=== PATIENT | male | born 1975 | race Caucasian/White ===

== ENCOUNTER 2022-03-22 08:44 | Outpatient (REF) | payer BC, SELFPAY ==
[2022-03-22 14:57] LABS: HCT 39.7 % (40.0-50.0); HGB 13.2 g/dL (13.5-17.5); MCH 28.8 pg (27.0-33.0); MCHC 33.2 % (32.0-36.0); MCV 87 fL (80-95); MPV 9.5 fL (8.0-11.0); Platelet Count 289 10^3/uL (130-400); RBC 4.59 10^6/uL (4.36-5.78); RDW 12.8 % (11.8-14.1); RDW-SD 40.5 fL; WBC 4.74 10^3/uL (4.4-10.8)
[2022-03-22 15:27] LABS: Anion Gap 4.9 mmol/L (3-11); BUN 10 mg/dL (7-18); CO2 29.1 mmol/L (21.0-32.0); CREATININE 0.9 mg/dL (0.70-1.30); Calculated LDL 156 mg/dL (<100); Chloride 104 mmol/L (98-107); Cholesterol 233 mg/dL (<200); Estimated GFR 105.35 (mL/min/1.73m2); Glucose 85 mg/dL (74-106); HDL Cholesterol 53 mg/dL (40-60); Potassium 4.3 mmol/L (3.5-5.1); Sodium 138 mmol/L (136-145); TSH 1.62 uIU/mL (0.36-3.74); Triglyceride 123 mg/dL (<150)
== END 2022-03-22 08:45 | disposition home or self-care (01) ==
LOC: NCHCN 08:44
PROVIDERS: Visit Provider Registered Nurse
DX: R53.83 Other fatigue (principal); R06.83 Snoring; H93.13 Tinnitus, bilateral; Z00.00 Encounter for general adult medical examination without abnormal findings
CPT/HCPCS: 80048; 80061; 85027; 84443

== ENCOUNTER 2022-08-23 15:19 | Outpatient (REF) | payer BC, SELFPAY ==
[2022-08-23 15:56] LABS: Abs Immature Grans 0.01 10^3/uL (0.0-0.06); Absolute Basophil Count 0.02 10^3/uL (0.0-0.2); Absolute Eosinophil Count 0.08 10^3/uL (0.0-0.7); Absolute Lymphocyte Count 2.34 10^3/uL (1.2-3.4); Absolute Monocyte Count 0.38 10^3/uL (0.1-0.8); Absolute Neutrophil Count 1.33 10^3/uL (1.2-6.7); Basophils % 0.5; Eosinophils % 1.9; HCT 41.2 % (40.0-50.0); Immature Grans % 0.2; Lymphocytes % 56.3; MCV 86 fL (80-95); MPV 9.5 fL (8.0-11.0); Monocytes % 9.1; Platelet Count 304 10^3/uL (130-400); RBC 4.82 10^6/uL (4.36-5.78); RDW 12.8 % (11.8-14.1); RDW-SD 40.1 fL; WBC 4.16 10^3/uL (4.4-10.8)
[2022-08-23 16:14] LABS: ESR 4 mm/hr (0-15)
[2022-08-23 17:18] LABS: Iron 119 ug/dL (65-175); Total Iron Binding Capacity 246 ug/dL (250-450); Transferrin Sat 48 % (20-55)
[2022-08-24 10:39] LABS: Calculated LDL 172 mg/dL (<100); Cholesterol 251 mg/dL (<200); HDL Cholesterol 56 mg/dL (40-60); Triglyceride 116 mg/dL (<150)
[2022-08-24 10:40] LABS: Ferritin 118 ng/mL (26-388); TSH 1.97 uIU/mL (0.36-3.74)
[2022-08-24 12:57] LABS: C-Reactive Protein 0.07 mg/dL (0.0-0.3)
== END 2022-08-23 15:20 | disposition home or self-care (01) ==
LOC: NCHCN 15:19
PROVIDERS: Visit Provider Family Medicine
DX: Z00.00 Encounter for general adult medical examination without abnormal findings (principal); R00.2 Palpitations; Z86.39 Personal history of other endocrine, nutritional and metabolic disease
CPT/HCPCS: 80061; 85652; 82728; 83540; 83550; 84443; 85025; 86140

== ENCOUNTER 2022-09-21 18:18 | Outpatient (REF) | payer BC, SELFPAY ==
[2022-09-21 21:10] LABS: HCT 37.8 % (40.0-50.0); HGB 12.7 g/dL (13.5-17.5); MCH 28.7 pg (27.0-33.0); MCHC 33.6 % (32.0-36.0); MCV 86 fL (80-95); MPV 9.5 fL (8.0-11.0); Platelet Count 302 10^3/uL (130-400); RBC 4.42 10^6/uL (4.36-5.78); RDW 12.8 % (11.8-14.1); RDW-SD 39.8 fL; WBC 5.38 10^3/uL (4.4-10.8)
[2022-09-21 21:21] LABS: ALT 38 U/L (16-63); AST 30 U/L (15-37); Albumin 4.1 g/dL (3.4-5.0); Alkaline Phosphatase 63 U/L (46-116); Anion Gap 5.7 mmol/L (3-11); BUN 15 mg/dL (7-18); Bilirubin, Total 0.2 mg/dL (0.2-1.0); CO2 30.3 mmol/L (21.0-32.0); CREATININE 1.3 mg/dL (0.70-1.30); Calcium 9.2 mg/dL (8.5-10.1); Chloride 102 mmol/L (98-107); Estimated GFR 67.76 (mL/min/1.73m2); Glucose 90 mg/dL (74-106); Potassium 4.2 mmol/L (3.5-5.1); Sodium 138 mmol/L (136-145); Total Protein 7.5 g/dL (6.4-8.2)
[2022-09-27 16:28] LABS: HLA-B27 Result Positive
== END 2022-09-21 18:19 | disposition home or self-care (01) ==
LOC: NCHCN 18:18
PROVIDERS: Visit Provider Family Medicine
DX: M47.9 Spondylosis, unspecified (principal); M46.1 Sacroiliitis, not elsewhere classified; D64.9 Anemia, unspecified; R10.32 Left lower quadrant pain; R00.2 Palpitations; R53.83 Other fatigue
CPT/HCPCS: 80053; 85027; 86812

== ENCOUNTER 2022-09-26 16:15 | Outpatient (REF) | payer BC, SELFPAY ==
[2022-09-30 14:35] LABS: Calprotectin <50.0 mcg/g
== END 2022-09-26 16:16 | disposition home or self-care (01) ==
LOC: NCHCN 16:15
PROVIDERS: Visit Provider Family Medicine
DX: R10.32 Left lower quadrant pain (principal)
CPT/HCPCS: 83993

== ENCOUNTER 2023-07-23 10:33 | Outpatient (REF) | payer BC, SELFPAY ==
[2023-07-23 15:32] LABS: Calculated LDL 182 mg/dL (<100); Cholesterol 294 mg/dL (<200); HDL Cholesterol 48 mg/dL (40-60); Triglyceride 321 mg/dL (<150)
== END 2023-07-23 10:34 | disposition home or self-care (01) ==
LOC: NCHCN 10:33
PROVIDERS: Referring Provider Family Medicine; Visit Provider Family Medicine
DX: E78.5 Hyperlipidemia, unspecified (principal)
CPT/HCPCS: 80061

== ENCOUNTER 2024-01-07 09:02 | Outpatient (REF) | payer BC, SELFPAY ==
--- OUTSIDE RECORDS SUMMARY | 2024-01-07 09:06 | XMS_ITS ---
Author Organization Unknown Address [address] [place] [address] [phone] Phone Care Team Providers Care Director Of Respiratory Therapy Name Role Phone ALEA Ely Attending Unavailable Social History Type Status Start Date End Date Code Code Syst em Sex Male Hospital Discharge Instructions Should you have any questions prior to discharge, please contact a member of your healthcare team. If you have left the hospital and have any questions, please contact your primary care physician. Reason For Referral No Data Found Plan of Treatment No Data Found Encounters Encounter Diagnosis Start Date Code Code Sys tem Snoring 02/09/2023 SNOMED-CT Personal Care Team Section Performer Name Performer Role Active Date Inactive Da te
--- OUTSIDE RECORDS SUMMARY | 2024-01-07 09:07 | XMS_ITS | Encounter Summary ---
Author Organization [facility] Address [address] [place] [address] Care Team Providers Care Back Sizer Name Role Phone Mariia Burt MD Primary Care Provider [phone] Reason for Visit * Reason Comments Eye Problem Ankylosing spondylit is - here for a complete exam per Rheumatology * Consult (Routine/Next Available) - Authorization Not Required Specialty Diagnoses / Procedures Referred By Contsoraida t Referred To Contact Ophthalmology Diagnoses Vision changes Tee Narayanan MBBS [address] [facility], [facility] [address] [place] [address] [address] Referral ID Status Reason Start Date Expiration Date Visits Requested Visits Authorized [id number] Authorization Not Required Specialty Services Required 01/04/2023 1 1 Encounter Details Date Type Department Care Team (Late st Contact Info) Description 04/23/2023 14:00 EST Office Visit [facility] Ophthalmology [address] [address] Mireille Williamson MD [address] [place] [phone] Social History Tobacco Use Types Packs/Day Years Used Date Smoking Tobacco: Never Smokeless Tobacco: Never Alcohol Use Standard Drinks/Week Comments Yes 1 (1 standard drink = 0.6 oz pur e alcohol) Sex and Gender Information Value Date Recorded Sex Assigned at Not on file Gender Identity Male 08/15/2021 15:14 EDT Sexual Orientation Not on file documented as of this encounter Functional Status Functional Status Response Date of Assess ment Are you deaf or do you have serious difficulty h earing? No 08/15/2021 Because of a physical, menta l, or emotional condition, does this person have difficulty doing errands alone such as visiting a doctor's office or shopping? No 04/11/2023 Cognitive Status Response Date of Assessm ent Because of a physical, menta l, or emotional condition, does this person have serious difficulty concentrating, remembering, or making decisions? No 04/11/2023 documented as of this encounter Progress Notes * Mireille Williamson MD - 04/23/2023 1400 EST Chief Complaint Patient presents with ??? Eye Problem Ankylosing spondylitis - here for a complete exam per Rheumatology HPI The patient is a 48 y.o. male with ankylosing spondylitis, diagnosed 01/2023 by Rheum (Oracio). Referred by Rheum for vision changes and concern for uveitis. Over the past couple of months pt has noticed an overall decrease in the vision, ruy distance and mid-distance, ruy when watching TV. Got specswith [facility] a number of months ago, has not gotten used to wearing them yet so has only worn them about 5% of the time (this is his first ever pair of glasses). No episodes of eye redness/pain. Sometimes when outside on a bright day or by a bright window will have a visual episode which lasts 15-30 min, will see blind spots off to the sides with fireworks going off, more often the left eye. He has mentioned this to previous docs who have not seemed concerned. Routine care with [facility]. Right Eye: Blurred Vision Left Eye: Blurred Vision Visual Aid: Glasses Current Rx Age Location: Pain: 0 - No pain Quality: Severity: Duration: Timing: Lasts: Context: Here for a complete exam has noticed a decrease in overall vision, saw [facility] 5 months ago and was given specs, has not worn them much. No pain or redness with the eyes. Does occas have light sensitivity due to headaches. Has a bump on left upper lid for years, no bleeding, no discharge, no change in size. 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 Plant Operator: Exposures: None Other: Attestation: Base Eye Exam Visual Acuity (Snellen - Linear) Right Left Dist sc 20/25 20/50 +2 Dist cc 20/20 20/20 Correction: Glasses Uncorrected VA checked post dilation Tonometry (Applanation, 14:10) Right Left Pressure 16 16 Pupils Pupils APD Right PERRL None Left PERRL None Visual Zepeda (Counting fingers) Right Left Full Full Extraocular Movement Right Left Full Full Neuro/Psych Oriented x3: Yes Mood/Affect: Normal Dilation Both eyes: Tropicamide 1%, Phenylephrine 2.5% @ 14:11 Slit Lamp and Fundus Exam External Exam Right Left External Normal Normal Slit Lamp Exam Right Left Lids/Lashes Normal Papillomatous lesion mid upper lid Conjunctiva/Sclera White and quiet White and quiet Cornea Clear, no KP Clear, no KP Anterior Chamber Deep and quiet, no cell Deep and quiet, no cell Iris Round and reactive, no synechiae Round and reactive, no synechiae Lens Very trace Nuclear Sclerosis Very trace Nuclear Sclerosis Fundus Exam Right Left Vitreous Normal Normal Disc Intact Rim Intact Rim C/D Ratio 0.1 0.1 Macula Normal Normal Vessels Normal Normal Periphery Normal Normal Refraction Wearing Rx Sphere Cylinder [place] Add Right -1.00 +0.75 089 +1.00 Left -1.25 +1.00 129 +1.00 Manifest Refraction (Auto) Sphere Cylinder [place] Right -1.25 +0.75 075 Left -1.00 +0.75 135 Pt defers DIAGNOSTIC TESTS: IMPRESSION & PLAN: ??? Spondyloarthropathy - ankylosing spondylitis, diagnosed 01/2023. HLA B27 pos. No h/o symptoms consistent with uveitis. No ocular finding suggestive of prior episodes of uveitis. - discussed potential eye involvement, urged to call here or [facility] with pain, decreased vision, light sensitivity, eye redness. - continue as per Rheum - f/u one year for complete exam (he prefers this here for now) ??? Migraine variant - symptoms of visual disturbance with bright light c/w migraine variant - discussed, observe ??? Refractive error - - continue in current rx, as per Terry - encouraged William to wear his specs more I have reviewed the patient's past medical, family, social and surgical history. I have also reviewed the patient's medications, allergies, and problem list. I performed my own HPI and have reviewed the tech's ROS as well. I completed this exam personally. No procedures were performed at the time of the visit. I am scribing for Mirielle Williamson MD, while she is personally performing the service. YOSHI Puri Patient Education Topic: ankylosing spondylitis Method: Verbal Taught to: Patient Barriers: None Outcomes: independent Signature: Mireille Williamson MD documented in this encounter Plan of Treatment Upcoming Encounters Date Type Department Care Team (Late st Contact Info) Description 04/10/2024 10:15 EST Office Visit [facility] Rheumatology [address] [place] [address] Tee Narayanan MBBS [address] [place] [address] [address] [place] [address] documented as of this encounter Visit Diagnoses Diagnosis Spondyloarthropathy- Primary Spondylosis of unspecified site without mention of myelopathy Migraine variant Variants of migraine, not elsewhere classified, without mention of intractable migraine without mention of status migrainosus Refractive error Unspecified disorder of refraction and accommodation documented in this encounter Eye Exam Visual Acuity (Snellen - Linear) Right eye Left eye Dist sc 20/25 20/50 +2 Dist cc 20/20 20/20 Correction: Glasses Uncorrected VA checked post dilation Tonometry (Applanation, 14:10) Right eye Left eye Pressure 16 16 Pupils Pupils APD Right eye PERRL None Left eye PERRL None Visual Zepeda (Counting fingers) Right eye Left eye Full Full Extraocular Movement Right eye Left eye Full Full Neuro/Psych Oriented x3: Yes Mood/Affect: Normal Dilation Both eyes: Tropicamide 1%, P henylephrine 2.5% @ 14:11 External Exam Right eye Left eye External Normal Normal Slit Lamp Exam Right eye Left eye Lids/Lashes Normal Papillomatous le alaina mid upper lid Conjunctiva/Sclera White and quiet White and isidro et Cornea Clear, no KP Clear, no KP Anterior Chamber Deep and quiet, no cell Deep an d quiet, no cell Iris Round and reactive, no synechiae Round and reactive, no synechiae Lens Very trace Nuclear Sclerosis Wanda y trace Nuclear Sclerosis Fundus Exam Right eye Left eye Posterior Vitreous Normal Normal Disc Intact Rim Intact Rim C/D Ratio 0.1 0.1 Macula Normal Normal Vessels Normal Normal Periphery Normal Normal Wearing Rx Sphere Cylinder [place] Add Right eye -1.00 +0.75 089 +1.00 Left eye -1.25 +1.00 129 +1.00 Manifest Refraction (Auto) Sphere Cylinder [place] Right eye -1.25 +0.75 075 Left eye -1.00 +0.75 135 Pt defers Care Teams Back Sizer Relationship Specialty Start Date End Date Mariia Burt MD [address] [place] [phone] PCP - General Family Medicine - Primary Care 08/25/22 documented as of this encounter
--- OUTSIDE RECORDS SUMMARY | 2024-01-07 09:07 | XMS_ITS | Encounter Summary ---
Author Organization [facility] Address [address] [place] [address] Care Team Providers Care Highway Technician Name Role Phone Mariia Burt MD Primary Care Provider [phone] Reason for Visit * Reason Onset Date Comments Prior Auth, Medication 05/24/2023 Humira Encounter Details Date Type Department Care Team (Late st Contact Info) Description 05/24/2023 Telephone [facility] - [facility] Rheumatology [address] [place], [place] [address] Tee Narayanan MBBS [address] [place] [address], [facility] [address] [place] [address] Prior Auth, Medication (Humira) Social History Tobacco Use Types Packs/Day Years [...] No 04/11/2023 documented as of this encounter Miscellaneous Notes * Telephone Encounter - Allyssa Delfina - 05/24/2023 0905 EST Prior Authorization Approval Medication: Humira pen 40mg q14d (Name, Strength, Frequency) Insurance: [employer] Insurance Type: Commercial Approval Dates: through 11/23/2023 Authorization Number: [id number] Benefits Information: Required Pharmacy: No requirement [facility] able to fill?: No Requirement Additional Info/Other Notes: uploaded to scans Prior Authorization Submission Process - Routine New Medication: Humira pen 40mg q14d (Name, Strength, Frequency) Insurance: [employer] Insurance Type: Commercial Date PA Request Received: 05/04/2023 PA Submission Date: 05/24/2023 CMM: [id number] Notes: Submitted by: Delfina Phone: [phone] documented in this encounter Plan of Treatment Upcoming Encounters Date Type Department Care Team (Late st Contact Info) Description 04/10/2024 10:15 EST Office Visit [facility] Rheumatology [address] [place] [address] Tee Narayanan MBBS [address] [facility], [facility] [address] [place] [address] documented as of this encounter Visit Diagnoses Not on filedocumented in this encounter Care Teams Highway Technician Relationship Specialty Start Date End Date Mariia Burt MD [address] [place] [address] PCP - General Family Medicine - Primary Care 08/25/22 documented as of this encounter
--- OUTSIDE RECORDS SUMMARY | 2024-01-07 09:07 | XMS_ITS | Encounter Summary ---
Author Organization [facility] Address [address] [place] [address] Care Team Providers Care Vegetable Trimmer Name Role Phone Mariia Burt MD Primary Care Provider [phone] Encounter Details Date Type Department Care Team (Latest Contact Info) Description 09/19/2023 Specialty Pharmacy [facility] [address] [place], [place] [address] [facility] Refill Coordination Outreach for Rheumatology Social History Tobacco Use Types Packs/Day Years [...] No 04/11/2023 documented as of this encounter Plan of Treatment Upcoming Encounters Date Type Department Care Team (Late st Contact Info) Description 04/10/2024 10:15 EST Office Visit [facility] - [facility] Rheumatology [address] [place] [address] Tee Narayanan MBBS [address] [facility], [address] [place] [phone] documented as of this encounter Visit Diagnoses Not on filedocumented in this encounter Care Teams Vegetable Trimmer Relationship Specialty Start Date End Date Mariia Burt MD [address] [place] [phone] PCP - General Family Medicine - Primary Care 08/25/22 documented as of this encounter
--- OUTSIDE RECORDS SUMMARY | 2024-01-07 09:07 | XMS_ITS ---
Author Organization Unknown Address [address] [place] [phone] Phone Care Team Providers Care Managed Care Provider Name Role Phone ALEA Ely Attending Unavailable [...] Diagnosis Start Date Code Code Sys tem Obstructive sleep apnea syndrome 07/20/2023 [id number] SNOMED-CT Personal Care Team Section Performer Name Performer Role Active Date Inactive Da braulio
--- OUTSIDE RECORDS SUMMARY | 2024-01-07 09:07 | XMS_ITS | Encounter Summary ---
Author Organization [facility] Address [address] [place] [address] Care Team Providers Care Bass Fisher Name Role Phone Mariia Burt MD Primary Care Provider [phone] Reason for Referral * Consult (Routine/Next Available) - Authorized Specialty Diagnoses / Procedures Referred By [facility] t Referred To Contact Pharmacy Diagnoses Ankylosing spondylitis of multiple sites in spine ([facility]) Tee Narayanan MBBS [address] [facility], [facility] [address] [place] [address] [facility] [address] [place] [phone] Referral ID Status Reason Start Date Expiration Date Visits Requested Visits Authorized [id number] Authorized Specialty Services Required 05/04/2023 1 1 Question Answer PA Type: New Medication to be Prior Authorized: Humira 40 mg/0.4 ml auto inject pens once every 2 weeks. Dispense 2 pens with 5 refills. Comments The purpose of this request is to inform precertification staff that the requested service needs to be reviewed for prior-authorization. New start of Humira for treatment of Ankylosing Spondylitis. Reason for Visit * Reason Onset Date Comments Medication Management 05/04/2023 Prior Auth, Medication 05/04/2023 Encounter Details Date Type Department Care Team ([facility] st Contact Info) Description 05/04/2023 Telephone [facility] Rheumatology [address] [place] [phone] Tee Narayanan MBBS [address] [facility], [address] [place] [address] Medication Management; Prior Auth, Medication Social History Tobacco Use Types Packs/Day Years [...] encounter Miscellaneous Notes * Telephone Encounter - Gricelda Rivera RN - 05/04/2023 1536 EST [id number] placed for humira and patient notified that can take 2-3 weeks and once approved, the pharmacist will call to schedule an injection teaching appointment. * Telephone Encounter - Zina Nice - 05/04/2023 1448 EST Patient called to let Dr. Narayanan know that he has decided he would like to go forward with starting on Humira. documented in this encounter Plan of Treatment Upcoming Encounters Date Type Department Care Team (Late st Contact Info) Description 04/10/2024 10:15 EST Office Visit [facility] - [facility] Rheumatology [address] [place] [address] Tee Narayanan MBBS [address] [facility], [address] [place] [phone] Scheduled Referrals Name Type Priority Associated Diagnoses Order Schedule AMB CONS/FOLLOW UP SPECIALTY PHARMACY Outpatient Referral Routine/Next Available Ankylosing spondylitis of multiple sites in spine ([facility]) Expected: 05/11/2023 (Approximate), Expires: 05/04/2024 documented as of this encounter Visit Diagnoses Diagnosis Ankylosing spondylitis of multiple sites in spine ([facility])- Primary Ankylosing spondylitis documented in this encounter Care Teams Bass Fisher Relationship Specialty Start Date End Date Mariia Burt MD [address] [place] [phone] PCP - General Family Medicine - Primary Care 08/25/22 documented as of this encounter
--- OUTSIDE RECORDS SUMMARY | 2024-01-07 09:07 | XMS_ITS | Referral Summary ---
Author Organization [facility] Address [address] [place] [address] Care Team Providers Care Health Care Legal Assistant Name Role Phone Mariia Burt MD Primary Care Provider [phone] Encounters Date Type Department Care Team Description 12/24/2023 Specialty Pharmacy [facility] [address] [place] [address] [id number] Humble Sheikh RPH Refill Coordination Outreach for Rheumatology 11/28/2023 Telephone [facility] Rheumatology & Immunology [address] [id number] Tee Narayanan MBBS 11/21/2023 Telephone [facility] Rheumatology Immunology [address] [id number] Tee Narayanan MBBS Medications Refill 11/21/2023 Specialty Pharmacy [facility] [address] [place] [address] [phone] Humble Sheikh RPH Refill Coordination Outreach for Rheumatology 10/22/2023 Specialty Pharmacy [facility] [address] [place] [address] [phone] Humble Sheikh RPH Refill Coordination Outreach for Rheumatology 10/15/2023 12:00 EDT Phlebotomy Only [facility] - Outpatient Phlebotomy Drawing [address] [place] [address] Lab, [facility] [place] Phlebotomy Sacroiliitis ([facility]-CMS); Spondyloarthropathy 10/11/2023 Specialty Pharmacy [facility] [address] [place] [phone] Humble Sheikh Faiza Clinical Follow-up (2x annually) for Rheumatology 10/09/2023 15:45 EDT Office Visit [facility] Rheumatology [address] [place] [address] Tee Narayanan MBBS Ankylosing spondylitis of multiple sites in spine (HCC-CMS) (Primary Dx); Sacroiliitis (HCC-CMS); Spondyloarthropathy; High risk medication use; Encounter for long-term (current) use of medications; Drug-induced immunodeficiency (HCC-CMS) from Last 3 Months Allergies No known active allergies Medications Medication Sig Dispensed Refills Start Date End Date Status cetirizine (ZYRTEC) 10 mg tablet Take 1 Tablet by mouth daily. Active meloxicam (MOBIC) 15 mg tablet Take 1 Tablet by mouth daily. Active psyllium husk (FIBER, PSYLLIUM HUSK,) 0.4 gram capsule Take by mouth. Active MULTIVITAMIN ORAL Take by mouth. Act gavin rosuvastatin (CRESTOR) 5 mg tablet Take 1 Tablet by mouth daily. 07/23/2023 Active adalimumab (HUMIRA,CF, PEN) 40 mg/0.4 mL penIndications:Undiffer entiated spondyloarthropathy,Derick ateral sacroiliitis (HCC-CMS) Inject 0.4 mL into the skin every 14 days. 2 Each 5 11/22/2023 Active Active Problems Problem Noted Date Diagnosed Date Blood test positive for human leukocyte antigen (HLA) B27 12/21/2022 Leukopenia 12/21/2022 Undifferentiated spondyloarthropathy 12/21/2022 Bilateral sacroiliitis (HCC-CMS) 12/21/2022 Anemia 12/21/2022 Abdominal pain, LLQ 12/21/2022 Pain of right hip joint 12/21/2022 Low back pain 12/21/2022 Hearing loss 12/21/2022 Palpitations 12/21/2022 Vitamin D deficiency 12/21/2022 Fatigue 12/21/2022 Snoring 12/21/2022 Vision changes 12/21/2022 IBS (irritable bowel syndrome) 12/21/2022 Tinnitus, bilateral 12/21/2022 Immunizations Name Administration Dates Next Due Covid-19 mRNA Vaccine (PFIZE R COVID-19) PF 0.3 ml IM (12 yrs+) 03/22/2022,04/10/2021,09/10/2020 Tdap Vaccine =>7YO IM 06/14/2016 Social History Tobacco Use Types Packs/Day Years Used Date Smoking Tobacco: Never Smokeless Tobacco: Never Tobacco Cessation:Counseling Given: Not Answered Alcohol Use Standard Drinks/Week Comments Yes 1 (1 standard drink = 0.6 oz pur e alcohol) Sex and Gender Information Value Date Recorded Sex Assigned at Not on file Gender Identity Male 08/15/2021 15:14 EDT Sexual Orientation Not on file Last Filed Vital Signs Vital Sign Reading Time Taken Comments Blood Pressure 122/70 10/09/2023 1535 EDT Pulse 69 10/09/2023 1535 EDT Temperature 36.2 ??C (97.2 ??F) 10/09/2023 1535 EDT Respiratory Rate 16 10/09/2023 1535 EDT Oxygen Saturation 95% 10/09/2023 1535 EDT Inhaled Oxygen Concentration - - Weight 83 kg (183 lb) 10/09/2023 1535 EDT Height 180.3 cm (5' 11) 10/09/2023 1535 EDT Body Mass Index 25.52 10/09/2023 1535 EDT Functional Status Functional Status Response Date of [...] concentrating, remembering, or making decisions? No 04/11/2023 Plan of Treatment Upcoming Encounters Date Type Department Care Team (Late st Contact Info) Description 04/10/2024 10:15 EST Office Visit [facility] - [facility] Rheumatology [address] [place] [address] Tee Narayanan MBBS [address] [facility], [facility] [address] [place] [address] Procedures Procedure Name Priority Date/Time Associated Diagnosis Comments COMPREHENSIVE METABOLIC PANEL (CMP) Routine 10/15/2023 12:01 EDT Sacroiliitis ([facility]) Spondyloarthropathy COMPLETE BLOOD COUNT AND DIFFERENTIAL Routine 10/15/2023 12:01 EDT Sacroiliitis ([facility]) Spondyloarthropathy HEPATITIS C AB W REFLEX TO HCV RNA BY PCR Routine 01/04/2023 10:07 EDT Sacroiliitis ([facility]) High risk medication use Encounter for long-term (current) use of medications Drug-induced immunodeficiency ([facility]) from Last 3 Months or Most Recently Relevant to Health Maintenance Results * (ABNORMAL) COMPLETE BLOOD COUNT AND DIFFERENTIAL (10/15/2023 12:01 EDT) WBC 7.21 4.00 - 10.40 K/cmm 10/15/2023 12:17 [facility] RBC 4.51 4.36 - 5.78 M/cmm 10/15/2023 12:17 [facility] Hemoglobin 13.1(L) 13.8 - 17.3 g/dL 10/15/2023 12:17 [facility] HCT 38.9(L) 39.5 - 50.2 % 10/15/2023 12:17 [facility] MCV 86 81 - 95 fL 10/15/2023 12:17 [facility] MCH 29.0 27.6 - 33.0 pg 10/15/2023 12:17 [facility] MCHC 33.7 32.8 - 36.4 g/dL 10/15/2023 12:17 [facility] RDW-CV 12.6 <14.2 % 10/15/2023 12:17 [facility] RDW-SD 39.6 <46.0 fl 10/15/2023 12:17 [facility] PLT 274 141 - 377 K/cmm 10/15/2023 12:17 [facility] MPV 9.2(L) 9.5 - 12.7 fL 10/15/2023 12:17 [facility] % Neutrophils 54.3 % 10/15/2023 12:17 [facility] % Lymphocytes 35.2 % 10/15/2023 12:17 [facility] % Monocytes 8.0 % 10/15/2023 12:17 [facility] % Eosinophils 1.4 % 10/15/2023 12:17 [facility] % Basophils 0.8 % 10/15/2023 12:17 [facility] % Immature Grans 0.3 % 10/15/19 12:17 [facility] Absolute Neutrophils 3.91 2.20 - 8.85 K/cmm 10/15/2023 12:17 [facility] Absolute Lymphocytes 2.54 1.09 - 3.30 K/cmm 10/15/2023 12:17 [facility] Absolute Monocytes 0.58 0.10 - 0.80 K/cmm 10/15/2023 12:17 [facility] Absolute Eosinophils 0.10 0.03 - 0.61 K/cmm 10/15/2023 12:17 [facility] ABS Basophils 0.06 0.01 - 0.11 K/cmm 10/15/2023 12:17 [facility] Absolute Immature Grans 0.02 0.00 - 0.06 K/cmm 10/15/2023 12:17 [facility] Type of Differential: Auto 10/15/2023 12:17 [facility] Blood VENOUS BLOOD / Unknown Venipuncture / Unknown 10/15/2023 12:01 EDT 10/15/2023 12:12 EDT Tee MASON PACKAGES & DNA PROBE ORDERABLES [facility] [address] [place] [address] * (ABNORMAL) COMPREHENSIVE METABOLIC PANEL (CMP) (10/15/2023 12:01 EDT) Sodium 139 136 - 145 mmol/L 10/15/2023 12:56 [facility] Potassium 4.4 3.5 - 5.0 mmol/L 10/15/2023 12:56 [facility] Chloride 105 96 - 110 mmol/L 10/15/2023 12:56 [facility] CO2 Total 30 22 - 32 mmol/L 10/15/2023 12:56 [facility] Glucose 87 70 - 99 mg/dl 10/15/2023 12:56 [facility] BUN 13 10 - 26 mg/dL 10/15/2023 12:56 [facility] Creatinine 0.79 0.66 - 1.25 mg/dL 10/15/2023 12:56 [facility] eGFR 109 >60 mL/min/1.7 3m2 10/15/2023 12:56 [facility] Total Protein 7.3 6.3 - 8.2 g/dL 10/15/2023 12:56 [facility] Albumin 4.2 3.4 - 4.9 g/dL 10/15/2023 12:56 [facility] Alkaline Phosphatase 71 38 - 126 U/L 10/15/2023 12:56 [facility] AST 32 15 - 46 U/L 10/15/2023 12:56 [facility] ALT 44 <50 U/L 10/15/2023 12:56 [facility] Bilirubin, Total <0.5 <1.4 mg/dL 10/15/19 12:56 [facility] Calcium 9.4 8.5 - 10.5 mg/dL 10/15/2023 12:56 [facility] Albumin/Globulin Ratio 1.4 1.0 - 2.5 10/15/2023 12:56 [facility] Anion Gap 4(L) 5 - 14 mmol/L 10/15/2023 12:56 EDT [facility] Blood VENOUS BLOOD / Unknown Venipuncture / Unknown 10/15/2023 12:01 EDT 10/15/2023 12:27 EDT Tee EWING CHEMISTRY & BLOOD GA S ORDERABLES [facility] [address] [place] [address] * HEPATITIS C AB W REFLEX TO HCV RNA BY PCR (01/04/2023 10:07 EDT) Hep C Antibody Negative Negative 01/04/2023 11:35 EDT [facility] Blood VENOUS BLOOD / Unknown Venipuncture / Unknown 01/04/2023 10:07 EDT 01/04/2023 10:22 EDT Tee EWING CHEMISTRY & BLOOD GA S ORDERABLES [facility] [address] [place] [address] from Last 3 Months or Most Recently Relevant to Health Maintenance Care Teams Health Care Legal Assistant Relationship Specialty Start Date End Date Mariia Burt MD [address] [place] [phone] PCP - General Family Medicine - Primary Care 08/25/22
--- OUTSIDE RECORDS SUMMARY | 2024-01-07 09:07 | XMS_ITS | Encounter Summary ---
Author Organization [facility] Address [address] [place] [address] Care Team Providers Care Junior Manufacturing Engineer Name Role Phone Mariia Burt MD Primary Care Provider [phone] Reason for Visit * Reason Comments Follow-up F/u Sacroiliitis, po ssible humaria? Or other medication to add to meloxicam Encounter Details Date Type Department Care Team (Late st Contact Info) Description 04/11/2023 14:00 EST Office Visit [facility] Rheumatology [address] [place] [address] Tee Narayanan MBBS [address] [facility], [facility] [address] [place] [address] Spondyloarthropathy (Primary Dx); Sacroiliitis (HCC-CMS) Social History Tobacco Use Types Packs/Day Years Used Date Smoking Tobacco: Never Smokeless Tobacco: Never Alcohol Use Standard Drinks/Week Comments Yes 1 (1 standard drink = 0.6 oz pur e alcohol) Sex and Gender Information Value Date Recorded Sex Assigned at Not on file Gender Identity Male 08/15/2021 15:14 EDT Sexual Orientation Not on file documented as of this encounter Last Filed Vital Signs Vital Sign Reading Time Taken Comments Blood Pressure 120/82 04/11/2023 1359 EST Pulse - - Temperature - - Respiratory Rate - - Oxygen Saturation - - Inhaled Oxygen Concentration - - Weight - - Height - - Body Mass Index - - documented in this encounter Functional Status Functional Status Response [...] No 04/11/2023 documented as of this encounter Patient Instructions * Patient Instructions* Tee Narayanan MBBS - 04/11/2023 14:00 EST - Continue home exercise. - Continue meloxicam 15mg daily as needed. Continuous NSAID use reported to slow radiographic progression. - Adalimumab use at patient request documented in this encounter Progress Notes * Tee Narayanan MBBS - 04/11/2023 1400 EST Images from the original note were not included. [facility] Rheumatology Clinic Follow-up Visit Date of Service: 04/11/2023 Patient ID Jayy Christianson Chief Compliant: Chief Complaint Patient presents with ??? Follow-up F/u Sacroiliitis, possible humaria? Or other medication to add to meloxicam Pertinent Rheumatologic history and problem list: > PC: SpA () > Workup: HLA-B27 positive and ESR 18 [ULN 15]. RF and CCP negative. Sacroiliitis on MRI. > Management: NSAIDs. Subjective / HPI: Jayy Christianson is an 48-year-old gentleman with a background of ankylosing spondylitis and tinnitus who presented to [facility] rheumatology clinic for a follow up visit. Mr. Christianson presented to [facility] rheumatology 01/2023 with a 7 - 8 year history of neck, lower back, hip, knee, ankle and right mid-foot arthralgia. Intermittent knee, ankle and right mid-foot arthralgia. Symptoms associated with prolonged morning stiffness. Additionally described abdominal pain (umbilical / LLQ pain, bloating, constipation / diarrhea without hematochezia or melena) and painless vision changes. Denied transient joint swelling, psoriasis, enthesitis, dactylitis or urethritis. On examination Guzman's 3cm (abnormal) and Occiput test 0cm. Labs remarkable for HLA-B27 positive and ESR18 [ULN 15]. RF and CCP negative. Spine radiographs identified mild lumbar spondylosis and early C-spine DDD without evidence of . MRI identified bilateral asymmetric sacroiliitis. Mr. Christianson was diagnosed with SpA (ankylosing spondylitis). Patient managed with home exercises, referred to PT, started on NSAIDs and information provided on TNFi Interval history: - (02/2023) ENT evaluation On assessment today: - Reports significant improving arthralgia involving neck, lower back, hips, knees and ankles in response to meloxicam. - Denies prolonged morning stiffness - Denies recent swollen, erythematous or warm joints. - Reduced visual acuity (L > R). Denies eye pain or redness. Awaiting ophthalmology evaluation. - Denies psoriasis, dactylitis or enthesitis. - Tolerating meloxicam well without side effects. Review of Systems: A complete 10 point ROS was performed and pertinent positive and negative findings listed in HPI, otherwise negative. ??? Medications and allergies reviewed ??? Problem list reviewed ??? Past medical history and Past surgical history reviewed Objective: Physical Exam BP 120/82 General: No acute distress. Alert, fully oriented. HEENT: Conjunctivae/corneas clear. Pupils equal, Sclerae anicteric. Mucus membranes moist; oropharynx clear. Neck symmetrical, trachea midline Extremities: Extremities without cyanosis or edema. Skin: No rashes or lesions Musculoskeletal: Hand: No synovitis, muscle wasting or deformity. Full range of movement. Elbow: No tenderness on palpation of medial or lateral epicondyle. Normal range of motion. No nodules. Shoulder: No synovitis or swelling. Normal range of motion in shoulders bilaterally. Spine: No vertebral or SI joint tenderness. Hip: No tenderness on palpation over anterior superior iliac crest, greater trochanter. No pain with log roll. ROM normal. MICHA negative. Knee: No asymmetry, muscle wasting, scars or deformities. No joint effusions or swellings. No tenderness on palpation of femoral epicondyle or tibial tuberosity. Foot: No tenderness on palpation of the ankles or MTP joint bilaterally. Normal range of movement. Guzman's 9cm Occiput test 0cm Investigations: I have independently reviewed labs / imaging Labs: - Reviewed Imaging: - (08/25/22) XR right hip: 1. No right hip osseous abnormality is detected. ?? - (08/25/22) XR lumbar spine: 1. ??Mild lumbar spondylosis. 2. ??No significant spondylolisthesis. ?? - (10/12/22) MR SI joints: - (01/04/23) XR C-spine: 1. No specific evidence of ankylosing spondylitis is detected. 2. Very early lower cervical spine degenerative disc and facet disease. ?? - (01/04/23) XR T-spine: 1. No thoracic spine bony abnormality detected. No imaging evidence of thoracic ankylosing spondylitis is seen. ?? Questionnaires: 04/11/2023 14:02 RAPID3 SCORES AND INTERPRETATION Functional Status 0 Pain Tolerance 1 Global Estimate 1 RAPID3 2 Interpretation Near Remission RAPID3 Score: As documented by Nurses/MAs during this visit and reviewed by me. Assessment & Plan: Ankylosing spondylitis: Dx 2022. HLA-B27 positive. Sacroiliitis on MRI. Currently managed with NSAIDs. On assessment today reports significant improvement in arthralgia (axial and b/l hip, knee and ankle) in response to regular meloxicam use. Denies prolonged morning stiffness. Tolerating meloxicam daily. Notes left > right reduced visual acuity. On examination increasing Guzman's 9cm and Occiput test 0cm. Labs reviewed (01/2023). RAPID3 2. Overall feel SpA well controlled. - Continue home exercise. - Continue meloxicam 15mg daily as needed. Continuous NSAID use reported to slow radiographic progression. - Discussed that adalimumab is more effective at NSAIDS at slowing disease progression and improving function over time, but, that symptoms are currently well controlled with regular NSAID use. Meloxicam can cause stomach upset, stomach bleeding, decreased kidney function, increased blood pressure,increased risk of heart attack and stroke. If taking one of these medications daily, it is recommended to monitor blood counts, liver and kidney function every 3-4 months. - Submit adalimumab 40mg every 14-days prior auth at patient request. Potential to increase dosing interval to 21- or 28-days if symptoms were well controlled. Health maintenance: - Order CBC and CMP every 3-months with regular NSAID use. - Hepatitis serologies and quantiferon negative (2022) - Immunizations: Recommend COVID19 booster and seasonal flu vaccine. - Awaiting ophthalmology evaluation ? uveitis 04/[address] Narayanan in 3 months MARLON Sutherland, 04/11/2023 14:32 I spent a total of 30 minutes on the date of this encounter meeting with the patient and reviewing documentation/coordinating care as described in the above note. No procedures were performed at the time of the visit. documented in this encounter Plan of Treatment Upcoming Encounters Date Type Department Care Team (Late st Contact Info) Description 04/10/2024 10:15 EST Office Visit [facility] Rheumatology [address] [place] [address] Tee Narayanan MBBS [address] [facility] [address] [place] [address] Scheduled Orders Name Type Priority Associated Diagnoses Orde r Schedule COMPLETE BLOOD COUNT AND DIFFERENTIAL Lab Routine Sacroiliitis ([facility]) Spondyloarthropathy Every 12-Weeks for 12 Occurrences starting 04/11/2023 until 04/11/2024, 2 completed COMPREHENSIVE METABOLIC PANEL (CMP) Lab Routine Sacroiliitis ([facility]) Spondyloarthropathy Every 12-Weeks for 12 Occurrences starting 04/11/2023 until 04/11/2024, 2 completed documented as of this encounter Results * (ABNORMAL) COMPREHENSIVE METABOLIC PANEL (CMP) (10/15/2023 12:01 EDT) Sodium 139 136 - 145 mmol/L 10/15/2023 12:56 [facility] Potassium 4.4 3.5 - 5.0 mmol/L 10/15/2023 12:56 [facility] Chloride 105 96 - 110 mmol/L 10/15/2023 12:56 [facility] CO2 Total 30 22 - 32 mmol/L 10/15/2023 12:56 [facility] Glucose 87 70 - 99 mg/dl 10/15/2023 12:56 [facility] BUN 13 10 - 26 mg/dL 10/15/2023 12:56 [facility] Creatinine 0.79 0.66 - 1.25 mg/dL 10/15/2023 12:56 [facility] eGFR 109 >60 mL/min/1.7 3m2 10/15/2023 12:56 [facility] Total Protein 7.3 6.3 - 8.2 g/dL 10/15/2023 12:56 [facility] Albumin 4.2 3.4 - 4.9 g/dL 10/15/2023 12:56 [facility] Alkaline Phosphatase 71 38 - 126 U/L 10/15/2023 12:56 [facility] AST 32 15 - 46 U/L 10/15/2023 12:56 [facility] ALT 44 <50 U/L 10/15/2023 12:56 [facility] Bilirubin, Total <0.5 <1.4 mg/dL 10/15/19 12:56 [facility] Calcium 9.4 8.5 - 10.5 mg/dL 10/15/2023 12:56 [facility] Albumin/Globulin Ratio 1.4 1.0 - 2.5 10/15/2023 12:56 [facility] Anion Gap 4(L) 5 - 14 mmol/L 10/15/2023 12:56 [facility] Blood VENOUS BLOOD / Unknown Venipuncture / Unknown 10/15/2023 12:01 EDT 10/15/2023 12:27 EDT Tee MASON CHEMISTRY & BLOOD GA S ORDERABLES [facility] [address] [place] [address] * (ABNORMAL) COMPLETE BLOOD COUNT AND DIFFERENTIAL (10/15/2023 12:01 EDT) WBC 7.21 4.00 - 10.40 K/cmm 10/15/2023 12:17 [facility] RBC 4.51 4.36 - 5.78 M/cmm 10/15/2023 12:17 [facility] Hemoglobin 13.1(L) 13.8 - 17.3 g/dL 10/15/2023 12:17 [facility] HCT 38.9(L) 39.5 - 50.2 % 10/15/2023 12:17 [facility] MCV 86 81 - 95 fL 10/15/2023 12:17 [facility] MCH 29.0 27.6 - 33.0 pg 10/15/2023 12:17 [facility] MCHC 33.7 32.8 - 36.4 g/dL 10/15/2023 12:17 [facility] RDW-CV 12.6 <14.2 % 10/15/2023 12:17 [facility] RDW-SD 39.6 <46.0 fl 10/15/2023 12:17 [facility] PLT 274 141 - 377 K/cmm 10/15/2023 12:17 [facility] MPV 9.2(L) 9.5 - 12.7 fL 10/15/2023 12:17 [facility] % Neutrophils 54.3 % 10/15/2023 12:17 [facility] % Lymphocytes 35.2 % 10/15/2023 12:17 [facility] % Monocytes 8.0 % 10/15/2023 12:17 [facility] % Eosinophils 1.4 % 10/15/2023 12:17 [facility] % Basophils 0.8 % 10/15/2023 12:17 [facility] % Immature Grans 0.3 % 10/15/19 12:17 [facility] Absolute Neutrophils 3.91 2.20 - 8.85 K/cmm 10/15/2023 12:17 [facility] Absolute Lymphocytes 2.54 1.09 - 3.30 K/cmm 10/15/2023 12:17 [facility] Absolute Monocytes 0.58 0.10 - 0.80 K/cmm 10/15/2023 12:17 EDT [facility] Absolute Eosinophils 0.10 0.03 - 0.61 K/cmm 10/15/2023 12:17 [facility] ABS Basophils 0.06 0.01 - 0.11 K/cmm 10/15/2023 12:17 [facility] Absolute Immature Grans 0.02 0.00 - 0.06 K/cmm 10/15/2023 12:17 T [facility] Type of Differential: Auto 10/15/2023 12:17 [facility] Blood VENOUS BLOOD / Unknown Venipuncture / Unknown 10/15/2023 12:01 EDT 10/15/2023 12:12 EDT Tee MASON PACKAGES & DNA PROBE ORDERABLES Performing Organization Address City/State/[facility] Co de Phone Number [facility] [address] [place] [address] * COMPREHENSIVE METABOLIC PANEL (CMP) (04/11/2023 14:46 EST) Sodium 137 136 - 145 mmol/L 04/11/2023 16:02 [facility] Potassium 5.0 3.5 - 5.0 mmol/L 04/11/2023 16:02 [facility] Chloride 103 96 - 110 mmol/L 04/11/2023 16:02 [facility] CO2 Total 27 22 - 32 mmol/L 04/11/2023 16:02 [facility] Glucose 93 70 - 99 mg/dl 04/11/2023 16:02 [facility] BUN 15 10 - 26 mg/dL 04/11/2023 16:02 [facility] Creatinine 0.88 0.66 - 1.25 mg/dL 04/11/2023 16:02 [facility] eGFR 105 >60 mL/min/1.7 3m2 04/11/2023 16:02 [facility] Total Protein 7.6 6.3 - 8.2 g/dL 04/11/2023 16:02 [facility] Albumin 4.3 3.4 - 4.9 g/dL 04/11/2023 16:02 [facility] Alkaline Phosphatase 51 38 - 126 U/L 04/11/2023 16:02 [facility] AST 28 15 - 46 U/L 04/11/2023 16:02 [facility] ALT 19 <50 U/L 04/11/2023 16:02 [facility] Bilirubin, Total 0.5 <1.4 mg/dL 04/11/20 16:02 [facility] Calcium 9.3 8.5 - 10.5 mg/dL 04/11/2023 16:02 [facility] Albumin/Globulin Ratio 1.3 1.0 - 2.5 g/dL 04/11/2023 16:02 [facility] Anion Gap 7 5 - 14 mmol/L 04/11/2023 16:02 [facility] Blood VENOUS BLOOD / Unknown Venipuncture / Unknown 04/11/2023 14:46 EST 04/11/2023 15:30 EST Tee MASON CHEMISTRY & BLOOD GA S ORDERABLES Performing Organization Address City/State/[facility] Co de Phone Number [facility] [address] [place] [address] * (ABNORMAL) COMPLETE BLOOD COUNT AND DIFFERENTIAL (04/11/2023 14:46 EST) WBC 4.25 4.00 - 10.40 K/cmm 04/11/2023 15:54 [facility] RBC 4.45 4.36 - 5.78 M/cmm 04/11/2023 15:54 [facility] Hemoglobin 12.7(L) 13.8 - 17.3 g/dL 04/11/2023 15:54 [facility] HCT 37.4(L) 39.5 - 50.2 % 04/11/2023 15:54 [facility] MCV 84 81 - 95 fL 04/11/2023 15:54 [facility] MCH 28.5 27.6 - 33.0 pg 04/11/2023 15:54 [facility] MCHC 34.0 32.8 - 36.4 g/dL 04/11/2023 15:54 [facility] RDW-CV 12.4 <14.2 % 04/11/2023 15:54 [facility] RDW-SD 37.4 <46.0 fl 04/11/2023 15:54 [facility] PLT 282 141 - 377 K/cmm 04/11/2023 15:54 [facility] MPV 9.5 9.5 - 12.7 fL 04/11/2023 15:54 [facility] % Neutrophils 29.8 % 04/11/2023 15:54 [facility] % Lymphocytes 57.6 % 04/11/2023 15:54 [facility] % Monocytes 10.1 % 04/11/2023 15:54 [facility] % Eosinophils 1.6 % 04/11/2023 15:54 [facility] % Basophils 0.9 % 04/11/2023 15:54 [facility] % Immature Grans 0.0 % 04/11/20 15:54 [facility] Absolute Neutrophils 1.26(L) 2.20 - 8.85 K/cmm 04/11/2023 15:54 [facility] Absolute Lymphocytes 2.45 1.09 - 3.30 K/cmm 04/11/2023 15:54 [facility] Absolute Monocytes 0.43 0.10 - 0.80 K/cmm 04/11/2023 15:54 [facility] Absolute Eosinophils 0.07 0.03 - 0.61 K/cmm 04/11/2023 15:54 [facility] ABS Basophils 0.04 0.01 - 0.11 K/cmm 04/11/2023 15:54 [facility] Absolute Immature Grans 0.00 0.00 - 0.06 K/cmm 04/11/2023 15:54 EST [facility] Type of Differential: Auto 04/11/2023 15:54 EST [facility] Blood VENOUS BLOOD / Unknown Venipuncture / Unknown 04/11/2023 14:46 EST 04/11/2023 15:51 EST Tee MASON PACKAGES & DNA PROBE ORDERABLES Performing Organization Address City/State/[facility] Co de Phone Number [facility] [address] [place] [address] documented in this encounter Visit Diagnoses Diagnosis Spondyloarthropathy- Primary Spondylosis of unspecified site without mention of myelopathy Sacroiliitis ([facility]) Sacroiliitis, not elsewhere classified documented in this encounter Care Teams Junior Manufacturing Engineer Relationship Specialty Start Date End Date Mariia Burt MD [address] [place] [address] PCP - General Family Medicine - Primary Care 08/25/22 documented as of this encounter
--- OUTSIDE RECORDS SUMMARY | 2024-01-07 09:07 | XMS_ITS | Clinical Summary ---
Author Organization [facility] Address [address] [place] [address] Care Team Providers Care Program Services Assistant Name Role Phone Mariia Burt MD Primary Care Provider [phone] Allergies No known active allergies Medications Medication [...] (irritable bowel syndrome) 12/21/2022 Tinnitus, bilateral 12/21/2022 Encounters Date Type Department Care Team Description 12/24/2023 Specialty Pharmacy [facility] [address] [place] [address] [facility]ble Sheikh [facility] Refill Coordination Outreach for Rheumatology 11/28/2023 Telephone [facility] Rheumatology & Immunology [address] [address] Tee Narayanan MBBS 11/21/2023 Telephone [facility] Rheumatology Immunology [address] [address] Tee Narayanan MBBS Medications Refill 11/21/2023 Specialty Pharmacy [facility] [address] [place] [address] [phone] Humble Sheikh [facility] Refill Coordination Outreach for Rheumatology 10/22/2023 Specialty Pharmacy [facility] [address] [place] [address] [phone] Humble Sheikh [facility] Refill Coordination Outreach for Rheumatology 10/15/2023 12:00 EDT Phlebotomy Only [facility] - Outpatient Phlebotomy Drawing [address] [place] [address] Lab, [facility]le[place]omy Sacroiliitis ([facility]); Spondyloarthropathy 10/11/2023 [facility] [address] [address] Humble Sheikh Faiza Clinical Follow-up (2x annually) for Rheumatology 10/09/2023 15:45 EDT Office Visit [facility] Rheumatology [address] [place] [address] Tee Narayanan MBBS Ankylosing spondylitis of multiple sites in spine ([facility]) (Primary Dx); Sacroiliitis ([facility]); Spondyloarthropathy; High risk medication use; Encounter for long-term (current) use of medications; Drug-induced immunodeficiency (HCC-CMS) from Last 3 Months Immunizations Name Administration Dates Next Due Covid-19 mRNA Vaccine (PFIZE R COVID-19) PF 0.3 ml IM (12 yrs+) 03/22/2022,04/10/2021,09/10/2020 Tdap Vaccine =>7YO IM 06/14/2016 Medical History Medical History Date Comments Dyslipidemia Low back pain Environmental allergies Family History Medical History Relation Comments Heart Disease Father Diabetes Maternal Grandfather Relation Status Comments Father Maternal Grandfather Social History Tobacco Use Types Packs/Day Years Used Date Smoking Tobacco: Never Smokeless Tobacco: Never Tobacco Cessation:Counseling Given: Not Answered Alcohol Use Standard Drinks/Week Comments Yes 1 (1 standard drink = 0.6 oz pur e alcohol) Sex and Gender Information Value Date Recorded Sex Assigned at Not on file Gender Identity Male 08/15/2021 15:14 EDT Sexual Orientation Not on file Obstetrics History Last Filed Vital Signs Vital Sign Reading [...] Body Mass Index 25.52 10/09/2023 1535 EDT Plan of Treatment Upcoming Encounters Date Type Department Care Team (Late st Contact Info) Description 04/10/2024 10:15 EST Office Visit [facility] Rheumatology [address] [place] [address] Tee Narayanan MBBS 111 [facility], [address] [place] [address] Health Maintenance Due Date Last Done Comments Hepatitis B Vaccine (1 of 3 - 19+ 3-dose series) 1993 COVID-19 Vaccine (4 - 2022-2 4 season) 2023 03/22/2022, 04/10/2021, 09/10/2020 Hepatitis C Screen Completed 01/04/2023 Procedures Procedure Name Priority Date/Time Associated Diagnosis Comments COMPREHENSIVE METABOLIC PANEL (CMP) Routine 10/15/2023 12:01 EDT Sacroiliitis ([facility]) Spondyloarthropathy COMPLETE BLOOD COUNT AND DIFFERENTIAL Routine 10/15/2023 12:01 EDT Sacroiliitis ([facility]) Spondyloarthropathy HEPATITIS C AB W REFLEX TO HCV RNA BY PCR Routine 01/04/2023 10:07 EDT Sacroiliitis ([facility]) High risk medication use Encounter for long-term (current) use of medications Drug-induced immunodeficiency ([facility]) from Last 3 Months or Most Recently Relevant to Health Maintenance Results * (ABNORMAL) COMPLETE BLOOD COUNT AND DIFFERENTIAL (10/15/2023 12:01 EDT) WBC 7.21 4.00 - 10.40 K/cmm 10/15/2023 12:17 [facility] RBC 4.51 4.36 - 5.78 M/cmm 10/15/2023 12:17 [facility] Hemoglobin 13.1(L) 13.8 - 17.3 g/dL 10/15/2023 12:17 [facility] HCT 38.9(L) 39.5 - 50.2 % 10/15/2023 12:17 [facility] MCV 86 81 - 95 fL 10/15/2023 12:17 [facility] MCH 29.0 27.6 - 33.0 pg 10/15/2023 12:17 [facility] MCHC 33.7 32.8 - 36.4 g/dL 10/15/2023 12:17 [facility] RDW-CV 12.6 <14.2 % 10/15/2023 12:17 [facility] RDW-SD 39.6 <46.0 fl 10/15/2023 12:17 [facility] PLT 274 141 - 377 K/cmm 10/15/2023 12:17 [facility] MPV 9.2(L) 9.5 - 12.7 fL 10/15/2023 12:17 [facility] % Neutrophils 54.3 % 10/15/2023 12:17 [facility] % Lymphocytes 35.2 % 10/15/2023 12:17 [facility] % Monocytes 8.0 % 10/15/2023 12:17 [facility] % Eosinophils 1.4 % 10/15/2023 12:17 [facility] % Basophils 0.8 % 10/15/2023 12:17 [facility] % Immature Grans 0.3 % 10/15/19 12:17 [facility] Absolute Neutrophils 3.91 2.20 - 8.85 K/cmm 10/15/2023 12:17 [facility] Absolute Lymphocytes 2.54 1.09 - 3.30 K/cmm 10/15/2023 12:17 [facility] Absolute Monocytes 0.58 0.10 - 0.80 K/cmm 10/15/2023 12:17 [facility] Absolute Eosinophils 0.10 0.03 - 0.61 K/cmm 10/15/2023 12:17 [facility] ABS Basophils 0.06 0.01 - 0.11 K/cmm 10/15/2023 12:17 [facility] Absolute Immature Grans 0.02 0.00 - 0.06 K/cmm 10/15/2023 12:17 [facility] Type of Differential: Auto 10/15/2023 12:17 [facility] Blood VENOUS BLOOD / Unknown Venipuncture / Unknown 10/15/2023 12:01 EDT 10/15/2023 12:12 EDT Tee MASON PACKAGES & DNA PROBE ORDERABLES [facility] [address] [place] [address] * (ABNORMAL) COMPREHENSIVE METABOLIC PANEL (CMP) (10/15/2023 12:01 EDT) Sodium 139 136 - 145 mmol/L 10/15/2023 12:56 [facility] Potassium 4.4 3.5 - 5.0 mmol/L 10/15/2023 12:56 [facility] Chloride 105 96 - 110 mmol/L 10/15/2023 12:56 [facility] CO2 Total 30 22 - 32 mmol/L 10/15/2023 12:56 [facility] Glucose 87 70 - 99 mg/dl 10/15/2023 12:56 [facility] BUN 13 10 - 26 mg/dL 10/15/2023 12:56 [facility] Creatinine 0.79 0.66 - 1.25 mg/dL 10/15/2023 12:56 [facility] eGFR 109 >60 mL/min/1.7 3m2 10/15/2023 12:56 [facility] Total Protein 7.3 6.3 - 8.2 g/dL 10/15/2023 12:56 [facility] Albumin 4.2 3.4 - 4.9 g/dL 10/15/2023 12:56 [facility] Alkaline Phosphatase 71 38 - 126 U/L 10/15/2023 12:56 [facility] AST 32 15 - 46 U/L 10/15/2023 12:56 [facility] ALT 44 <50 U/L 10/15/2023 12:56 [facility] Bilirubin, Total <0.5 <1.4 mg/dL 10/15/19 12:56 [facility] Calcium 9.4 8.5 - 10.5 mg/dL 10/15/2023 12:56 [facility] Albumin/Globulin Ratio 1.4 1.0 - 2.5 10/15/2023 12:56 [facility] Anion Gap 4(L) 5 - 14 mmol/L 10/15/2023 12:56 EDT [facility] Blood VENOUS BLOOD / Unknown Venipuncture / Unknown 10/15/2023 12:01 EDT 10/15/2023 12:27 EDT Tee EWING CHEMISTRY & BLOOD GA S ORDERABLES [facility] [address] [place] [address] * HEPATITIS C AB W REFLEX TO HCV RNA BY PCR (01/04/2023 10:07 EDT) Hep C Antibody Negative Negative 01/04/2023 11:35 EDT [facility] Blood VENOUS BLOOD / Unknown Venipuncture / Unknown 01/04/2023 10:07 EDT 01/04/2023 10:22 EDT Tee EWING CHEMISTRY & BLOOD GA S ORDERABLES [facility] [address] [place] [address] from Last 3 Months or Most Recently Relevant to Health Maintenance Care Teams Program Services Assistant Relationship Specialty Start Date End Date Mariia Burt MD [address] [place] [phone] PCP - General Family Medicine - Primary Care 08/25/22
--- OUTSIDE RECORDS SUMMARY | 2024-01-07 09:07 | XMS_ITS | Encounter Summary ---
Author Organization [facility] Address [address] [place] [address] Care Team Providers Care Cement Tester Assistant Name Role Phone Mariia Burt MD Primary Care Provider Encounter Details Date Type Department Care Team (Latest Contact Info) Description 12/24/2023 Specialty Pharmacy [facility] [address] [place], [place] [phone] Humble Sheikh [facility] Refill Coordination Outreach for Rheumatology Social History [...] Info) Description 04/10/2024 10:15 EST Office Visit [facility] - [facility] Rheumatology [address] [place] [address] Tee Narayanan MBBS 111 [facility], [address] [place] [phone] documented as of this encounter Visit Diagnoses Not on filedocumented in this encounter Care Teams Cement Tester Assistant Relationship Specialty Start Date End Date Mariia Burt MD [address] [place] [phone] PCP - General Family Medicine - Primary Care 08/25/22 documented as of this encounter
--- OUTSIDE RECORDS SUMMARY | 2024-01-07 09:07 | XMS_ITS | Encounter Summary ---
Author Organization [facility] Address [address] [place] [address] Care Team Providers Care Conference Reservationist Name Role Phone Mariia Burt MD Primary Care Provider [phone] Encounter Details Date Type Department Care Team (Late st Contact Info) Description 11/28/2023 Telephone [facility] Rheumatology & Immunology - [address] [phone] Tee Narayanan MBBS [address] [place] [address], [address] [place] [address] Social History Tobacco Use Types Packs/Day Years [...] encounter Miscellaneous Notes * Telephone Encounter - Gin Lawton - 11/28/2023 1658 EDT Prior Authorization Approval Medication: Humira 40mg/0.4ml, inject 0.4 mL into the skin every 14 days Insurance: [place] Insurance Type: Commercial Approval Dates: 11/29/23-05/30/24 Authorization Number: [id number] Required Pharmacy: [facility] able to fill?: YES Route to [facility] (if applicable): No Prior Authorization Submission Process - Urgent Re-Auth Medication: Humira 40mg/0.4ml, inject 0.4 mL into the skin every 14 days Insurance: [employer] Insurance Type: Commercial Date PA Request Received: 11/28/23 PA Submission Date: 11/29/23 CMM: [id number] Notes: DX: Undifferentiated spondyloarthropathy M47.819,Bilateral sacroiliitis M46.1 Submitted by: [facility] Phone: [phone] * Telephone Encounter - Joi Martin - 11/28/2023 1649 EDT SPRX Request for PA/Funding Drug Name: Humira Next Injection Date: 12/03/23 RX Insurance: [facility] Qty Remainin PA Required: Yes Funding Needed: No documented in this encounter Plan of Treatment Upcoming Encounters Date Type Department Care Team (Late st Contact Info) Description 04/10/2024 10:15 EST Office Visit [facility] Rheumatology [address] [place] [address] Tee Narayanan MBBS 111 [facility] [address] [place] [address] documented as of this encounter Visit Diagnoses Not on filedocumented in this encounter Care Teams Conference Reservationist Relationship Specialty Start Date End Date Mariia Burt MD [address] [place] [phone] PCP - General Family Medicine - Primary Care 08/25/22 documented as of this encounter
--- OUTSIDE RECORDS SUMMARY | 2024-01-07 09:07 | XMS_ITS | Encounter Summary ---
Author Organization [facility] Address [address] [place] [address] Care Team Providers Care Financial Services Professional Name Role Phone Mariia Burt MD Primary Care Provider [phone] Reason for Visit * Reason Onset Date Comments Results 01/05/2023 Encounter Details Date Type Department Care Team (Late st Contact Info) Description 01/05/2023 Telephone [facility] Rheumatology & Immunology - [address] [phone] Tee Narayanan MBBS [address] [place] [address], [address] [place] [address] Results Social History Tobacco Use Types Packs/Day Years [...] have serious difficulty h earing? No 08/15/2021 documented as of this encounter Miscellaneous Notes * Telephone Encounter - Tee Narayanan MBBS - 01/05/2023 4288 EDT Telephone call: S: - Unable to reach directly by phone. Voicemail message left. O: - (01/04/23) Labs: K 5.3 and Hb 13.7. ESR 18. CBC and CMP unremarkable. CRP wnl. Lyme IgM equivocal. RF and CCP negative. Hepatitis and quantiferon negative (01/04/23) XR C-spine: 1. No specific evidence of ankylosing spondylitis is detected. 2. Very early lower cervical spine degenerative disc and facet disease. ?? (01/04/23) XR T-spine: 1. No thoracic spine bony abnormality detected. No imaging evidence of thoracic ankylosing spondylitis is seen. Impression: - Awaiting lyme WB - Hepatitis and quantiferon negative (2022) - Borderline elevated ESR - Autoimmune serologies negative. - Spine radiographs identified mild lumbar spondylosis and early C-spine DDD without evidence of . documented in this encounter Plan of Treatment Upcoming Encounters Date Type Department Care Team (Late st Contact Info) Description 04/10/2024 10:[address] [facility] Rheumatology [address] [place] [address] Tee Narayanan MBBS [address] [place] [address], [address] [place] [phone] documented as of this encounter Visit Diagnoses Not on filedocumented in this encounter Care Teams Financial Services Professional Relationship Specialty Start Date End Date Mariia Burt MD [address] [place] [phone] PCP - General Family Medicine - Primary Care 08/25/22 documented as of this encounter
--- OUTSIDE RECORDS SUMMARY | 2024-01-07 09:07 | XMS_ITS | Encounter Summary ---
Author Organization [facility] Address [address] [place] [address] Care Team Providers Care Graphics Coordinator Name Role Phone Mariia Burt MD Primary Care Provider [phone] Reason for Visit * Reason Onset Date Comments Medication Management 06/15/2023 Humira rep lacement pens Encounter Details Date Type Department Care Team (Late st Contact Info) Description 06/15/2023 Telephone [facility] [place] [address] [place] [address] Tee Narayanan MBBS [address] [place] [address] [address] [place] [address] Medication Management (Humira replacement pens) Social History Tobacco Use Types Packs/Day Years [...] as of this encounter Progress Notes * Humble Sheikh [facility] - 07/16/[address] [facility] Telephone Encounter 07/16/23 Contact: Outgoing Spoke with: Other - Walter Zuniga at [facility] Reason: calling back to provide info requested Needed to know if they were okay to cancel the Case# [id number] request for replacement pens as patient got a new shipment from [facility]. Assessment & Plan: Case # in reference was closed and no replacements needed. No further action needed. Method of Communication: Telephonic Humble Sheikh PharmD (he/him) Ambulatory Pharmacist Clinician Rheumatology 07/16/2023 * Humble Sheikh RP - 07/02/2023 1251 EST Patient brought in 4 faulty humira pens. [facility] to confirm what is going on with them. [facility] dose to be administered in clinic today. [facility] did confirm all 4 pens had the white cylinder/safety jammed. Plan was to use the new pen delivered to office today. Upon opening the new pen, the white cylinderis also jammed. Proceeded with the dose anyway, and was able to successfully administer the dose. No evidence of medication spilling out of injection site and the contents were visibly all administered. Assuming that the white needle sheath does not need to move anymore. Called [facility] who recommended I talk to the product quality & medical info team: [phone]. Case #: [id number] for pens he received 06/08. Case #: [id number] for replacement pens and pens for today. Monitoring Analyst stated they will reach out to patient to get their end of the story and determine what needs to be done moving forward. No update to pen mechanics were made so the needle sheaths should not be jamming, but patient still able to successfully administer the medication. Humble Sheikh PharmEmmy (he/him) Ambulatory Pharmacist Clinician Rheumatology 07/02/2023 * Humble Sheikh [facility] - 06/28/[address] [facility] Telephone Encounter 06/28/23 Contact: Outgoing Spoke with: Patient and Pharmacy- KEMAL BISWAS Reason: setting up new delivery and injection training Spoke with patient and offered that he just refill the humira now and then have it [place] [facility] so that we can do an in person injection training with new pens and confirm what is going onwith the pens. Spoke with [facility] and set up delivery for Sunday with goal injection training for Sunday07/02/23. Assessment & Plan: Notify pss that patient needs injection training for sunday 07/02 at 1 pm. [facility] to examine the 4 faulty pens and provide injection training with new pens. Method of Communication: Telephonic and In-person Humble Sheikh PharmD (he/him) Ambulatory Pharmacist Clinician Rheumatology 06/28/2023 * Frank Mehta [facility] - 06/28/2023 0917 EST Patient called in with questions about his Humira replacement pens. Concerned that all the pens he was sent are jammed as well and may not inject correctly. Opened all 4 pens that arrived to check the tips. Unfortunately, none of them appeared to be working. These pens are likely not sterile due tobeing opened on Sunday. Patient would like to come in person for injection training and to troubleshoot pen operation. Will have [facility] call patient to arrange for training at [facility] [place]. Patient verbalized understanding of the plan. No additional questions. Frank Mehta PharmD Ambulatory Pharmacist Clinician - Rheumatology 06/28/2023 documented in this encounter Miscellaneous Notes * Telephone Encounter - Zina Nice Jo - 07/13/2023 1259 EST Walter from [employer] calling to speak with the person who prepared injection for Humira replacement. Can be reached at [phone] Option 1, and option 1 again. documented in this encounter Plan of Treatment Upcoming Encounters Date Type Department Care Team (Late st Contact Info) Description 04/10/2024 10:15 EST Office Visit [facility] Rheumatology [address] [place] [address] Tee Narayanan MBBS [address] [place] [address] [address] [place] [address] documented as of this encounter Visit Diagnoses Not on filedocumented in this encounter Care Teams Graphics Coordinator Relationship Specialty Start Date End Date Mariia Burt MD [address] [place] [phone] PCP - General Family Medicine - Primary Care 08/25/22 documented as of this encounter
--- OUTSIDE RECORDS SUMMARY | 2024-01-07 09:07 | XMS_ITS | Encounter Summary ---
Author Organization [facility] Address [address] [place] [address] Care Team Providers Care Stenotype Operator Name Role Phone Mariia Burt MD Primary Care Provider [phone] Reason for Visit * Reason Onset Date Comments Medication Management 05/25/2023 Encounter Details Date Type Department Care Team (Late st Contact Info) Description 05/25/2023 Telephone [facility] Rheumatology [address] [place] [address] Tee Narayanan MBBS [address] [place] [address] [address] [place] [address] Medication Management Social History Tobacco Use Types Packs/Day Years [...] No 04/11/2023 documented as of this encounter Ordered Prescriptions Prescription Sig Dispensed Refills Start Date End Da te adalimumab (HUMIRA,CF, PEN) 40 mg/0.4 mL pen Inject 0.4 mL into the skin every 14 days. 2 Each 5 05/25/2023 11/22/2023 documented in this encounter Miscellaneous Notes * Telephone Encounter - Gricelda Rivera, RN - 05/25/2023 1358 EST Reviewed previous notes and hmira has been approved. Sent the Rx to [facility] Special[facility] and notified patient via VM that this was done. * Telephone Encounter - Nasreen Glover - 05/25/2023 1320 EST Pt is wanting to move forward with the Humara/biologic has been approved. Please start before end of year if at all possible. Chirag Moraes. Let Pt know if able to get prescription done prior to06/03/23 documented in this encounter Plan of Treatment Upcoming Encounters Date Type Department Care Team (Late st Contact Info) Description 04/10/2024 10:15 EST Office Visit [facility] Rheumatology [address] [place] [address] Tee Narayanan MBBS [address] [place] [address], [facility] [address] [place] [phone] documented as of this encounter Visit Diagnoses Not on filedocumented in this encounter Care Teams Stenotype Operator Relationship Specialty Start Date End Date Mariia Burt MD [address] [place] [phone] PCP - General Family Medicine - Primary Care 08/25/22 documented as of this encounter
--- OUTSIDE RECORDS SUMMARY | 2024-01-07 09:07 | XMS_ITS | Encounter Summary ---
Author Organization [facility] Address [address] [place] [address] Care Team Providers Care Medical Records Coder Name Role Phone Mariia Burt MD Primary Care Provider [phone] Encounter Details Date Type Department Care Team (Late st Contact Info) Description 02/20/2023 Documentation Visit [facility] Gastroenterology [address] [place] [phone] Ju Negron MD [address] [place] [phone] Social History Tobacco Use Types Packs/Day [...] No 08/15/2021 documented as of this encounter Progress Notes * Ju Negron MD - 02/20/2023 1158 EDT Patient no showed to clinic this morning documented in this encounter Plan of Treatment Upcoming Encounters Date Type Department Care Team (Late st Contact Info) Description 04/10/2024 10:15 EST Office Visit [facility] Rheumatology [address] [place], [place] [phone] Tee Narayanan MBBS 111 [facility], [address] [place] [address] documented as of this encounter Visit Diagnoses Not on filedocumented in this encounter Care Teams Medical Records Coder Relationship Specialty Start Date End Date Mariia Burt MD [address] [place] [phone] PCP - General Family Medicine - Primary Care 08/25/22 documented as of this encounter
--- OUTSIDE RECORDS SUMMARY | 2024-01-07 09:07 | XMS_ITS | Encounter Summary ---
Author Organization [facility] Address [address] [place] [address] Care Team Providers Care Cath Lab Technologist Name Role Phone Mariia Burt MD Primary Care Provider [phone] Encounter Details Date Type Department Care Team (Late st Contact Info) Description 02/20/2023 Documentation Visit Formerly [facility], [facility] Gastroenterology [address] [place] [address] Ju Negron MD [address] [address] Social History Tobacco Use Types Packs/Day [...] No 08/15/2021 documented as of this encounter Plan of Treatment Upcoming Encounters Date Type Department Care Team (Late st Contact Info) Description 04/10/2024 10:15 EST Office Visit [facility] Rheumatology [address] [place] [address] Tee Narayanan MBBS 111 [facility] 5 [place] [address] documented as of this encounter Visit Diagnoses Not on filedocumented in this encounter Care Teams Cath Lab Technologist Relationship Specialty Start Date End Date Mariia Burt MD [address] [place] [phone] PCP - General Family Medicine - Primary Care 08/25/22 documented as of this encounter
--- OUTSIDE RECORDS SUMMARY | 2024-01-07 09:07 | XMS_ITS | Encounter Summary ---
Author Organization [facility] Address [address] [place] [address] Care Team Providers Care Health Informatics Instructor Name Role Phone Mariia Burt MD Primary Care Provider [phone] Encounter Details Date Type Department Care Team (Latest Contact Info) Description 07/23/2023 Specialty Pharmacy [facility] [address] [place], [place] [id number] Humble Sheikh [facility] Refill Coordination Outreach for Rheumatology, Initial Clinical Follow-up (by 6 weeks) for Rheumatology Social History Tobacco Use Types [...] Info) Description 04/10/2024 10:15 EST Office Visit [facility] - [facility] Rheumatology [address] [place], [place] [address] Tee Narayanan MBBS 111 [facility], Level [address] [place] [phone] documented as of this encounter Visit Diagnoses Not on filedocumented in this encounter Care Teams Health Informatics Instructor Relationship Specialty Start Date End Date Mariia Burt MD [address] [place] [phone] PCP - General Family Medicine - Primary Care 08/25/22 documented as of this encounter
--- OUTSIDE RECORDS SUMMARY | 2024-01-07 09:07 | XMS_ITS | Encounter Summary ---
Author Organization [facility] Address [address] [place] [address] Care Team Providers Care Engineering Coordinator Name Role Phone Mariia Burt MD Primary Care Provider [phone] Encounter Details Date Type Department Care Team (Latest Contact Info) Description 08/20/2023 Specialty Pharmacy [facility] 1 [place], [place] [address] Humble Sheikh [facility] Refill Coordination Outreach for Rheumatology Social [...] Info) Description 04/10/2024 10:15 EST Office Visit [facility] Rheumatology [address] [place] [address] Tee Narayanan MBBS [address] [facility], Level [address] [place] [phone] documented as of this encounter Visit Diagnoses Not on filedocumented in this encounter Care Teams Engineering Coordinator Relationship Specialty Start Date End Date Mariia Burt MD [address] [place] [phone] PCP - General Family Medicine - Primary Care 08/25/22 documented as of this encounter
--- OUTSIDE RECORDS SUMMARY | 2024-01-07 09:07 | XMS_ITS | Encounter Summary ---
Author Organization [facility] Address [address] [place] [address] Care Team Providers Care Orthotic And Prosthetic Technician Name Role Phone Mariia Burt MD Primary Care Provider [phone] Encounter Details Date Type Department Care Team (Latest Contact Info) Description 10/11/[address] [facility] [address] [place], [place] [id number] Humble Sheikh [facility] Clinical Follow-up (2x annually) for Rheumatology Social History Tobacco Use Types [...] as of this encounter Progress Notes * Genevieve De León [facility] - 10/11/2023 1212 EDT Specialty medication: Marc I reviewed this patient's chart today. I conduct periodic chart reviews to identify any adherence issues and clinical response to specialty medications. The patient is using this medication appropriately and does not require any pharmacist intervention at this time. Genveieve De León PharmD Ambulatory Clinical Pharmacist 10/11/2023 documented in this encounter Plan of Treatment Upcoming Encounters Date Type Department Care Team (Late st Contact Info) Description 04/10/2024 10:15 EST Office Visit [facility] Rheumatology [address] [place] [address] Tee Narayanan MBBS 111 [facility], [facility] 5 [place] [address] documented as of this encounter Visit Diagnoses Not on filedocumented in this encounter Care Teams Orthotic And Prosthetic Technician Relationship Specialty Start Date End Date Mariia Burt MD [address] [place] [phone] PCP - General Family Medicine - Primary Care 08/25/22 documented as of this encounter
--- OUTSIDE RECORDS SUMMARY | 2024-01-07 09:07 | XMS_ITS | Encounter Summary ---
Author Organization [facility] Address [address] [place] [address] Care Team Providers Care Director Of Primary Name Role Phone Mariia Burt MD Primary Care Provider [phone] Reason for Visit * Reason Onset Date Comments Medications Refill 11/21/2023 Encounter Details Date Type Department Care Team (Late st Contact Info) Description 11/21/2023 Telephone [facility] Rheumatology & Immunology - [address] [address] Tee Narayanan MBBS [address] [place] [address], [address] [place] [address] Medications Refill Social History Tobacco Use Types Packs/Day Years [...] te adalimumab (HUMIRA,CF, PEN) 40 mg/0.4 mL penIndications:Undifferenti ated spondyloarthropathy,Bilater al sacroiliitis (HCC-CMS) Inject 0.4 mL into the skin every 14 days. 2 Each 5 11/22/2023 documented in this encounter Miscellaneous Notes * Telephone Encounter - Lydia Anderson - 11/21/2023 1415 EDT Medication Refill Request Medication: humira Patient needs medication by: 11/30 Scheduled outreach date: 11/21 Pharmacy: [facility] ([facility]) [address] Next appt: 04/10/24 Refill sent to [facility] per protocol. Josefina Pope, PharmD, [facility] Pharmacist Ambulatory Clinician 11/22/2023 documented in this encounter Plan of Treatment Upcoming Encounters Date Type Department Care Team (Late st Contact Info) Description 04/10/2024 10:[address] [facility] Rheumatology [address] [place] [address] Tee Narayanan MBBS [address] [place] [address], [facility] 5 [place] [phone] documented as of this encounter Visit Diagnoses Diagnosis Undifferentiated spondyloarthropathy- Primary Bilateral sacroiliitis (HCC-CMS) documented in this encounter Discontinued Medications Medication Sig Discontinue Reason Start Date End Da te adalimumab (HUMIRA,CF, PEN) 40 mg/0.4 mL pen Inject 0.4 mL into the skin every 14 days. Reorder 05/25/2023 11/22/2023 documented as of this encounter Care Teams Director Of Primary Relationship Specialty Start Date End Date Mariia Burt MD [address] [place] [address] PCP - General Family Medicine - Primary Care 08/25/22 documented as of this encounter
--- OUTSIDE RECORDS SUMMARY | 2024-01-07 09:07 | XMS_ITS ---
Author Organization Unknown Address [address] [place] [phone] Phone Care Team Providers Care Lumber Scaler Name Role Phone ALEA Ely Attending Unavailable [...] Code Code Sys tem Obstructive sleep apnea (adult) (pediatric) 04/19/2023 SNOMED-CT Personal Care Team Section Performer Name Performer Role Active Date Inactive Da te
--- OUTSIDE RECORDS SUMMARY | 2024-01-07 09:07 | XMS_ITS | Encounter Summary ---
Author Organization [facility] Address [address] [place] [address] Care Team Providers Care Lens Gauger Name Role Phone Mariia Burt MD Primary Care Provider [phone] Encounter Details Date Type Department Care Team (Latest Contact Info) Description 10/22/2023 Specialty Pharmacy [facility] Specialty [facility] [address] [place], [place] [address] Humble Sheikh [facility] Refill Coordination Outreach for Rheumatology Social History [...] Info) Description 04/10/2024 10:15 EST Office Visit [facility] - [facility] Rheumatology [address] [place] [address] Tee Narayanan MBBS 111 [facility], [address] [place] [phone] documented as of this encounter Visit Diagnoses Not on filedocumented in this encounter Care Teams Lens Gauger Relationship Specialty Start Date End Date Mariia Burt MD [address] [place] [phone] PCP - General Family Medicine - Primary Care 08/25/22 documented as of this encounter
--- OUTSIDE RECORDS SUMMARY | 2024-01-07 09:07 | XMS_ITS | Encounter Summary ---
Author Organization [facility] Address [address] [place] [address] Care Team Providers Care Banbury Machine Operator Name Role Phone Mariia Burt MD Primary Care Provider [phone] Reason for Visit * Reason Comments Tinnitus Symptoms started a c ouple years ago. Gradual onset over a few months and has stayed the same . Constant and moderate. Noise exposure over the years. Same on both sides. No head injury . High pitch sound grasshoppers. Encounter Details Date Type Department Care Team (Latest Contact Info) Description 02/21/2023 14:00 EDT Office Visit [facility] ENT [address] [place] [address] Elvin Wiley MD 130 [facility] [address] [address] Sensorineural hearing loss (SNHL) of both ears (Primary Dx) Social History Tobacco Use Types Packs/Day Years [...] Sign Reading Time Taken Comments Blood Pressure - - Pulse - - Temperature 36.2 ??C (97.2 ??F) 02/21/2023 1405 EDT Respiratory Rate - - Oxygen Saturation - - Inhaled Oxygen Concentration - - Weight 77.1 kg (170 lb) 02/21/2023 1405 EDT Height 180.3 cm (5' 11) 02/21/2023 1405 EDT Body Mass Index 23.71 02/21/2023 1405 EDT documented in this encounter Functional Status Functional Status Response Date of Assess ment Are you deaf or do you have serious difficulty h earing? No 08/15/2021 documented as of this encounter Progress Notes * Elvin Wiley MD - 02/21/2023 1400 EDT CHIEF COMPLAINT: Tinnitus HPI: 48-year-old male with a 2-year history of bilateral high-pitched ringing tinnitus. His symptoms are moderate severity, constant, worse in quiet situations. No associated hearing loss pain drainage vertigo or other ear symptoms. He wears hearing protection. No history of head injury or meningitis. No family history of hereditary hearing loss. No ototoxic exposure. He does have a history of increased stress bruxism and excess caffeine use. He is interested in trying a neuromodulating device Lanire. Past Medical History: Diagnosis Date ??? Dyslipidemia ??? Environmental allergies ??? Low back pain History reviewed. No pertinent surgical history. No Known Allergies Outpatient Medications Marked as Taking for the 02/21/23 encounter (Office Visit) with Elvin Wiley MD Medication Sig Dispense Refill ??? cetirizine (ZYRTEC) 10 mg tablet Take 1 Tablet by mouth daily. ??? meloxicam (MOBIC) 15 mg tablet Take 1 Tablet by mouth daily. ??? MULTIVITAMIN ORAL Take by mouth. ??? psyllium husk (FIBER, PSYLLIUM HUSK,) 0.4 gram capsule Take by mouth. Family History Problem Relation Age of Onset ??? Heart Disease Father ??? Diabetes Maternal Grandfather Social History Socioeconomic History ??? Marital status: Spouse name: Not on file ??? Number of children: Not on file ??? Years of education: Not on file ??? Highest education level: Not on file Occupational History ??? Not on file Tobacco Use ??? Smoking status: Never ??? Smokeless tobacco: Never Substance and Sexual Activity ??? Alcohol use: Yes Alcohol/week: 1.0 standard drink of alcohol Types: 1 Cans of beer per week ??? Drug use: Not Currently ??? Sexual activity: Not on file Other Topics Concern ??? Not on file Social History Narrative ??? Not on file Social Determinants of Health Financial Resource Strain: Not on file Food Insecurity: Not on file Transportation Needs: Not on file Physical Activity: Not on file Stress: Not on file Social Connections: Not on file Housing Stability: Not on file REVIEW OF SYSTEMS: Significant back pain joint pain congestion hearing loss tinnitus otherwise negative for complete review of all systems PHYSICAL EXAM: Temp 36.2 ??C (97.2 ??F) Ht 180.3 cm (71) Wt 77.1 kg (170 lb) BMI 23.71 kg/m?? General: Well-developed well-nourished alert oriented cooperative adult male no acute distress. Normal voice. The face is normal without lesions. Facial strength is symmetric. Eye exam is normal. Ears: External ears are normal canals are clear the tympanic membranes are normal. There is small exostosis bilaterally. The audiogram from October 2021 was read and reviewed and this shows a mild bilateral high-frequency sensorineural hearing loss with SRT's of 10 dB bilaterally good word discrimination and normal impedance. Otoacoustic emissions were also present. Nose: Nasal dorsum is midline the airways patent. Oral cavity and posterior pharynx is clear. There is TMJ tenderness to palpation bilatera lly. IMPRESSION: Bilateral tinnitus possibly exacerbated by stress bruxism and excess caffeine use. PLAN: Tinnitus instruction material was given to the patient discussed in detail. He will try the neuromodulation device and get back to us on its success or failure. Follow-up with ENT as needed. documented in this encounter Plan of Treatment Upcoming Encounters Date Type Department Care Team (Late st Contact Info) Description 04/10/2024 10:15 EST Office Visit [facility] Rheumatology [address] [place] [address] Tee Narayanan MBBS [address] [place] [address] [address] [place] [address] documented as of this encounter Visit Diagnoses Diagnosis Sensorineural hearing loss (SNHL) of both ears- Primary documented in this encounter Discontinued Medications Medication Sig Discontinue Reason Start Date End Da te dicyclomine (BENTYL) 20 mg tablet Take 1 Tablet by mouth 3 times daily as needed. 08/23/2022 02/21/2023 documented as of this encounter Care Teams Banbury Machine Operator Relationship Specialty Start Date End Date Mariia Burt MD [address] [place] [address] PCP - General Family Medicine - Primary Care 08/25/22 documented as of this encounter
--- OUTSIDE RECORDS SUMMARY | 2024-01-07 09:07 | XMS_ITS | Encounter Summary ---
Author Organization [facility] Address [address] [place] [address] Care Team Providers Care Wrapper Off Name Role Phone Mariia Butr MD Primary Care Provider [phone] Encounter Details Date Type Department Care Team (Late st Contact Info) Description 10/15/2023 12:00 EDT Phlebotomy Only [facility] - Outpatient Phlebotomy Drawing [address] [place] [address] Lab, [facility] Op Phlebotomy Sacroiliitis ([facility]); Spondyloarthropathy Social History Tobacco Use Types Packs/Day Years [...] as of this encounter Miscellaneous Notes * Result Encounter Note - Tee Nraayanan MBBS - 10/15/2023 1200 EDT Results quicknote: Lab work unremarkable. documented in this encounter Plan of Treatment Upcoming Encounters Date Type Department Care Team (Late st Contact Info) Description 04/10/2024 10:15 EST Office Visit [facility] Rheumatology [address] [place] [address] Tee Narayanan MBBS 111 [facility], Level [address] [place] [address] documented as of this encounter Procedures Procedure Name Priority Date/Time Associated Diagnosis Comments COMPLETE BLOOD COUNT AND DIFFERENTIAL Routine 10/15/2023 12:01 EDT Sacroiliitis ([facility]) Spondyloarthropath y COMPREHENSIVE METABOLIC PANEL (CMP) Routine 10/15/2023 12:01 EDT Sacroiliitis ([facility]) Spondyloarthropath y documented in this encounter Results * (ABNORMAL) COMPREHENSIVE METABOLIC PANEL (CMP) (10/15/2023 12:01 EDT) Sodium 139 136 - 145 mmol/L 10/15/2023 12:56 [facility] Potassium 4.4 3.5 - 5.0 mmol/L 10/15/2023 12:56 [facility] Chloride 105 96 - 110 mmol/L 10/15/2023 12:56 [facility] CO2 Total 30 22 - 32 mmol/L 10/15/2023 12:56 [facility] Glucose 87 70 - 99 mg/dl 10/15/2023 12:56 [facility] BUN 13 10 - 26 mg/dL 10/15/2023 12:56 [facility] Creatinine 0.79 0.66 - 1.25 mg/dL 10/15/2023 12:56 [facility] eGFR 109 >60 mL/min/1.7 3m2 10/15/2023 12:56 [facility] Total Protein 7.3 6.3 - 8.2 g/dL 10/15/2023 12:56 [facility] Albumin 4.2 3.4 - 4.9 g/dL 10/15/2023 12:56 [facility] Alkaline Phosphatase 71 38 - 126 U/L 10/15/2023 12:56 [facility] AST 32 15 - 46 U/L 10/15/2023 12:56 [facility] ALT 44 <50 U/L 10/15/2023 12:56 [facility] Bilirubin, Total <0.5 <1.4 mg/dL 10/15/19 12:56 [facility] Calcium 9.4 8.5 - 10.5 mg/dL 10/15/2023 12:56 [facility] Albumin/Globulin Ratio 1.4 1.0 - 2.5 10/15/2023 12:56 [facility] Anion Gap 4(L) 5 - 14 mmol/L 10/15/2023 12:56 [facility] Blood VENOUS BLOOD / Unknown Venipuncture / Unknown 10/15/2023 12:01 EDT 10/15/2023 12:27 EDT Tee MASON CHEMISTRY & BLOOD GA S ORDERABLES [facility] [address] [place] [address] * (ABNORMAL) COMPLETE BLOOD COUNT AND DIFFERENTIAL (10/15/2023 12:01 EDT) WBC 7.21 4.00 - 10.40 K/cmm 10/15/2023 12:17 T [facility] RBC 4.51 4.36 - 5.78 M/cmm 10/15/2023 12:17 [facility] Hemoglobin 13.1(L) 13.8 - 17.3 g/dL 10/15/2023 12:17 T [facility] HCT 38.9(L) 39.5 - 50.2 % 10/15/2023 12:17 [facility] MCV 86 81 - 95 fL 10/15/2023 12:17 [facility] MCH 29.0 27.6 - 33.0 pg 10/15/2023 12:17 [facility] MCHC 33.7 32.8 - 36.4 g/dL 10/15/2023 12:17 [facility] RDW-CV 12.6 <14.2 % 10/15/2023 12:17 [facility] RDW-SD 39.6 <46.0 fl 10/15/2023 12:17 [facility] PLT 274 141 - 377 K/cmm 10/15/2023 12:17 [facility] MPV 9.2(L) 9.5 - 12.7 fL 10/15/2023 12:17 [facility] % Neutrophils 54.3 % 10/15/2023 12:17 [facility] % Lymphocytes 35.2 % 10/15/2023 12:17 [facility] % Monocytes 8.0 % 10/15/2023 12:17 [facility] % Eosinophils 1.4 % 10/15/2023 12:17 [facility] % Basophils 0.8 % 10/15/2023 12:17 [facility] % Immature Grans 0.3 % 10/15/19 12:17 [facility] Absolute Neutrophils 3.91 2.20 - 8.85 K/cmm 10/15/2023 12:17 [facility] Absolute Lymphocytes 2.54 1.09 - 3.30 K/cmm 10/15/2023 12:17 [facility] Absolute Monocytes 0.58 0.10 - 0.80 K/cmm 10/15/2023 12:17 [facility] Absolute Eosinophils 0.10 0.03 - 0.61 K/cmm 10/15/2023 12:17 [facility] ABS Basophils 0.06 0.01 - 0.11 K/cmm 10/15/2023 12:17 EDT [facility] Absolute Immature Grans 0.02 0.00 - 0.06 K/cmm 10/15/2023 12:17 EDT [facility] Type of Differential: Auto 10/15/2023 12:17 EDT [facility] Blood VENOUS BLOOD / Unknown Venipuncture / Unknown 10/15/2023 12:01 EDT 10/15/2023 12:12 EDT Tee MASON PACKAGES & DNA PROBE ORDERABLES [facility] [address] [place] [id number] documented in this encounter Visit Diagnoses Diagnosis Sacroiliitis ([facility]) Sacroiliitis, not elsewhere classified Spondyloarthropathy Spondylosis of unspecified site without mention of myelopathy documented in this encounter Care Teams Wrapper Off Relationship Specialty Start Date End Date Mariia Burt MD [address] [place] [phone] PCP - General Family Medicine - Primary Care 08/25/22 documented as of this encounter
--- OUTSIDE RECORDS SUMMARY | 2024-01-07 09:07 | XMS_ITS | Encounter Summary ---
Author Organization [facility] Address [address] [place] [address] Care Team Providers Care Database Operator Name Role Phone Mariia Burt MD Primary Care Provider [phone] Encounter Details Date Type Department Care Team (Late st Contact Info) Description 04/11/2023 14:40 EST Phlebotomy Only [facility] - Outpatient Phlebotomy Drawing [address] [place] [address] Lab, [facility] [place] Sacroiliitis ([facility]-CMS); Spondyloarthropathy Social History Tobacco Use Types Packs/Day [...] Notes * Result Encounter Note - Tee Narayanan MBBS - 04/11/2023 1440 EST Results Quicknote: (04/11/23): Labs: Hb 12.7 and ABS neutrophils 1.26. CBC and CMP otherwise unremarkable. Continue as per 04/11/23 documented in this encounter Plan of Treatment Upcoming Encounters Date Type Department Care Team (Late st Contact Info) Description 04/10/2024 10:15 EST Office Visit [facility] Rheumatology [address] [place] [address] Tee Narayanan MBBS [address] [facility] [address] [place] [address] documented as of this encounter Procedures Procedure Name Priority Date/Time Associated Diagnosis Comments COMPLETE BLOOD COUNT AND DIFFERENTIAL Routine 04/11/2023 14:46 EST Sacroiliitis (HCC-CMS) Spondyloarthropath y COMPREHENSIVE METABOLIC PANEL (CMP) Routine 04/11/2023 14:46 EST Sacroiliitis (HCC-CMS) Spondyloarthropath y documented in this encounter Results * COMPREHENSIVE METABOLIC PANEL (CMP) (04/11/2023 14:46 EST) Sodium 137 136 - 145 mmol/L 04/11/2023 16:02 [facility] Potassium 5.0 3.5 - 5.0 mmol/L 04/11/2023 16:02 [facility] Chloride 103 96 - 110 mmol/L 04/11/2023 16:02 [facility] CO2 Total 27 22 - 32 mmol/L 04/11/2023 16:02 [facility] Glucose 93 70 - 99 mg/dl 04/11/2023 16:02 [facility] BUN 15 10 - 26 mg/dL 04/11/2023 16:02 [facility] Creatinine 0.88 0.66 - 1.25 mg/dL 04/11/2023 16:02 [facility] eGFR 105 >60 mL/min/1.7 3m2 04/11/2023 16:02 [facility] Total Protein 7.6 6.3 - 8.2 g/dL 04/11/2023 16:02 [facility] Albumin 4.3 3.4 - 4.9 g/dL 04/11/2023 16:02 [facility] Alkaline Phosphatase 51 38 - 126 U/L 04/11/2023 16:02 [facility] AST 28 15 - 46 U/L 04/11/2023 16:02 [facility] ALT 19 <50 U/L 04/11/2023 16:02 [facility] Bilirubin, Total 0.5 <1.4 mg/dL 04/11/20 16:02 [facility] Calcium 9.3 8.5 - 10.5 mg/dL 04/11/2023 16:02 [facility] Albumin/Globulin Ratio 1.3 1.0 - 2.5 g/dL 04/11/2023 16:02 [facility] Anion Gap 7 5 - 14 mmol/L 04/11/2023 16:02 [facility] Blood VENOUS BLOOD / Unknown Venipuncture / Unknown 04/11/2023 14:46 EST 04/11/2023 15:30 EST Tee MASON CHEMISTRY & BLOOD GA S ORDERABLES Performing Organization Address City/State/[facility] Co de Phone Number [facility] [address] [place] [address] * (ABNORMAL) COMPLETE BLOOD COUNT AND DIFFERENTIAL (04/11/2023 14:46 EST) WBC 4.25 4.00 - 10.40 K/cmm 04/11/2023 15:54 [facility] RBC 4.45 4.36 - 5.78 M/cmm 04/11/2023 15:54 [facility] Hemoglobin 12.7(L) 13.8 - 17.3 g/dL 04/11/2023 15:54 [facility] HCT 37.4(L) 39.5 - 50.2 % 04/11/2023 15:54 [facility] MCV 84 81 - 95 fL 04/11/2023 15:54 [facility] MCH 28.5 27.6 - 33.0 pg 04/11/2023 15:54 [facility] MCHC 34.0 32.8 - 36.4 g/dL 04/11/2023 15:54 [facility] RDW-CV 12.4 <14.2 % 04/11/2023 15:54 [facility] RDW-SD 37.4 <46.0 fl 04/11/2023 15:54 [facility] PLT 282 141 - 377 K/cmm 04/11/2023 15:54 [facility] MPV 9.5 9.5 - 12.7 fL 04/11/2023 15:54 [facility] % Neutrophils 29.8 % 04/11/2023 15:54 [facility] % Lymphocytes 57.6 % 04/11/2023 15:54 [facility] % Monocytes 10.1 % 04/11/2023 15:54 [facility] % Eosinophils 1.6 % 04/11/2023 15:54 [facility] % Basophils 0.9 % 04/11/2023 15:54 [facility] % Immature Grans 0.0 % 04/11/20 15:54 [facility] Absolute Neutrophils 1.26(L) 2.20 - 8.85 K/cmm 04/11/2023 15:54 [facility] Absolute Lymphocytes 2.45 1.09 - 3.30 K/cmm 04/11/2023 15:54 [facility] Absolute Monocytes 0.43 0.10 - 0.80 K/cmm 04/11/2023 15:54 [facility] Absolute Eosinophils 0.07 0.03 - 0.61 K/cmm 04/11/2023 15:54 [facility] ABS Basophils 0.04 0.01 - 0.11 K/cmm 04/11/2023 15:54 [facility] Absolute Immature Grans 0.00 0.00 - 0.06 K/cmm 04/11/2023 15:54 EST [facility] Type of Differential: Auto 04/11/2023 15:54 EST [facility] Blood VENOUS BLOOD / Unknown Venipuncture / Unknown 04/11/2023 14:46 EST 04/11/2023 15:51 EST Tee MASON PACKAGES & DNA PROBE ORDERABLES [facility] [address] [place] [address] documented in this encounter Visit Diagnoses Diagnosis Sacroiliitis ([facility]) Sacroiliitis, not elsewhere classified Spondyloarthropathy Spondylosis of unspecified site without mention of myelopathy documented in this encounter Care Teams Database Operator Relationship Specialty Start Date End Date Mariia Burt MD [address] [place] [phone] PCP - General Family Medicine - Primary Care 08/25/22 documented as of this encounter
--- OUTSIDE RECORDS SUMMARY | 2024-01-07 09:07 | XMS_ITS | Encounter Summary ---
Author Organization [facility] Address [address] [place] [address] Care Team Providers Care Rn Assessment Name Role Phone Mariia Burt MD Primary Care Provider [phone] Encounter Details Date Type Department Care Team (Latest Contact Info) Description 05/25/2023 Specialty Pharmacy [facility] [address] [place], [place] [address] Humble Sheikh RPH Set up initial fill for Rheumatology, Patient Education for Rheumatology, Prospective Review for Rheumatology, Started Benefits Review: CONTACT INSURANCE for Rheumatology Social History Tobacco Use Types [...] this encounter Progress Notes * Humble Sheikh RPH - 05/25/2023 1621 EST [facility] Medication Therapy Initiation Note Jayy Christianson is a 48 y.o. male being started on Humira for Spondyloarthropathy. Medication History:NSAIDS Therapy: Humira 40 mg/0.4 ml pen into the skin every 14 days Planned Start Date: 06/08/22 Pharmacy: [facility] Provider: Oracio Method of Education: Televideo I performed a complete review of the patient???s medical record, including medications, immunizations, and allergies. Prior to Admission medications Medication Sig Start Date End Date Taking? Authorizing Provider adalimumab (HUMIRA,CF, PEN) 40 mg/0.4 mL pen Inject 0.4 mL into the skin every 14 days. 05/25/23 Tee Narayanan MBBS cetirizine (ZYRTEC) 10 mg tablet Take 1 Tablet by mouth daily. Provider, MD Fuentes meloxicam (MOBIC) 15 mg tablet Take 1 Tablet by mouth daily. Provider, MD Fuentes MULTIVITAMIN ORAL Take by mouth. Patient not taking: Reported on 04/11/2023 ProviderFuentes MD psyllium husk (FIBER, PSYLLIUM HUSK,) 0.4 gram capsule Take by mouth. Provider, MD Fuentes Last Office Visit: 04/11/23 Arthralgia improving with meloxicam and no side effects Denies prolonged morning stiffness. Tolerating meloxicam daily. Notes left > right reduced visual acuity. On examination increasing Guzman's 9cm and Occiput test 0cm. Labs reviewed (01/2023). RAPID3 2. Overall feel SpA well controlled. Goal to switch to humira to better slow disease progressionand prevent RAY with superintendent terminal NSAID use Pertinent Labs: 01/24/23 Quantiferon TB:negative HBcAb: negative HBsAg:negative No Known Allergies 04/11/2023 14:02 RAPID3 SCORES AND INTERPRETATION Functional Status 0 Pain Tolerance 1 Global Estimate 1 RAPID3 2 Interpretation Near Remission Assessment & Plan Indication, effectiveness, safety, and convenience of specialty medications were reviewed today. I provided counseling and injection training for Humira for spondyloarthropathy. Counseled the patient on the following: -Therapeutic rationale / Goals of therapy discussed -Onset of action 3 months -Dosage and administration discussed -Safe handling, storage, and disposal -Therapy contraindications discussed -Possible adverse effects and management -Possible drug and prescription drug interactions -Adherence and missed doses discussed -Adherence tools reviewed: calendar phone reminders Recommended immunizations: covid, flu, pcv20, shingrix Patient questions/concerns: patient had 2 jammed pens that would not fire Outcomes of education: [facility] Potential barriers to therapy: faulty pens delayed intiation. Provided number to [facility]. Follow up: - Phone call: 6 weeks - Follow-up Labs: before next appt - Clinic Appointment: 08/01/23 Humble Sheikh PharmD (he/him) Ambulatory Pharmacist Clinician Rheumatology 06/01/2023 * Humble Sheikh [facility] - 05/25/2023 1621 EST [facility] Telephone Encounter 06/12/23 Contact: Outgoing Spoke with: Patient Reason: did he get the humira replacement pens? Assessment & Plan: LM - call back if there are any difficulties getting the pens or if he had any difficulty admininstering the dose Method of Communication: Telephonic Humble Sheikh PharmD (he/him) Ambulatory Pharmacist Clinician Rheumatology 06/12/2023 documented in this encounter Plan of Treatment Upcoming Encounters Date Type Department Care Team (Late st Contact Info) Description 04/10/2024 10:15 EST Office Visit [facility] Rheumatology [address] [place] [address] Tee Narayanan MBBS [address] [place] [address], [facility] [address] [place] [address] documented as of this encounter Visit Diagnoses Not on filedocumented in this encounter Care Teams Rn Assessment Relationship Specialty Start Date End Date Mariia Burt MD [address] [place] [phone] PCP - General Family Medicine - Primary Care 08/25/22 documented as of this encounter
--- OUTSIDE RECORDS SUMMARY | 2024-01-07 09:07 | XMS_ITS | Encounter Summary ---
Author Organization [facility] Address [address] [place] [address] Care Team Providers Care Criminalist Technician Name Role Phone Mariia Burt MD Primary Care Provider [phone] Reason for Visit * Reason Comments Follow-up Encounter Details Date Type Department Care Team (Late st Contact Info) Description 10/09/2023 15:45 EDT Office Visit [facility] [address] [place] [address] Tee Narayanan MBBS [address] [place] [address] [address] [place] [address] Ankylosing spondylitis of multiple sites in spine (HCC-CMS) (Primary Dx); Sacroiliitis (HCC-CMS); Spondyloarthropathy; High risk medication use; Encounter for long-term (current) use of medications; Drug-induced immunodeficiency (HCC-CMS) Social History Tobacco Use Types Packs/Day [...] Body Mass Index 25.52 10/09/2023 1535 EDT documented in this encounter Functional Status [...] as of this encounter Progress Notes * Tee Narayanan MBBS - 10/09/2023 1545 EDT Images from the original note were not included. [facility] Follow-up Visit Date of Service: 10/09/2023 Patient ID Jayy Christianson Chief Compliant: Chief Complaint Patient presents with Follow-up Pertinent Rheumatologic history and problem list: > PC: SpA () > Workup: HLA-B27 positive and ESR 18 [ULN 15]. RF and CCP negative. Sacroiliitis on MRI. > Management: NSAIDs. Adalimumab (05/2023 - ...) Subjective / HPI: Jayy Christianson is an 48-year-old gentleman with a background of ankylosing spondylitis and tinnitus who presented to [facility] clinic for a follow up visit. Mr. Christianson presented to [facility] rheumatology 01/2023 with a 7 - 8 [...] was diagnosed with SpA (ankylosing spondylitis). Patient initially managed with home exercises, PT and NSAIDs. Started on adalimumab 04/2023. Last seen 04/2023 Interval history: - (04/2023) Ophthalmology review On assessment today: - Reports significant improving arthralgia involving neck, lower back, hips, knees and ankles in response to meloxicam / adalimumab. - Denies prolonged morning stiffness - Denies recent swollen, erythematous or warm joints. - Denies eye pain or redness. - Denies psoriasis, dactylitis or enthesitis. - Feels as though adalimumab has reduced regular meloxicam use. Review of Systems: A complete 10 point ROS was performed and pertinent positive and negative findings listed in HPI, otherwise negative. Medications and allergies reviewed Problem list reviewed Past medical history and Past surgical history reviewed Objective: Physical Exam BP 122/70 (BP Cuff Location: Right arm, BP Patient Position: Sitting, BP Cuff Sizes: Adult, regular) Pulse 69 Temp 36.2 ??C (97.2 ??F) (Temporal) Resp 16 Ht 180.3 cm (71) Wt 83 kg (183 lb) SpO2 95% BMI 25.52 kg/m?? General: No acute distress. Alert, fully oriented. [...] joint bilaterally. Normal range of movement. Guzman's expansion 7cm Occiput test 0cm Investigations: I have independently reviewed labs / imaging Labs: - Reviewed Imaging: - (08/25/22) XR right hip: 1. No right hip osseous abnormality is detected. - (08/25/22) XR lumbar spine: 1. Mild lumbar spondylosis. 2. No significant spondylolisthesis. - (10/12/22) MR SI joints: - (01/04/23) XR C-spine: 1. No specific evidence of ankylosing spondylitis is detected. 2. Very early lower cervical spine degenerative disc and facet disease. - (01/04/23) XR T-spine: 1. No thoracic spine bony abnormality detected. No imaging evidence of thoracic ankylosing spondylitis is seen. Questionnaires: 04/11/2023 14:02 06/08/2023 15:08 10/06/2023 7:58 RAPID3 SCORES AND INTERPRETATION Functional Status 0 0 0 Pain Tolerance 1 0.5 1 Global Estimate 1 0 - Very Well 0 - Very Well RAPID3 2 0.5 1 Interpretation Near Remission Near Remission Near Remission RAPID3 Score: As documented by Nurses/MAs during this visit and reviewed by me. Assessment & Plan: Ankylosing spondylitis: Dx 2022. HLA-B27 positive. No uveitis on ophthalmology evaluation (04/2023). Sacroiliitis on MRI. Currently managed with NSAIDs and Adalimumab (04/2023 - ...). On assessment today reports significant improvement in arthralgia (axial and b/l hip, knee and ankle) in response to meloxicam / adalimumab use. Feels that adalimumab has slightly improved symptoms and that he requires less meloxicam. Denies prolonged morning stiffness. On examination Guzman's expansion 7cm and Occiput test 0cm. Labs reviewed (04/2023). RAPID3 1. Overall feel SpA well controlled. - Continue home exercise. - Continue meloxicam 15mg daily as needed. Continuous NSAID use reported to slow radiographic progression. - Continue adalimumab 40mg every 14-days. Potential to increase dosing interval to 21- or 28-days if symptoms were well controlled. Health maintenance: - Order CBC and CMP every 3-months with regular NSAID use. - Hepatitis serologies and quantiferon negative (2022) - Immunizations: Recommend COVID19 booster and seasonal flu vaccine. - Awaiting ophthalmology evaluation ? uveitis 04/[address] Narayanan in 6 months MARLON Sutherland, 10/09/2023 15:58 I spent a total of 20 minutes on the date of this encounter meeting with the patient and reviewing documentation/coordinating care as described in the above note. No procedures were performed at the time of the visit. documented in this encounter Plan of Treatment Upcoming Encounters Date Type Department Care Team (Late st Contact Info) Description 04/10/2024 10:15 EST Office Visit [facility] Rheumatology [address] [place] [address] Tee Narayanan MBBS [address] [facility], [facility] [address] [place] [phone] documented as of this encounter Visit Diagnoses Diagnosis Ankylosing spondylitis of multiple sites in spine (HCC-CMS)- Primary Ankylosing spondylitis Sacroiliitis (HCC-CMS) Sacroiliitis, not elsewhere classified Spondyloarthropathy Spondylosis of unspecified site without mention of myelopathy High risk medication use Encounter for long-term (current) use of other medications Encounter for long-term (current) use of medications Encounter for long-term (current) use of other medications Drug-induced immunodeficiency (HCC-CMS) Unspecified disorder of immune mechanism documented in this encounter Historical Medications * This list may reflect changes made after this encounter. Medication Sig Dispensed Refills Start Date End Date rosuvastatin (CRESTOR) 5 mg tablet Take 1 Tablet by mouth daily. 07/23/2023 added in this encounter Care Teams Criminalist Technician Relationship Specialty Start Date End Date Mariia Burt MD [address] [place] [phone] PCP - General Family Medicine - Primary Care 08/25/22 documented as of this encounter
--- OUTSIDE RECORDS SUMMARY | 2024-01-07 09:07 | XMS_ITS | Encounter Summary ---
Author Organization [facility] Address [address] [place] [address] Care Team Providers Care Facing Slitter Name Role Phone Mariia Burt MD Primary Care Provider [phone] Encounter Details Date Type Department Care Team (Latest Contact Info) Description 11/21/[address] [facility] [address] [place], [place] [address] Humble Sheikh [facility] Refill Coordination Outreach for Rheumatology Social History [...] as of this encounter Progress Notes * Lydia Anderson - 11/21/2023 1414 EDT Specialty Pharmacy Documentation Medication: humira Clinic: [facility] Reason for Encounter: outreach Notes: req new rx Follow up date: 11/21 Follow up reason: refill documented in this encounter Plan of Treatment Upcoming Encounters Date Type Department Care Team (Late st Contact Info) Description 04/10/2024 10:15 EST Office Visit [facility] Rheumatology [address] [place] [address] Tee Narayanan MBBS 111 [facility] [address] [place] [address] documented as of this encounter Visit Diagnoses Not on filedocumented in this encounter Care Teams Facing Slitter Relationship Specialty Start Date End Date Mariia Burt MD [address] [place] [address] PCP - General Family Medicine - Primary Care 08/25/22 documented as of this encounter
--- OUTSIDE RECORDS SUMMARY | 2024-01-07 09:07 | XMS_ITS ---
Author Organization Unknown Address [address] [place] [phone] Phone Care Team Providers Care Commercial Trailer Truck Driver Name Role Phone BAUTISTA SRIVASTAVA Attending Unavail able Social History Type Status Start Date End [...] Sys tem Obstructive sleep apnea (adult) (pediatric) 03/19/2023 SNOMED-CT Personal Care Team Section Performer Name Performer Role Active Date Inactive Da te
--- OUTSIDE RECORDS SUMMARY | 2024-01-07 09:08 | XMS_ITS | Encounter Summary ---
Author Organization [facility] Address [address] [place] [address] Care Team Providers Care Stone Polisher Hand Name Role Phone Unknown, Provider Primary Care Provider [phone] Reason for Visit * Reason Comments Tinnitus * Consult (See Order Priority) - Order Cancelled Specialty Diagnoses / Procedures Referred By Vicki fregoso Referred To Contact Otolaryngology Diagnoses Tinnitus of both ears Jc Mahan PA-C [address] [place] [phone] Elvin Wiely MD [address] [facility] [address] [place] [address] Referral ID Status Reason Start Date Expiration Date Visits Requested Visits Authorized [id number] Order Cancelled Specialty Services Required 08/15/2021 1 1 Encounter Details Date Type Department Care Team (Late st Contact Info) Description 10/25/2021 9:00 EDT Audiology [facility] [address] [place] [address] Rick Hitchcock, PHD MS/CCC-A Sensorineural hearing loss (SNHL) of both ears [...] 15:14 EDT Sexual Orientation Not on file COVID-19 Exposure Response Date Recorded In the last 10 days, have yo u been in contact with someone who was confirmed or suspected to have Coronavirus/COVID-19? No / Unsure 10/25/2021 9:02 EDT documented as of this encounter Functional Status Functional Status Response Date of Assess ment Are you deaf or do you have serious difficulty h earing? No 08/15/2021 documented as of this encounter Progress Notes * Rick Hitchcock, AuD - 10/25/2021 0900 EDT Subjective: Jayy Christianson ( 1975 -- 46 y.o. old) was seen on 10/25/2021 for hearing evaluation at the request of Jc Mahan PA-C. Mr. Christianson reported tinnitus worse in the past few months, no specific trigger for worsening, constant but can change pitch and vary in intensity (baseline is always there, present for a few years). 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 For the past few months since the tinnitus has been bothering he has been using foam earplugs when riding motorcycles and using air pods when drivingfor noise canceling. He also reported sensitivity to loud sounds such as being in a loud restaurant. He is concerned that the tinnitus is getting worse and that there is nothing that can be done about it. It causes some significant anxiety. Family history of hearing loss includes father with hearing aids in the last 25 years and getting worse. He reported no ear pain, no dizziness, no ear surgery, no previous hearing test, no previous hearing aid use, no head injury, no stroke, no memory problems, no chemotherapy, and no diabetes. Objective: Signals were presented via DD45 audiometric headphones or bone oscillator placed on the left mastoid. All thresholds in table in dB HL. AC= Air Conduction, BC= Bone Conduction Frequency 250 623 134 9817 1500 2000 3000 4000 6000 8000 UnmaskedBC 5 5 20 20 Right AC 10 10 10 10 25 20 25 35 Right BC Left AC 5 10 10 10 25 35 30 40 Left BC 25 Mr. Christianson???s speech oak tanner threshold (SRT) was 10 dB HL in the right ear, 10 dB HL in the leftear. This is consistent with his thresholds for tones, noted in the table above. No significant air-bone gap or asymmetry was noted. Mr. Christianson???s word recognition ability was 90% in the right ear and 88% in the left ear when tested at a loud level (80 dB HL with 50 dB HL masking noise presented to the opposite ear) using the NU-6 (ordered by difficulty). Tympanometry revealed normal ear canal volumes, middle ear pressure and compliance (Jerger Type A) (YtmR= 0.5 ml @ -10 daPa; YtmL= 0.5 ml @ -10 daPa). Distortion product otoacoustic emissions (DPOAEs) were normal in both ears through 5000 Hz and totally absent above 9000 Hz. Assessment: has tinnitus and mild high-frequency hearing loss consistent with reported noise exposure. Plan: was reassured that tinnitus is very common and can fluctuate but does not always worsen. He is encouraged to protect his ears from things known to aggravate tinnitus-- including using hearing protection, reducing caffeine, and getting good sleep. A copy of the audiogram and good communications tips sheet was provided. Return for repeat evaluation if symptoms change or in one year for monitoring. verbally indicated understanding of the information provided at today???s visit. Rd Hitchcock (Kairn), PhD, MS/[facility]-A Two Needle Machine Operator documented in this encounter Plan of Treatment Upcoming Encounters Date Type Department Care Team (Late st Contact Info) Description 04/10/2024 10:15 EST Office Visit [facility] Rheumatology [address] [place] [address] Tee Narayanan MBBS [address] [place] [address], [facility] [address] [place] [address] documented as of this encounter Visit Diagnoses Diagnosis Sensorineural hearing loss (SNHL) of both ears- Primary documented in this encounter Care Teams Stone Polisher Hand Relationship Specialty Start Date End Date Unknown, Provider, PCP - General 05/25/16 08/24/22 documented as of this encounter
--- OUTSIDE RECORDS SUMMARY | 2024-01-07 09:08 | XMS_ITS | Encounter Summary ---
Author Organization [facility] Address [address] [place] [address] Care Team Providers Care Bingo Floater Name Role Phone Unknown, Provider Primary Care Provider [phone] Encounter Details Date Type Department Care Team (Latest Contact Info) Description 08/01/2016 20:52 EST - 08/01/2016 23:59 EST Hospital Encounter [address] [address] Unknown, Provider, Discharge Disposition: Home or Self Care Social History Tobacco Use Types Packs/Day Years Used Date Smoking Tobacco: Never Assessed Sex and Gender Information Value Date Recorded Sex Assigned at Not on file Gender Identity Male 08/15/2021 15:14 EDT Sexual Orientation Not on file documented as of this encounter Discharge Disposition Disposition Code Departure Means Destination Home or Self [facility] documented in this encounter Plan of Treatment Upcoming Encounters Date Type Department Care Team (Late st Contact Info) Description 04/10/2024 10:15 EST Office Visit [facility] Rheumatology [address] [place] [address] Tee Narayanan MBBS [address] [facility], [address] [place] [address] documented as of this encounter Visit Diagnoses Not on filedocumented in this encounter Care Teams Bingo Floater Relationship Specialty Start Date End Date Unknown, ProviderMD PCP - General 05/25/16 08/24/22 documented as of this encounter
--- OUTSIDE RECORDS SUMMARY | 2024-01-07 09:08 | XMS_ITS | Encounter Summary ---
Author Organization [facility] Address [address] [place] [address] Care Team Providers Care Streets And Buildings Decorator Name Role Phone Unknown, Provider Primary Care Provider [phone] Encounter Details Date Type Department Care Team (Late st Contact Info) Description 07/11/2016 Historical Results Only [facility] - Main [place] [id number] Meenu Vyas PA-C [address] [place] [phone] Social History Tobacco Use Types Packs/Day Years Used Date Smoking Tobacco: Never Assessed Sex and Gender Information Value Date Recorded Sex Assigned at Not on file Gender Identity Male 08/15/2021 15:14 EDT Sexual Orientation Not on file documented as of this encounter Plan of Treatment Upcoming Encounters Date Type Department Care Team (Late st Contact Info) Description 04/10/2024 10:15 EST Office Visit [facility] Rheumatology [address] [place] [address] Tee Narayanan MBBS [address] [facility], [facility] [address] [place] [address] documented as of this encounter Procedures Procedure Name Priority Date/Time Associated Diagnosis Comments SHIGA TOXINS 1 & 2 - [facility] Routine 07/11/2016 16:20 EST C. DIFFICILE PCR Routine 07/11/2016 16:2 0 EST OCCULT BLOOD DIAGNOSTIC, FECES Routine 07/11/2016 16:20 EST GIARDIA AND CRYPTOSPORIDIUM ANTIGENS Routine 07/11/2016 16:20 EST documented in this encounter Results * SHIGA TOXINS 1 & 2 - [facility] (07/11/2016 16:20 EST) E.COLI SHINGA TOXIN 1 - [facility] E.COLI SHIGA TOXIN 1 NOT DETECTED 07/13/2016 11:00 [facility] E.COLI SHIGA TOXIN 2 - [facility] E.COLI SHIGA TOXIN 2 NOT DETECTED 07/13/2016 11:00 [facility] NO SALMONELLA, SHIGELLA, AEROMONAS OR YERSINIA ISOLATED 07/15/2016 11:15 [facility] NO CAMPYLOBACTER SP. ISOLATED 07/15/2016 11:15 [facility] NO E.COLI [id number] 07/15/2016 11:15 [facility] 07/11/2016 16:2 0 EST 07/12/2016 15:18 EST Narrative [facility] - 07/15/2016 11:15 EST AOT: 07/12/16 1518: STOOL CULTURE Meenu Vyas PA-C HEMATOLOGY & PF4 ORD ERABLES [facility] * C. DIFFICILE PCR (07/11/2016 16:20 EST) C. difficile PCR Negative 07/11/2016 22:15 EST [facility] 027,NAP1,BI STRAIN - [facility] Negative 07/11/2016 22:15 [facility] Comment:Presumptive negative for 027, NAP1, BI strain. 07/11/2016 16:2 0 EST 07/11/2016 18:28 EST Meenu Vyas PA-C MICROBIOLOGY - GENER AL ORDERABLES [facility] * GIARDIA & CRYPTOSPORIDIUM ANTIGENS (07/11/2016 16:20 EST) CRYPTOSPORIDIUM PARVUM - [facility] Negative 07/11/2016 19:58 EST [facility] GIARDIA LAMBLIA - [facility] Negative 07/11/2016 19:58 EST [facility] Organism ID Soft 07/11/2016 19:58 EST [facility] 07/11/2016 16:2 0 EST 07/11/2016 18:29 EST Meenu Vyas PA-C MICROBIOLOGY - GENER AL ORDERABLES [facility] * OCCULT BLOOD DIAGNOSTIC, FECES (07/11/2016 16:20 EST) STOOL FOR OCCULT BLOOD - [facility] NEG NEG 07/11/2016 19:09 EST [facility] 07/11/2016 16:2 0 EST 07/11/2016 18:28 EST Meenu Vyas PA-C MICROBIOLOGY - GENER AL ORDERABLES [facility] documented in this encounter Visit Diagnoses Not on filedocumented in this encounter Care Teams Streets And Buildings Decorator Relationship Specialty Start Date End Date Unknown, Provider, PCP - General 05/25/16 08/24/22 documented as of this encounter
--- OUTSIDE RECORDS SUMMARY | 2024-01-07 09:08 | XMS_ITS | Encounter Summary ---
Author Organization [facility] Address [address] [place] [address] Care Team Providers Care Head Stock Operator Name Role Phone Mariia Burt MD Primary Care Provider [phone] Reason for Visit * Radiology Services (Routine/Next Available) - Authorization Not Required Specialty Diagnoses / Procedures Referred By Contac t Referred To Contact Diagnoses Low back pain, unspecified Procedures XR LUMBAR SPINE 4+ VIEWS XR LUMBAR SPINE COMPLETE WITH FLEX/EXT AND OBLIQUES MIN 6 VIEWS Mariia Burt MD [address] [place] [phone] [facility] Referral ID Status Reason Start Date Expiration Date Visits Requested Visits Authorized [id number] Authorization Not Required 08/23/2022 1 1 Encounter Details Date Type Department Care Team (Latest Contact Info) Description 08/25/2022 9:59 EDT - 08/25/2022 23:59 EDT Hospital Encounter [facility] [place] [address] [place] [address] Discharge Disposition: Home or Self Care Social [...] No 08/15/2021 documented as of this encounter Medications at Time of Discharge Medication Sig Dispensed Refills Start Date End Date cetirizine (ZYRTEC) 10 mg tablet Take 1 Tablet by mouth daily. dicyclomine (BENTYL) 20 mg tablet Take 1 Tablet by mouth 3 times daily as needed. 08/23/2022 02/21/2023 documented as of this encounter Discharge Disposition Disposition Code Departure Means Destination Home or Self Care documented in this encounter Plan of Treatment Upcoming Encounters Date Type Department Care Team (Late st Contact Info) Description 04/10/2024 10:15 EST Office Visit [facility] Rheumatology [address] [place] [address] Tee Narayanan MBBS [address] [facility], [facility] [address] [place] [address] documented as of this encounter Procedures Procedure Name Priority Date/Time Associated Diagnosis Comments XR LUMBAR SPINE 4+ VIEWS Routine 08/25/2022 11:02 EDT Low back pain, unspecified documented in this encounter Results * XR LUMBAR SPINE 4+ VIEWS (08/25/2022 11:02 EDT) Anatomical Region Laterality Modality Computed Radiogr aphy 08/25/2022 11:0 2 EDT Impressions 08/25/2022 11:02 EDT 1. ??Mild lumbar spondylosis. 2. ??No significant spondylolisthesis. Narrative 08/25/2022 11:02 EDT XR LUMBAR SPINE 4+ VIEWS ?? Signs and Symptoms/Comments: Low Back Pain Comparison: Separately dictated sacroiliac joint radiographs on 08/25/2022 FINDINGS: Lumbar Spine: Upright AP, lateral, flexion and extension views were performed. Vertebral bodies: There are 5 lumbar type vertebral bodies. Alignment: No significant spondylolisthesis or evidence of dynamic instability on flexion or extension. No scoliosis. Bones: No acute fracture identified. Degenerative changes: Mild multilevel discopathy and facet arthrosis. SI joints: Mild left and minimal right sacroiliac degenerative changes. Soft tissues: Unremarkable. Procedure Note Jaxon Black MD - 08/25/2022 XR LUMBAR SPINE 4+ VIEWS Signs and Symptoms/Comments: Low Back Pain Comparison: Separately dictated sacroiliac joint radiographs on 08/25/2022 FINDINGS: Lumbar Spine: Upright AP, lateral, flexion and extension views wereperformed. Vertebral bodies: There are 5 lumbar type vertebral bodies. Alignment: No significant spondylolisthesis or evidence of dynamicinstability on flexion or extension. No scoliosis. Bones: No acute fracture identified. Degenerative changes: Mild multilevel discopathy and facet arthrosis. SI joints: Mild left and minimal right sacroiliac degenerative changes. Soft tissues: Unremarkable. IMPRESSION 1. Mild lumbar spondylosis. 2. No significant spondylolisthesis. Mariia Burt MD IMG DIAGNOSTIC IMAGI NG ORDERABLES documented in this encounter Visit Diagnoses Not on filedocumented in this encounter Care Teams Head Stock Operator Relationship Specialty Start Date End Date Mariia Burt MD [address] [place] [address] PCP - General Family Medicine - Primary Care 08/25/22 documented as of this encounter
--- OUTSIDE RECORDS SUMMARY | 2024-01-07 09:08 | XMS_ITS | Encounter Summary ---
Author Organization [facility] Address [address] [place] [address] Care Team Providers Care Animal Husbandry Manager Name Role Phone Unknown, Provider Primary Care Provider [phone] Reason for Visit * Reason Comments Headache Patient has been hav ing ringing in both ears for the past 6months, worse this week and has had headaches. He recently moved here, doesn't have a PCP and reports 6months wait for that. Encounter Details Date Type Department Care Team (Late st Contact Info) Description 08/15/2021 17:19 EDT - 08/15/2021 18:04 EDT Emergency [facility] Emergency Department [address] [place] [address] Jc Mahan PA-C [address] [place] [address] Tinnitus of both ears (Primary Dx) Discharge Disposition: Home or Self Care Social [...] Exposure Response Date Recorded In the last month, have you been in contact with someone who was confirmed or suspected to have Coronavirus / COVID-19? No / Unsure 08/15/2021 15:32 EDT documented as of this encounter Last Filed Vital Signs Vital Sign Reading Time Taken Comments Blood Pressure 111/75 08/15/2021 1532 EDT Pulse 75 08/15/2021 1532 EDT Temperature 36.7 ??C (98.1 ??F) 08/15/2021 1532 EDT Respiratory Rate 12 08/15/2021 1532 EDT Oxygen Saturation 97% 08/15/2021 153 EDT Inhaled Oxygen Concentration - - Weight 79.4 kg (175 lb) 08/15/2021 1532 EDT Height 182.9 cm (6') 08/15/2021 1532 EDT Body Mass Index 23.73 08/15/2021 1532 EDT documented in this encounter Functional Status Functional Status Response Date of Assess ment Are you deaf or do you have serious difficulty h earing? No 08/15/2021 documented as of this encounter Discharge Instructions * Discharge Instructions* Jc Mahan PA-C - 08/15/2021 18:00 EDT You were seen today for ringing in the ears. Your exam was quite reassuring. Follow-up with ear nose and throat, a referral was placed, give their office a call tomorrow to schedule appointment. Return to the ED if you develop new or worsening symptoms. * Attachments The following attachments cannot be sent through Care Everywhere. * Tinnitus (Armenian) documented in this encounter Medications at Time of Discharge Medication Sig Dispensed Refills Start Date End Date cetirizine (ZYRTEC) 10 mg tablet Take 1 Tablet by mouth daily. documented as of this encounter Discharge Disposition Disposition Code Departure Means Destination Home or Self Senior Care documented in this encounter ED Notes * Jc Mahan PA-C - 08/15/2021 1722 EDT Emergency Department Visit Assessment and ED Course Previously healthy 46-year-old male who recently moved back to this area presents for evaluation of6 to 8 months constant tenderness that has become more bothersome in the past several weeks. He states that his a relatively constant pitch, he describes it as similar to cicada. Denies any exacerbating or alleviating factors. He states it has occasionally changed patch, but this happens infrequently. It is not worse in 1 year. He has had intermittent headaches over the past few weeks, which are posterior and in the superior neck, with associated neck discomfort. He believes these are related to neck tension. Denies dizziness, blurry vision, loss of vision, vision changes, loss of hearing, orrecent illness. Exam reassuring, with no carotid bruits, nonfocal neuro exam, unremarkable external ear exam and TMexam. No change with opening his mouth. I suspect his headache is tension headache. History of tinnitus is reassuring, it is not pulsatile, does not frequently change pitch, and is constant. I suspect this is an inner ear issue. I think it is unlikely this has a vascular cause. Stable for discharge home. He was given a referral to ENT. Return precautions provided. Case discussed with Dr. Barlow, who was in agreement with assessment and plan. Final diagnoses: Tinnitus of both ears Disposition: Discharged Chief complaint: Tinnitus NOAH Christianson is a 46 y.o. male who presents to the ED for evaluation of 6 to 8 months constant tenderness that has become more bothersome in the past several weeks. He states that his a relatively constant pitch, he describes it as similar to cicada. Denies any exacerbating or alleviating factors. He states it has occasionally changed patch, but this happens infrequently. It is not worse in 1 year. He has had intermittent headaches over the past few weeks, which are posterior and in the superior neck, with associated neck discomfort. He believes these are related to neck tension. Denies dizziness, blurry vision, loss of vision, vision changes, loss of hearing, fever, chills, body aches, chest pain, difficulty breathing, or any other complaint. He occasionally takes Zyrtec and Claritin, but does not take any other medications. History was provided by: Patient Patient's pertinent PMH, FH, SH were reviewed and edited as necessary. ROS A 10-point review of systems was performed. The patient answered negative to all questions with theexceptions of those explicitly detailed as positives in the HPI. Pertinent negatives are also explicitly stated. Physical Exam BP 111/75 (BP Cuff Location: Left arm, BP Patient Position: Sitting) Pulse 75 Temp 36.7 ??C (98.1 ??F) (Temporal) Resp 12 Ht 182.9 cm (72) Wt 79.4 kg (175 lb) SpO2 97% BMI 23.73 kg/m?? A medical screening exam was performed. Physical Exam Vitals reviewed. Constitutional: General: He is not in acute distress. Appearance: He is well-developed and well-nourished. He is not diaphoretic. HENT: Head: Atraumatic. Right Ear: Tympanic membrane normal. No decreased hearing noted. No drainage, swelling or tenderness. No middle ear effusion. There is no impacted cerumen. No foreign body. No mastoid tenderness. No hemotympanum. Tympanic membrane is not injected, scarred, perforated, erythematous, retracted or bulging. Left Ear: Tympanic membrane normal. No decreased hearing noted. No drainage, swelling or tenderness. No middle ear effusion. There is no impacted cerumen. No foreign body. No mastoid tenderness. No hemotympanum. Tympanic membrane is not injected, scarred, perforated, erythematous, retracted or bulging. Ears: Comments: Equal hearing bilaterally Mouth/Throat: Pharynx: Oropharynx is clear. Normal. Eyes: Extraocular Movements: EOM normal. Conjunctiva/sclera: Conjunctivae normal. Pupils: Pupils are equal, round, and reactive to light. Neck: Vascular: No carotid bruit. Trachea: No tracheal deviation. Cardiovascular: Rate and Rhythm: Normal rate and regular rhythm. Heart sounds: No murmur heard. Pulmonary: Effort: Pulmonary effort is normal. No respiratory distress. Breath sounds: No stridor. No wheezing or rales. Abdominal: General: There is no distension. Palpations: Abdomen is soft. Tenderness: There is no abdominal tenderness. Musculoskeletal: General: No edema. Cervical back: Full passive range of motion without pain and normal range of motion. Skin: General: Skin is warm and dry. Capillary Refill: Capillary refill takes less than 2 seconds. Neurological: Mental Status: He is alert. Sensory: No sensory deficit. Motor: No abnormal muscle tone. Coordination: Coordination normal. Procedures Procedures documented in this encounter Plan of Treatment Upcoming Encounters Date Type Department Care Team (Late st Contact Info) Description 04/10/2024 10:15 EST Office Visit [facility] Rheumatology [address] [place] [address] Tee Narayanan MBBS [address] [place] [address] [address] [place] [address] documented as of this encounter Visit Diagnoses Diagnosis Tinnitus of both ears- Primary Unspecified tinnitus documented in this encounter Historical Medications * This list may reflect changes made after this encounter. Medication Sig Dispensed Refills Start Date End Date cetirizine (ZYRTEC) 10 mg tablet Take 1 Tablet by mouth daily. added in this encounter Care Teams Animal Husbandry Manager Relationship Specialty Start Date End Date Unknown, Provider, PCP - General 05/25/16 08/24/22 documented as of this encounter
--- OUTSIDE RECORDS SUMMARY | 2024-01-07 09:08 | XMS_ITS | Encounter Summary ---
Author Organization [facility] Address [address] [place] [address] Care Team Providers Care Vegetable Thinner Name Role Phone Unknown, Provider Primary Care Provider [phone] Encounter Details Date Type Department Care Team (Latest Contact Info) Description 08/15/2021 Travel Social History Tobacco Use Types Packs/Day Years [...] 15:32 EDT documented as of this encounter Functional Status Functional Status Response Date of Assess ment Are you deaf or do you have serious difficulty h earing? No 08/15/2021 documented as of this encounter Plan of Treatment Upcoming Encounters Date Type Department Care Team (Late st Contact Info) Description 04/10/2024 10:15 EST Office Visit [facility] Rheumatology [address] [place] [address] Tee Narayanan MBBS 111 [facility], [facility] [address] [place] [address] documented as of this encounter Visit Diagnoses Not on filedocumented in this encounter Care Teams Vegetable Thinner Relationship Specialty Start Date End Date Unknown, Provider, PCP - General 05/25/16 08/24/22 documented as of this encounter
--- OUTSIDE RECORDS SUMMARY | 2024-01-07 09:08 | XMS_ITS | Encounter Summary ---
Author Organization [facility] Address [address] [place] [address] Care Team Providers Care Viscose Cellar Worker Name Role Phone Mariia Burt MD Primary Care Provider [phone] Encounter Details Date Type Department Care Team (Late st Contact Info) Description 12/21/2022 Abstract [facility] Rheumatology [address] [place] [address] Jessica Cleaning RN Social History Tobacco Use Types Packs/Day Years [...] Info) Description 04/10/2024 10:15 EST Office Visit [facility] Rheumatology [address], [place] [id number] Tee Narayanan MBBS [address] [facility], [facility] [address] [place] [address] documented as of this encounter Visit Diagnoses Not on filedocumented in this encounter Historical Medications * This list may reflect changes made after this encounter. Medication Sig Dispensed Refills Start Date End Date MULTIVITAMIN ORAL Take by mouth. psyllium husk (FIBER, PSYLLIUM HUSK,) 0.4 gram capsule Take by mouth. meloxicam (MOBIC) 15 mg tablet Take 1 Tablet by mouth daily. dicyclomine (BENTYL) 20 mg tablet Take 1 Tablet by mouth 3 times daily as needed. 08/23/2022 02/21/2023 added in this encounter Care Teams Viscose Cellar Worker Relationship Specialty Start Date End Date Mariia Burt MD [address] [place] [id number] PCP - General Family Medicine - Primary Care 08/25/22 documented as of this encounter
--- OUTSIDE RECORDS SUMMARY | 2024-01-07 09:08 | XMS_ITS | Encounter Summary ---
Author Organization [facility] Address [address] [place] [address] Care Team Providers Care Machine Finisher Name Role Phone Mariia Burt MD Primary Care Provider [phone] Reason for Referral * Radiology Services (Routine/Next Available) - Authorization Not Required Specialty Diagnoses / Procedures Referred By Contac t Referred To Contact Diagnoses Sacroiliitis (HCC-CMS) High risk medication use Encounter for long-term (current) use of medications Drug-induced immunodeficiency (HCC-CMS) Spondyloarthropathy Ankylosing spondylitis of lumbosacral region (HCC-CMS) Procedures XR THORACIC SPINE 2 VIEWS Tee Narayanan MBBS [address] [address] [facility] Referral ID Status Reason Start Date Expiration Date Visits Requested Visits Authorized [id number] Authorization Not Required 01/04/2023 1 1 Reason for Visit * Radiology Services (Routine/Next Available) - Authorization Not Required Specialty Diagnoses / Procedures Referred By Contac t Referred To Contact Diagnoses Sacroiliitis (HCC-CMS) High risk medication use Encounter for long-term (current) use of medications Drug-induced immunodeficiency (HCC-CMS) Spondyloarthropathy Ankylosing spondylitis of lumbosacral region (HCC-CMS) Procedures XR CERVICAL SPINE 2-3 VIEWS XR CERVICAL SPINE 4-5 VIEWS Tee Narayanan MBBS [address] [address] [facility] Referral ID Status Reason Start Date Expiration Date Visits Requested Visits Authorized [id number] Authorization Not Required 01/04/2023 1 1 Encounter Details Date Type Department Care Team (Latest Contact Info) Description 01/04/2023 9:56 EDT - 01/04/2023 23:59 EDT Hospital Encounter [facility] Xray [address] [place] [address] Sacroiliitis ([facility]); High risk medication use; Encounter for long-term (current) use of medications; Drug-induced immunodeficiency ([facility]); Spondyloarthropathy; Ankylosing spondylitis of lumbosacral region ([facility]) Discharge Disposition: Home or Self Care Social [...] tablet Take 1 Tablet by mouth daily. meloxicam (MOBIC) 15 mg tablet Take 1 Tablet by mouth daily. MULTIVITAMIN ORAL Take by mouth. psyllium husk (FIBER, PSYLLIUM HUSK,) 0.4 gram capsule Take by mouth. dicyclomine (BENTYL) 20 mg tablet Take 1 Tablet by mouth 3 times daily as needed. 08/23/2022 02/21/2023 documented as of this encounter Discharge Disposition Disposition Code Departure Means Destination Home or Self Care documented in this encounter Miscellaneous Notes * Result Encounter Note - Tee Narayanan MBBS - 01/04/2023 1015 EDT Results quicknote: (01/04/23) Labs: K 5.3. ESR 18. Hb 13.7. CBC and CMP otherwise unremarkable CRP wnl. Hepatitis serologies. (01/04/23) XR C-spine: 1. No specific evidence of ankylosing spondylitis is detected. 2. Very early lower cervical spine degenerative disc and facet disease. (01/04/23) XR T-spine: 1. No thoracic spine bony abnormality detected. No imaging evidence of thoracic ankylosing spondylitis is seen. Impression: RF, CCP, quantiferon and lyme pending. Borderline elevated ESR Spine radiographs identified mild lumbar spondylosis and early C-spine DDD without evidence of . * Result Encounter Note - Tee Narayanan MBBS - 01/04/2023 1015 EDT Results quicknote: (01/04/23) XR C-spine: Final read 1. No specific evidence of ankylosing spondylitis is detected. 2. Very early lower cervical spine degenerative disc and facet disease. No syndesmophytes suggestive of advanced . Submit adalimumab prior auth on patient request documented in this encounter Plan of Treatment Upcoming Encounters Date Type Department Care Team (Late st Contact Info) Description 04/10/2024 10:15 EST Office Visit [facility] Rhe[facility]ology [address] [place] [address] Tee Narayanan MBBS [address] [place] [address], [address] [place] [address] documented as of this encounter Procedures Procedure Name Priority Date/Time Associated Diagnosis Comments XR THORACIC SPINE 2 VIEWS Routine 01/04/2023 10:20 EDT Sacroiliitis ([facility]) High risk medication use Encounter for long-term (current) use of medications Drug-induced immunodeficiency (HCC-CMS) Spondyloarthropathy Ankylosing spondylitis of lumbosacral region ([facility]) XR CERVICAL SPINE 2-3 VIEWS Routine 01/04/2023 10:20 EDT Sacroiliitis (HCC-CMS) High risk medication use Encounter for long-term (current) use of medications Drug-induced immunodeficiency (HCC-CMS) Spondyloarthropathy Ankylosing spondylitis of lumbosacral region ([facility]) QUANTIFERON MITOGEN (PERFORMABLE) Routine 01/04/2023 10:07 EDT Sacroiliitis ([facility]) High risk medication use Encounter for long-term (current) use of medications Drug-induced immunodeficiency (HCC-CMS) QUANTIFERON TB2 (PERFORMABLE) Routine 01/04/2023 10:07 EDT Sacroiliitis ([facility]) High risk medication use Encounter for long-term (current) use of medications Drug-induced immunodeficiency ([facility]) QUANTIFERON TB1 (PERFORMABLE) Routine 01/04/2023 10:07 EDT Sacroiliitis ([facility]) High risk medication use Encounter for long-term (current) use of medications Drug-induced immunodeficiency ([facility]) QUANTIFERON NIL (PERFORMABLE) Routine 01/04/2023 10:07 EDT Sacroiliitis ([facility]) High risk medication use Encounter for long-term (current) use of medications Drug-induced immunodeficiency ([facility]) QUANTIFERON INTERPRETATION (PERFORMABLE) Today 01/04/2023 10:07 EDT Sacroiliitis ([facility]) High risk medication use Encounter for long-term (current) use of medications Drug-induced immunodeficiency ([facility]) CCP ANTIBODIES Routine 01/04/2023 10:07 EDT Sacroiliitis ([facility]) High risk medication use Encounter for long-term (current) use of medications Drug-induced immunodeficiency ([facility]) QUANTIFERON TB GOLD PLUS Routine 01/04/2023 10:07 EDT Sacroiliitis ([facility]) High risk medication use Encounter for long-term (current) use of medications Drug-induced immunodeficiency ([facility]) HEPATITIS C AB W REFLEX TO HCV RNA BY PCR Routine 01/04/2023 10:07 EDT Sacroiliitis ([facility]) High risk medication use Encounter for long-term (current) use of medications Drug-induced immunodeficiency (HCC-CMS) HEPATITIS B CORE ANTIBODY (TOTAL) Routine 01/04/2023 10:07 EDT Sacroiliitis (HCC-CMS) High risk medication use Encounter for long-term (current) use of medications Drug-induced immunodeficiency (HCC-CMS) HEPATITIS B SURFACE ANTIBODY Routine 01/04/2023 10:07 EDT Sacroiliitis (HCC-CMS) High risk medication use Encounter for long-term (current) use of medications Drug-induced immunodeficiency (HCC-CMS) HEPATITIS B SURFACE ANTIGEN Routine 01/04/2023 10:07 EDT Sacroiliitis (HCC-CMS) High risk medication use Encounter for long-term (current) use of medications Drug-induced immunodeficiency (HCC-CMS) SED RATE Routine 01/04/2023 10:07 EDT Sacroiliitis (HCC-CMS) High risk medication use Encounter for long-term (current) use of medications Drug-induced immunodeficiency (HCC-CMS) COMPLETE BLOOD COUNT AND DIFFERENTIAL Routine 01/04/2023 10:07 EDT Sacroiliitis (HCC-CMS) High risk medication use Encounter for long-term (current) use of medications Drug-induced immunodeficiency (HCC-CMS) C REACTIVE PROTEIN Routine 01/04/2023 10 :07 EDT Sacroiliitis (HCC-CMS) High risk medication use Encounter for long-term (current) use of medications Drug-induced immunodeficiency (HCC-CMS) COMPREHENSIVE METABOLIC PANEL (CMP) Routine 01/04/2023 10:07 EDT Sacroiliitis (HCC-CMS) High risk medication use Encounter for long-term (current) use of medications Drug-induced immunodeficiency (HCC-CMS) documented in this encounter Results * XR CERVICAL SPINE 2-3 VIEWS (01/04/2023 10:20 EDT) Anatomical Region Laterality Modality Computed Radiogr aphy 02/08/2023 12:3 5 EDT Addenda Addendum by Madhav Olguin MD on 02/08/2023 12:35 EDT Addendum: Note: Higher level of service ordered, lesser service performed. 4 views requested by the Physician, 3 views performed by the Technologist, Only charge for 3 views. Charge has been corrected to reflect imaging performed. [id number] Impressions 01/04/2023 11:27 EDT 1. No specific evidence of ankylosing spondylitis is detected. 2. Very early lower cervical spine degenerative disc and facet disease. [id number] Narrative 01/04/2023 11:27 EDT INDICATION: New diagnosis of ? Bridging syndesmopytes;M46.1:Sacroiliitis (HCC-CMS);Z79.899:High risk medication use;Z79.899:Encounter for long-term (current) use of medications;D84.821:Drug-induced immunodeficiency (HCC-CMS);Z79.899:Drug-induced immunodeficiency (HCC-CMS);M47.819:Spondyloarthropathy;M45.7:Ankylosing spondylitis of lumbosacral region (HCC-CMS) TECHNIQUE: 3 views cervical spine. COMPARISON: None. FINDINGS: Alignment: There is a trace retrolisthesis of C5 on C6 and C6 on C7. There is mild degenerative straightening of the normal cervical lordosis. Early lower cervical spine disc space narrowing and minimal hypertrophic facet changes are seen. Degenerative: Unremarkable. Bone: Unremarkable. Soft Tissue: Unremarkable. Procedure Note Madhav Olguin MD - 01/04/2023 INDICATION: New diagnosis of ? Bridgingsyndesmopytes;M46.1:Sacroiliitis (HCC-CMS);Z79.899:High risk medicationuse;Z79.899:Encounter for long-term (current) use ofmedications;D84.821:Drug-induced immunodeficiency(HCC-CMS);Z79.899:Drug-induced immunodeficiency(HCC-CMS);M47.819:Spondyloarthropathy;M45.7:Ankylosing spondylitis oflumbosacral region (HCC-CMS) TECHNIQUE: 3 views cervical spine. COMPARISON: None. FINDINGS: Alignment: There is a trace retrolisthesis of C5 on C6 and C6 on C7. Thereis mild degenerative straightening of the normal cervical lordosis. Earlylower cervical spine disc space narrowing and minimal hypertrophic facetchanges are seen. Degenerative: Unremarkable. Bone: Unremarkable. Soft Tissue: Unremarkable. IMPRESSION 1. No specific evidence of ankylosing spondylitis is detected. 2. Very early lower cervical spine degenerative disc and facet disease. [id number] Tee MASON IMG DIAGNOSTIC IMAGI NG ORDERABLES * XR THORACIC SPINE 2 VIEWS (01/04/2023 10:20 EDT) Anatomical Region Laterality Modality Spine Computed Radiogr aphy 01/04/2023 11:3 4 EDT Impressions 01/04/2023 11:34 EDT 1. No thoracic spine bony abnormality detected. No imaging evidence of thoracic ankylosing spondylitis is seen. [id number] Narrative 01/04/2023 11:34 EDT INDICATION: Technique: New diagnosis of ? Bridging syndesmopytes;M46.1:Sacroiliitis ([facility]);Z79.899:High risk medication use;Z79.899:Encounter for long-term (current) use of medications;D84.821:Drug- induced immunodeficiency ([facility]);Z79.899:Drug-induced immunodeficiency ([facility]);M47.819:Spondyloarthropathy;M45.7:Ankylosing spondylitis of lumbosacral region ([facility]) TECHNIQUE: 2 views thoracic spine. COMPARISON: None. FINDINGS: Alignment: The spine is well aligned. Degenerative: Unremarkable. Bone: Unremarkable. No squaring of the vertebral bodies or syndesmophytes are seen. Soft Tissue: Unremarkable. Procedure Note Madhav Olguin MD - 01/04/2023 INDICATION: Technique: New diagnosis of ? Bridgingsyndesmopytes;M46.1:Sacroiliitis ([facility]);Z79.899:High risk medicationuse;Z79.899:Encounter for long-term (current) use ofmedications;D84.821:Drug-induced immunodeficiency(HCC-CMS);Z79.899:Drug-induced immunodeficiency(HCC-CMS);M47.819:Spondyloarthropathy;M45.7:Ankylosing spondylitis oflumbosacral region (HCC-CMS) TECHNIQUE: 2 views thoracic spine. COMPARISON: None. FINDINGS: Alignment: The spine is well aligned. Degenerative: Unremarkable. Bone: Unremarkable. No squaring of the vertebral bodies or syndesmophytesare seen. Soft Tissue: Unremarkable. IMPRESSION 1. No thoracic spine bony abnormality detected. No imaging evidence ofthoracic ankylosing spondylitis is seen. [id number] Tee MASON IMG DIAGNOSTIC IMAGI NG ORDERABLES * QUANTIFERON INTERPRETATION (PERFORMABLE) (01/04/2023 10:07 EDT) Quantiferon Interpretation Negative Negative 01/05/2023 14:11 EDT [facility] Comment:No interferon-gamma response to M. tuberculosis antigens was detected. ??Infection with M. tuberculosis is unlikely. A single negative result does not exclude infection with M. tuberculosis. ??In patients at high risk for M. tuberculosis infection, a second test should be considered. TB1 Ag minus Nil 0.00 IU/ml 01/06/20 14:11 EDT [facility] TB2 Ag minus Nil 0.04 IU/mL 01/06/20 14:11 [facility] Blood VENOUS BLOOD / Unknown Venipuncture / Unknown 01/04/2023 10:07 EDT 01/05/2023 14:09 EDT Narrative [facility] - 01/05/2023 14:11 EDT Results were obtained with the [employer] QuantiFERON-TB Gold Plus CLIA. New platform in use 02/09/2021 Tee MASON IMMUNOLOGY AND SEROL OGY ORDERABLES [facility] [address] [place] [address] * QUANTIFERON MITOGEN (PERFORMABLE) (01/04/2023 10:07 EDT) Blood VENOUS BLOOD / Unknown Venipuncture / Unknown 01/04/2023 10:07 EDT 01/04/2023 10:20 EDT Tee MASON IMMUNOLOGY AND SEROL OGY ORDERABLES Performing Organization Address City/[facility]/ZIP Co de Phone Number [facility] [address] [place] [address] * QUANTIFERON TB2 (PERFORMABLE) (01/04/2023 10:07 EDT) Blood VENOUS BLOOD / Unknown Venipuncture / Unknown 01/04/2023 10:07 EDT 01/04/2023 10:21 EDT Tee MASON IMMUNOLOGY AND SEROL OGY ORDERABLES Performing Organization Address City/[facility] Co de Phone Number [facility] [address] [place] [address] * QUANTIFERON TB1 (PERFORMABLE) (01/04/2023 10:07 EDT) Blood VENOUS BLOOD / Unknown Venipuncture / Unknown 01/04/2023 10:07 EDT 01/04/2023 10:20 EDT Tee MASON IMMUNOLOGY AND SEROL OGY ORDERABLES Performing Organization Address City/[facility] Co de Phone Number [facility] [address] [place] [address] * QUANTIFERON NIL (PERFORMABLE) (01/04/2023 10:07 EDT) Blood VENOUS BLOOD / Unknown Venipuncture / Unknown 01/04/2023 10:07 EDT 01/04/2023 10:20 EDT Tee MASON IMMUNOLOGY AND SEROL OGY ORDERABLES [facility] [address] [place] [address] * (ABNORMAL) SED RATE (01/04/2023 10:07 EDT) Sed Rate 18(H) 0 - 15 mm/hr 01/04/2023 10:34 EDT [facility] Blood VENOUS BLOOD / Unknown Venipuncture / Unknown 01/04/2023 10:07 EDT 01/04/2023 10:21 EDT Tee MASON HEMATOLOGY & PF4 ORD ERABLES Performing Organization Address City/[facility]/ZIP Co de Phone Number [facility] [address] [place] [address] * C REACTIVE PROTEIN (01/04/2023 10:07 EDT) [facility] C-Reactive Protein <5.0 <10.0 mg/L 01/04/2023 10:50 EDT [facility] Blood VENOUS BLOOD / Unknown Venipuncture / Unknown 01/04/2023 10:07 EDT 01/04/2023 10:22 EDT Tee MASON CHEMISTRY & BLOOD GA S ORDERABLES Performing Organization Address [facility] Co de Phone Number [facility] [address] [place] [phone] * CCP ANTIBODIES (01/04/2023 10:07 EDT) [facility] CCP Antibodies <2.5 <5.0 U/mL 01/05/2023 10:00 EDT [facility] Blood VENOUS BLOOD / Unknown Venipuncture / Unknown 01/04/2023 10:07 EDT 01/04/2023 10:22 EDT Tee MASON IMMUNOLOGY AND SEROL OGY ORDERABLES Performing Organization Address City/[facility] Co de Phone Number [facility] [address] [place] [address] * HEPATITIS C AB W REFLEX TO HCV RNA BY PCR (01/04/2023 10:07 EDT) [facility] Hep C Antibody Negative Negative 01/04/2023 11:35 EDT [facility] Blood VENOUS BLOOD / Unknown Venipuncture / Unknown 01/04/2023 10:07 EDT 01/04/2023 10:22 EDT Tee MASON CHEMISTRY & BLOOD GA S ORDERABLES Performing Organization Address City/[facility]/ZIP Co de Phone Number [facility] [address] [place] [address] * HEPATITIS B SURFACE ANTIGEN (01/04/2023 10:07 EDT) Hep B Surface Ag Negative Negative 01/05/20 11:17 EDT [facility] Comment: Expected values: Negative The results of this assay can be falsely lowered due to the consumption of Biotin. Blood VENOUS BLOOD / Unknown Venipuncture / Unknown 01/04/2023 10:07 EDT 01/04/2023 10:22 EDT Tee MASON CHEMISTRY & BLOOD GA S ORDERABLES Performing Organization Address [facility] Number [facility] [address] [place] [address] * HEPATITIS B SURFACE ANTIBODY (01/04/2023 10:07 EDT) Pathologist [facility] Hep B Surface Ab, Quantitative 7.2 See Note mIU/mL 01/04/2023 11:35 EDT [facility] Comment: Reference Range for Hep B Surface Ab, Quant: Positive: ?>= 12.00 mIU/mL Negative: ?< 5.00 mIU/mL Indeterminate: ??>= 5.00 mIU/mL and < 12.00 mIU/mL Blood VENOUS BLOOD / Unknown Venipuncture / Unknown 01/04/2023 10:07 EDT 01/04/2023 10:22 EDT Tee MASON CHEMISTRY & BLOOD GA S ORDERABLES Performing Organization Address [facility] Co de Phone Number [facility] [address] [place] [address] * HEPATITIS B CORE ANTIBODY (TOTAL) (01/04/2023 10:07 EDT) [facility] Hepatitis B Core Ab, Total Non-reacti ve Non-reacti ve 01/04/2023 11:35 [facility] Blood VENOUS BLOOD / Unknown Venipuncture / Unknown 01/04/2023 10:07 EDT 01/04/2023 10:22 EDT Tee MASON CHEMISTRY & BLOOD GA S ORDERABLES [facility] [address] [place] [address] * (ABNORMAL) COMPREHENSIVE METABOLIC PANEL (CMP) (01/04/2023 10:07 EDT) [facility] Sodium 139 136 - 145 mmol/L 01/04/2023 10:50 [facility] Potassium 5.3(H) 3.5 - 5.0 mmol/L 01/04/2023 10:50 [facility] Chloride 101 96 - 110 mmol/L 01/04/2023 10:50 [facility] CO2 Total 27 22 - 32 mmol/L 01/04/2023 10:50 [facility] Glucose 87 70 - 99 mg/dl 01/04/2023 10:50 [facility] BUN 16 10 - 26 mg/dL 01/04/2023 10:50 [facility] Creatinine 0.91 0.66 - 1.25 mg/dL 01/04/2023 10:50 [facility] eGFR 104 >60 mL/min/1.7 3m2 01/04/2023 10:50 [facility] Total Protein 8.2 6.3 - 8.2 g/dL 01/04/2023 10:50 [facility] Albumin 4.4 3.4 - 4.9 g/dL 01/04/2023 10:50 [facility] Alkaline Phosphatase 63 38 - 126 U/L 01/04/2023 10:50 [facility] AST 29 15 - 46 U/L 01/04/2023 10:50 [facility] ALT 26 <50 U/L 01/04/2023 10:50 [facility] Bilirubin, Total 0.4 <1.4 mg/dL 01/05/20 10:50 [facility] Calcium 9.9 8.5 - 10.5 mg/dL 01/04/2023 10:50 [facility] Albumin/Globulin Ratio 1.2 1.0 - 2.5 g/dL 01/04/2023 10:50 [facility] Anion Gap 11 5 - 14 mmol/L 01/04/2023 10:50 [facility] Blood VENOUS BLOOD / Unknown Venipuncture / Unknown 01/04/2023 10:07 EDT 01/04/2023 10:22 EDT Tee MASON CHEMISTRY & BLOOD GA S ORDERABLES Performing Organization Address City/State/[facility] Co de Phone Number [facility] [address] [place] [address] * (ABNORMAL) COMPLETE BLOOD COUNT AND DIFFERENTIAL (01/04/2023 10:07 EDT) WBC 6.36 4.00 - 10.40 K/cmm 01/04/2023 10:23 [facility] RBC 4.72 4.36 - 5.78 M/cmm 01/04/2023 10:23 [facility] Hemoglobin 13.7(L) 13.8 - 17.3 g/dL 01/04/2023 10:23 [facility] HCT 40.8 39.5 - 50.2 % 01/04/2023 10:23 [facility] MCV 86 81 - 95 fL 01/04/2023 10:23 [facility] MCH 29.0 27.6 - 33.0 pg 01/04/2023 10:23 [facility] MCHC 33.6 32.8 - 36.4 g/dL 01/04/2023 10:23 [facility] RDW-CV 12.7 <14.2 % 01/04/2023 10:23 [facility] RDW-SD 40.0 <46.0 fl 01/04/2023 10:23 [facility] PLT 317 141 - 377 K/cmm 01/04/2023 10:23 [facility] MPV 9.3(L) 9.5 - 12.7 fL 01/04/2023 10:23 [facility] % Neutrophils 57.3 % 01/04/2023 10:23 [facility] % Lymphocytes 30.7 % 01/04/2023 10:23 [facility] % Monocytes 9.7 % 01/04/2023 10:23 [facility] % Eosinophils 1.4 % 01/04/2023 10:23 [facility] % Basophils 0.6 % 01/04/2023 10:23 [facility] % Immature Grans 0.3 % 01/05/20 10:23 [facility] Absolute Neutrophils 3.64 2.20 - 8.85 K/cmm 01/04/2023 10:23 [facility] Absolute Lymphocytes 1.95 1.09 - 3.30 K/cmm 01/04/2023 10:23 [facility] Absolute Monocytes 0.62 0.10 - 0.80 K/cmm 01/04/2023 10:23 [facility] Absolute Eosinophils 0.09 0.03 - 0.61 K/cmm 01/04/2023 10:23 [facility] ABS Basophils 0.04 0.01 - 0.11 K/cmm 01/04/2023 10:23 [facility] Absolute Immature Grans 0.02 0.00 - 0.06 K/cmm 01/04/2023 10:23 [facility] Type of Differential: Auto 01/04/2023 10:23 [facility] Blood VENOUS BLOOD / Unknown Venipuncture / Unknown 01/04/2023 10:07 EDT 01/04/2023 10:21 EDT Tee MASON PACKAGES & DNA PROBE ORDERABLES [facility] [address] [place] [address] documented in this encounter Visit Diagnoses Diagnosis Sacroiliitis (HCC-CMS) Sacroiliitis, not elsewhere classified High risk medication use Encounter for long-term (current) use of other medications Encounter for long-term (current) use of medications Encounter for long-term (current) use of other medications Drug-induced immunodeficiency (HCC-CMS) Unspecified disorder of immune mechanism Spondyloarthropathy Spondylosis of unspecified site without mention of myelopathy Ankylosing spondylitis of lumbosacral region (HCC-CMS) Ankylosing spondylitis documented in this encounter Care Teams Machine Finisher Relationship Specialty Start Date End Date Mariia Burt MD [address] [place] [address] PCP - General Family Medicine - Primary Care 08/25/22 documented as of this encounter
--- OUTSIDE RECORDS SUMMARY | 2024-01-07 09:08 | XMS_ITS | Encounter Summary ---
Author Organization [facility] Address [address] [place] [address] Care Team Providers Care Wool Sorter Name Role Phone Mariia Burt MD Primary Care Provider [phone] Reason for Referral * Consult (Routine/Next Available) - Authorization Not Required Specialty Diagnoses / Procedures Referred By Vicki fregoso Referred To Contact Ophthalmology Diagnoses Vision changes Tee Narayanan MBBS [address] [address] [address] Referral ID Status Reason Start Date Expiration Date Visits Requested Visits Authorized [id number] Authorization Not Required Specialty Services Required 01/04/2023 1 1 Question Answer Reason for Request: Other, in comments field Specify which eye: Both Onset/Duration (new problem)? Visual changes. New diagnosis of SpA. ? Uveitis * Radiology Services (Routine/Next Available) - Authorization Not Required Specialty Diagnoses / Procedures Referred By Vicki fregoso Referred To Contact Diagnoses Sacroiliitis (HCC-CMS) High risk medication use Encounter for long-term (current) use of medications Drug-induced immunodeficiency (HCC-CMS) Spondyloarthropathy Ankylosing spondylitis of lumbosacral region (HCC-CMS) Procedures XR THORACIC SPINE 2 VIEWS Tee Narayanan MBBS [address] [address] [facility] Referral ID Status Reason Start Date Expiration Date Visits Requested Visits Authorized [id number] Authorization Not Required 01/04/2023 1 1 * PT/OT/ST (Routine/Next Available) - Authorization Not Required Specialty Diagnoses / Procedures Referred By Contac t Referred To Contact Rehab Therapies Diagnoses Sacroiliitis ([facility]) High risk medication use Encounter for long-term (current) use of medications Drug-induced immunodeficiency ([facility]) Tee Narayanan MBBS 111 [facility], [address] [place] [address] [facility] [address] [place] [id number] Referral ID Status Reason Start Date Expiration Date Visits Requested Visits Authorized [id number] Authorization Not Required Specialty Services Required 01/04/2023 1 1 Question Answer Reason for Request: Lower back pain in setting of anklolysing spondylitis Comments This referral may serve as a referral to occupational therapy if appropriate. Reason for Visit * Reason Comments New Patient Visit Sacroiliitis, concer n for ankylosing spondylitis. Going on years, gut and back pain;under control a little bit in last few months. Doing strategic exercises * Referral (Routine) - Authorization Not Required Specialty Diagnoses / Procedures Referred By Contac t Referred To Contact Diagnoses Sacroiliitis, not elsewhere classified ([facility]) Blood test positive for human leukocyte antigen (HLA) B27 Undifferentiated spondyloarthropathy Mariia Burt MD [address] [place] [phone] [facility] [address] [place] [address] Referral ID Status Reason Start Date Expiration Date Visits Requested Visits Authorized [id number] Authorization Not Required 1 1 Encounter Details Date Type Department Care Team (Late st Contact Info) Description 01/04/2023 8:45 EDT Office Visit [facility] Rheumatology [address] [place] [address] Tee Narayanan MBBS 111 [facility], [address] [place] [address] Sacroiliitis (HCC-CMS) (Primary Dx); High risk medication use; Encounter for long-term (current) use of medications; Drug-induced immunodeficiency (HCC-CMS); Spondyloarthropathy; Ankylosing spondylitis of lumbosacral region (HCC-CMS); Vision changes Social History Tobacco Use Types Packs/Day Years [...] Sign Reading Time Taken Comments Blood Pressure 126/74 01/04/2023 0839 EDT Pulse 72 01/04/2023 0839 EDT Temperature 36.1 ??C (97 ??F) 01/04/2023 0839 EDT Respiratory Rate - - Oxygen Saturation - - Inhaled Oxygen Concentration - - Weight 73 kg (161 lb) 01/04/2023 0839 EDT Height 182.9 cm (6') 01/04/2023 0839 EDT Body Mass Index 21.84 01/04/2023 0839 EDT documented in this encounter Functional Status Functional Status Response Date of Assess ment Are you deaf or do you have serious difficulty h earing? No 08/15/2021 documented as of this encounter Patient Instructions * Patient Instructions* Tee Narayanan MBBS - 01/04/2023 8:45 EDT Images from the original note were not included. - Lab work and x-rays - Home exercise. Physical therapy - Continue meloxicam 15mg daily as needed. Continuous NSAID use reported to slow radiographic progression. - Refer to ophthalmology SPONDYLOARTHRITIS (SPONDYLOARTHROPATHY) - Patient Fact Sheet CONDITION DESCRIPTION Spondyloarthritis, or spondyloarthropathy, is an inflammatory arthritis affecting the spine. In some patients, arm and leg joints, or the skin, intestines and eyes are affected too. Spondyloarthritisoften inflames the entheses, the sites where ligaments and tendons enter bone. Many patients progress to a degree of spinal fusion, or ankylosing spondylitis (). Spondyloarthritis more often affects males in their teens or 20s. It may run in families. Ankylosing spondylitis () is associated with the HLA-B27 gene. Alaskan or Siberian Eskimos and Samis have higher frequency of HLA-B27 and more likely to have . Up to 30 genes may cause types of spondyloarthritis. Psoriatic arthritis, reactive arthritis and enteropathic arthritis associated with inflammatory bowel disease, such as Crohn's disease and ulcerative colitis, are types of spondyloarthritis. SIGNS/SYMPTOMS Early spondyloarthritis may present as inflammation that causes pain and stiffness, often in the spine. Low back pain is the most common symptom. Some spondyloarthropathies may affect the hands, feet, arms or legs. Later signs may be bone destruction that deforms the spine and lowers function in the hips or shoulders. Patients may have pain, fatigue or stiffness that is continuous or comes and goes. A course instructor diagnoses spondyloarthritis with a medical history and physical examination. Symptoms may suggest spondyloarthritis. X-rays of the sacroiliac joints in the pelvis may show inflammation, or sacroiliitis. In early spondyloarthritis, magnetic resonance imaging (MRI) may show joint changes before they can be seen on an x-ray. Blood tests for the HLA-B27 gene do not confirm spondyloarthritis. Many people with this gene neverdevelop disease. In the end, the doctor's judgment, based on clinical signs, is most important. Patients with a diagnosis of spondyloarthritis who experience a severe red, painful eye need to see an O phthalmologist as uveitis (eye inflammation) can be associated with spondyloarthritis. COMMON TREATMENTS Spondyloarthritis patients should get physical therapy and do joint-directed exercises to promote spinal extension and mobility. First-line medications for symptom relief are nonsteroidal anti-inflammatory drugs (NSAIDs), such as ibuprofen (Advil, Motrin), naproxen (Aleve, Naprosyn), indomethacin (Indocin) or meloxicam (Mobic). For localized joint swelling, corticosteroid injections into the joint or tendon sheath are quicklyeffective. If patients do not respond, disease-modifying antirheumatic drugs (DMARDs), such as sulfasalazine (Azulfidine), may be used to relieve symptoms and prevent joint damage. Oral corticosteroids are not recommended. Antibiotics are used to treat reactive arthritis only. Biologic medications including TNF-alpha and IL-17 blockers may treat spinal or peripheral symptoms. The TNF inhibitors adalimumab (Humira), etanercept (Enbrel), infliximab (Remicade), certolizumab (Cimzia) and golimumab (Simponi), as well as the IL-17 blockers secukinumab (Cosentyx) and ixekizumab(Taltz), are approved for treating ankylosing spondylitis. Surgery, such as total hip replacement, may be helpful for some patients. Spinal surgery is rarely needed, except to treat traumatic fractures or excess flexion deformities of the neck, where the patient cannot straighten the neck. CARE/MANAGEMENT TIPS With newer treatment options, most people with spondyloarthritis lead normal, productive lives and have a normal lifespan. People with spondyloarthritis should exercise frequently to maintain joint and heart health. People with spondyloarthritis who smoke should quit or get help to do so. Smoking aggravates spondyloarthritis and may speed up the rate of spinal fusion. Patient support groups for people with spondyloarthritis may be helpful and informative. The Spondylitis Association of [place], the National Psoriasis Foundation and the Arthritis Foundation have support groups in many communities or online ?? 2019 [employer] Adalimumab (Humira) Description Adalimumab is an anti-tumor necrosis factor (anti-TNF) medication. Anti-TNF drugs are a class of drugs that are used worldwide to treat inflammatory conditions such as rheumatoid arthritis (RA), psoriatic arthritis, juvenile arthritis, inflammatory bowel disease (Crohn???s and ulcerative colitis), a nkylosing spondylitis and psoriasis. These drugs are able to reduce inflammation and stop disease progression. Fast Facts Anti-TNF agents target an inflammation-causing substance called Tumor Necrosis Factor (TNF). They can alter a disease???s effect on the body by controlling inflammation in the joints, gastrointestinal tract and skin. Patients should talk to their doctor before getting any vaccinations while using an anti-TNF drug. Uses There are five anti-TNF drugs that have been approved by the U.S. Food and Drug Administration for the treatment of rheumatic diseases. To decrease side effects and costs, most patients with mild or moderate disease may be treated with methotrexate before adding or switching to an anti-TNF agent. These agents can be used by themselves or in combination with other medications such as prednisone, methotrexate, hydroxychloroquine, leflunomide or sulfasalazine. How it works TNF is a chemical produced by the immune system that causes inflammation in the body. In healthy individuals, excess TNF in the blood is blocked naturally, but in those who have rheumatic conditions,higher levels of TNF in the blood lead to more inflammation and persistent symptoms. Dosing The starting doses for RA are shown in Table 1. Similar doses are used for other rheumatic conditions. Anti-TNF medications may be given by injection under the skin or by vein. There are pamphlets and videos that can teach you how to give yourself an injection under the skin. Physicians, nurses, and pharmacists can also teach you how to give the injection. The medicine can be injected into the thigh or abdomen. The site of injection should be rotated so the same site is not used multiple times. In the case of infliximab and golimumab, the infusions areadministered at a doctor???s office or at an infusion center. These treatments take up to 3 hours. TABLE 1: Comparison of anti-TNF drugs in RA Drug Usual Dosing Regimen Adalimumab (Humira ??) Initially: 40 mg every other week as a self-administered subcutaneous injection. Maintenance: Same Certolizumab pegol (Cimzia ??) Initially: 400 mg on week 0, 2 and 4 as a self- administered subcutaneous injection. Maintenance: 200 mg every other week. Note: Each 400 mg dose should be administered as 2 injections of 200 mg each. Etanercept (Enbrel ??) Initially: 50 mg once a week or 25 mg twice a week as a self- administered subcutaneous injection. Maintenance: Same Golimumab (Simponi ??) Initially: 50 mg once per month as a self-administered subcutaneous injection. Maintenance: Same Golimumab (Simponi Aria ??) Initially: Given at the clinic or at an infusion center as an intravenous infusion (IV) at a dose of 2 mg/kg (according to body weight) at weeks 0 and 4. Maintenance: IV infusions every 8 weeks. Infliximab (Remicade ??) Initially: Given at the clinic or at an infusion center as an intravenous infusion (IV) at a dose of 3-5 mg/kg (according to body weight) at weeks 0, 2, and 6. Maintenance: IV infusions every 4-8 weeks. Dose may be increased to 5-10 mg/kg. Time to effect The time that it takes for the medication to have an effect may vary by patient. Most patients havereported a change in their symptoms after 2 or 3 doses. Side effects The most common side effect seen with the injectable drugs are skin reactions, commonly referred toas ???injection site reactions.?? The patients usually complain of a localized rash with burning or itching. These reactions can last up to a week. Infliximab has been associated with a severe allergic reaction with swelling of the lips, difficulty breathing and low blood pressure. The most significant side effect is an increased risk for all types of infections, including tuberculosis (TB) and fungal infections. Some of these infections may be severe. Patients should be testedfor TB before starting therapy. The usual way of testing is with a skin test, but a blood test is also available. Hepatitis B testing should be done because unrecognized hepatitis B infection may worsen during treatment. Anti-TNF medications should be stopped if the patient has high fever or is being treated with antibiotics for an infection. Once the medication is stopped, it should not be restarted until the patient has discussed it with his or her doctor. Long-term use of anti-TNF agents may increase the risk of cancers such as lymphoma and skin cancer.There are rare neurologic complications from the use of these medications. People who have a history of multiple sclerosis should not use them. People with significant heart failure should not be on anti-TNF therapy because of their heart disease could worsen. Information to discuss with health care providers These medications are expensive (more than $10,000 per year), but they are covered by most health care insurance plans. Ask your doctor about prescription assistance plans that can help you to get the medication at a lower evans or free of charge. Patients should talk to their doctors before getting any vaccines. Using these medications may makethe vaccination less effective. Refer to the package insert for more information. Website http://www.rheumatology.org/I-Am-A/Patient-Caregiver/Treatments/Anti-TNF Updated August 2014 by Arlene Rosenthal??MD Sumit, and reviewed by the [employer] Communications and Marketing Committee. This information is provided for general education only. Individuals should consult a qualified health care provider for professional medical advice, diagnosis and treatment of a medical or health condition. ?? 2014 [employer] * Attachments The following attachments cannot be sent through Care Everywhere. * Low Back Pain: Exercises (Swedish) documented in this encounter Progress Notes * Tee Narayanan MBBS - 01/04/2023 0845 EDT Images from the original note were not included. [facility] Rheumatology and Clinical Immunology Initial Patient Visit Chief Complaint: Chief Complaint Patient presents with ??? New Patient Visit Sacroiliitis, concern for ankylosing spondylitis. Going on years, gut and back pain;under control alittle bit in last few months. Doing strategic exercises Patient ID: Jayy Christianson Date of Service: 01/04/2023 Patient age: 47 y.o. Patient gender: male Subjective / HPI: Jayy Christianson is an 47-year-old gentleman with a background of tinnitus who presented to [facility] rheumatology clinic for a new patient assessment. Mr Christianson presented to their PCP October 2022 with ongoing lower back pain [worst in the morning]. Symptoms associated with abdominal bloating. On examination left paraspinal tenderness in the lumbar region Labs remarkable for HLA-B27 positive. MRI identified bilateral asymmetric sacroiliitis. Patient referred to rheumatology for evaluation On assessment today, Mr Christianson endorses an approximately 7 - 8 year of intermittent arthralgia principally localized to: - Neck: Yes - Low back: Yes, Atraumatic. Constant - Hips: B/l - Knees: B/l - Ankles: B/l (R > L) - Feet/ toes: Right mid-foot pain Symptoms associated with morning stiffness. Denies transient joint swelling, warmth or erythema. Back pain interrupt sleep. Symptoms exacerbated by immobility and relieved by activity / meloxicam. Pain is worst at the beginning AND end of the day. No psoriasis, enthesitis or urethritis. Relays longstanding abdominal pain (intermittent umbilical / LLQ pain, bloating and constipation). Normal colonoscopy 2017 [data not available]. Intermittent blurred vision and painless loss of peripheral vision (told historically that this was a migrainous aura and no known history of uveitis). Review of Systems: Review of Systems: A complete 10 point ROS was performed and pertinent positive and negative findings listed in HPI, otherwise negative. Family History: - Denies family history of inflammatory arthritis or autoimmune conditions. Social History: - Grew up in [place]. 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 - Lives with partner. - Exercise: Active (skiing / riding motorcycle) - Nonsmoker. 6-drinks per week (spirits). Cannabis. Current Outpatient Medications Medication ??? cetirizine (ZYRTEC) 10 mg tablet ??? dicyclomine (BENTYL) 20 mg tablet ??? meloxicam (MOBIC) 15 mg tablet ??? MULTIVITAMIN ORAL ??? psyllium husk (FIBER, PSYLLIUM HUSK,) 0.4 gram capsule No current facility-administered medications for this visit. No Known Allergies PMH PSH Past Medical History: Diagnosis Date ??? Dyslipidemia ??? Low back pain History reviewed. No pertinent surgical history. Social History Family history Social History Tobacco Use ??? Smoking status: Never ??? Smokeless tobacco: Never Substance Use Topics ??? Alcohol use: Yes Alcohol/week: 1.0 standard drink of alcohol Types: 1 Cans of beer per week History reviewed. No pertinent family history. Objective: BP 126/74 (BP Cuff Location: Right arm, BP Cuff Sizes: Adult, regular) Pulse 72 Temp 36.1 ??C (97 ??F) Ht 182.9 cm (72) Wt 73 kg (161 lb) BMI 21.84 kg/m?? Body mass index is 21.84 kg/m??. General: No acute distress. Alert, fully oriented. HEENT: Conjunctivae/corneas clear. Pupils equal, Sclerae anicteric. Mucus membranes moist; oropharynx clear. Neck symmetrical, trachea midline Lungs: Normal expansion. Clear to auscultation bilaterally with no crackles, crepitations or wheeze. Heart: Regular rate and rhythm, I + II present with no murmur Abdomen: Soft, non-tender, non-distended. No organomegaly. Bowel sounds present. Extremities: Extremities without cyanosis or edema. Skin: [...] joint bilaterally. Normal range of movement. Guzman's 3cm (abnormal) Occiput test 0cm Workup: I have personally reviewed and the imaging / lab results Labs: - Reviewed Imaging: - (08/25/22) XR right hip: 1. No right hip osseous abnormality is detected. - (08/25/22) XR lumbar spine: 1. Mild lumbar spondylosis. 2. No significant spondylolisthesis. - (10/12/22) MR SI joints: Assessment & Plan: SpA: 7 - 8 year history of neck, lower back and hip arthralgia. Intermittent knee, ankle and right mid-foot arthralgia. Symptoms associated with prolonged morning stiffness. Additionally describes abdominal pain (umbilical / LLQ pain, bloating, constipation / diarrhea without hematochezia or melena) and painless vision changes. Denies transient joint swelling, psoriasis, enthesitis, dactylitis orurethritis. On examination Guzman's 3cm (abnormal) and Occiput test 0cm. Labs remarkable for HLA-B27 positive. MRI identified bilateral asymmetric sacroiliitis. Impression: SpA (ankylosing spondylitis). Would consider IBD-associated arthritis given abdominal pain however colonoscopy normal. Visionchanges raise suspicion for uveitis. HLA-B27 positivity is associated with a propensity for axial disease (spondylitis) and uveitis. HLA- B27 positive individual have an earlier onset of spinal symptoms, less delay in diagnosis and greater axial inflammation on imaging. - Order CBC, CMP, ESR / CRP, RF, CCP, lyme, hepatitis serologies and quantiferon - XR C- and C-spine - Home exercise. Physical therapy - Continue meloxicam 15mg daily as needed. Continuous NSAID use reported to slow radiographic progression. - Information provided on adalimumab via AVS. - SSZ has been shown on meta-analysis to be efficacious but compared to placebo but minimal improvement in quality of life. Mixed results with methotrexate. - Refer to ophthalmology ? Uveitis - Consider repeat colonoscopy of persistent abdominal pain Follow up in 3-months MARLON Sutherland, 01/04/2023 9:42 I spent a total of 60 minutes on the date of this encounter meeting with the patient and reviewing documentation/coordinating care as described in the above note. No procedures were performed at the time of the visit. documented in this encounter Miscellaneous Notes * Result Encounter Note - Tee Narayanan MBBS - 01/04/2023 0845 EDT Results quicknote: Lyme western blot negative. No evidence of lyme disease documented in this encounter Plan of Treatment Upcoming Encounters Date Type Department Care Team (Late st Contact Info) Description 04/10/2024 10:15 EST Office Visit [facility] Rheumatology [address] [place] [address] Tee Narayanan MBBS [address] [place] [address], [facility] [address] [place] [address] Scheduled Referrals Name Type Priority Associated Diagnoses Orde r Schedule AMB CONS/FOLLOW UP PHYSICAL THERAPY - [facility] Outpatient Referral Routine/Next Available Sacroiliitis ([facility]) High risk medication use Encounter for long-term (current) use of medications Drug-induced immunodeficiency (HCC-CMS) Expected: 01/11/2023 (Approximate) , Expires: 01/05/2024 AMB CONS/FOLLOW UP OPHTHALMOLOGY Outpatient Referral Routine/Next Available Vision changes Expected: 01/11/2023 (Approximate) , Expires: 01/05/2024 documented as of this encounter Procedures Procedure Name Priority Date/Time Associated Diagnosis Comments LYME AB SCREEN, IGG AND IGM Routine 01/04/2023 10:07 EDT Sacroiliitis ([facility]) High risk medication use Encounter for long-term (current) use of medications Drug-induced immunodeficiency ([facility]) LYME ABS IGG IGM WESTERN BLOT Today 01/04/2023 10:07 EDT Sacroiliitis ([facility]) High risk medication use Encounter for long-term (current) use of medications Drug-induced immunodeficiency ([facility]) RHEUMATOID SCREEN/TITRE Routine 01/04/2023 10:07 EDT Sacroiliitis ([facility]) High risk medication use Encounter for long-term (current) use of medications Drug-induced immunodeficiency ([facility]) documented in this encounter Results * XR THORACIC SPINE 2 VIEWS (01/04/2023 10:20 EDT) Anatomical Region Laterality Modality Spine Computed Radiogr aphy 01/04/2023 11:3 4 EDT Impressions 01/04/2023 11:34 EDT 1. No thoracic spine bony abnormality detected. No imaging evidence of thoracic ankylosing spondylitis is seen. [id number] Narrative 01/04/2023 11:34 EDT INDICATION: Technique: New diagnosis of ? Bridging syndesmopytes;M46.1:Sacroiliitis ([facility]);Z79.899:High risk medication use;Z79.899:Encounter for long-term (current) use of medications;D84.821:Drug- induced immunodeficiency (HCC-CMS);Z79.899:Drug-induced immunodeficiency (HCC-CMS);M47.819:Spondyloarthropathy;M45.7:Ankylosing spondylitis of lumbosacral region ([facility]) TECHNIQUE: 2 views thoracic spine. COMPARISON: None. FINDINGS: Alignment: The spine is well aligned. Degenerative: Unremarkable. Bone: Unremarkable. No squaring of the vertebral bodies or syndesmophytes are seen. Soft Tissue: Unremarkable. Procedure Note Madhav Olguin MD - 01/04/2023 INDICATION: Technique: New diagnosis of ? Bridgingsyndesmopytes;M46.1:Sacroiliitis ([facility]);Z79.899:High risk medicationuse;Z79.899:Encounter for long-term (current) use ofmedications;D84.821:Drug-induced immunodeficiency([facility]);Z79.899:Drug-induced immunodeficiency([facility]);M47.819:Spondyloarthropathy;M45.7:Ankylosing spondylitis oflumbosacral region ([facility]) TECHNIQUE: 2 views thoracic spine. COMPARISON: None. FINDINGS: Alignment: The spine is well aligned. Degenerative: Unremarkable. Bone: Unremarkable. No squaring of the vertebral bodies or syndesmophytesare seen. Soft Tissue: Unremarkable. IMPRESSION 1. No thoracic spine bony abnormality detected. No imaging evidence ofthoracic ankylosing spondylitis is seen. [id number] Tee MASON IMG DIAGNOSTIC IMAGI NG ORDERABLES * LYME ABS IGG IGM WESTERN BLOT (01/04/2023 10:07 EDT) IGG IMMUNOBLOT Negative Negative 01/06/2023 15:08 EDT [facility] IGG DETECTED AGAINST: None kDa 01/06/2023 15:08 T [facility] IGM IMMUNOBLOT Negative Negative 01/06/2023 15:08 T [facility] IGM DETECTED AGAINST: p41 kDa 01/06/2023 15:08 T [facility] INTERPRETATION LYME DISEASE SEE NOTE 01/06/2023 15:08 EDT [facility] Comment: Specific serologic response to B. burgdorferi infection is not detected, but cannot rule out early infection during which low or undetectable antibody levels to B. burgdorferi may be present. ??If clinically indicated, a new serum specimen should be submitted in 7-14 days. ADDITIONAL INFORMATION Per CDC criteria, the Lyme IgG Immunoblot is interpreted as positive if IgG-class antibodies are detected to >=5 B. burgdorferi proteins, and the Lyme IgM Immunoblot is interpreted as positive if IgM-class antibodies are detected to >=2 B. burgdorferi proteins. Immunoblot patterns not meeting these criteria should not be interpreted as positive. Epitopes from certain B. burgdorferi proteins (e.g., p41) are conserved across other bacteria, which may lead to the detection of IgM- and/or IgG-class antibodies on the Lyme disease immunoblots in patients without Lyme disease. Immunoblot should only be ordered on specimens that are positive or equivocal by a FDA-licensed Lyme disease antibody screening test (e.g., EIA). Results of the Lyme IgM immunoblot should not be considered in patients with >= 30 days of symptoms. Test Performed by: [facility] [address] [place] [address] System Support Analyst: Desean Bloom M.D. Ph.D.; CLIA# [id number] Blood VENOUS BLOOD / Unknown Venipuncture / Unknown 01/04/2023 10:07 EDT 01/04/2023 13:54 EDT Tee MASON HEMATOLOGY & PF4 ORD ERABLES [facility] [address] [place] [address] * (ABNORMAL) SED RATE (01/04/2023 10:07 EDT) [facility] Sed Rate 18(H) 0 - 15 mm/hr 01/04/2023 10:34 EDT [facility] Blood VENOUS BLOOD / Unknown Venipuncture / Unknown 01/04/2023 10:07 EDT 01/04/2023 10:21 EDT Tee MASON HEMATOLOGY & PF4 ORD ERABLES [facility] [address] [place] [address] * C REACTIVE PROTEIN (01/04/2023 10:07 EDT) [facility] C-Reactive Protein <5.0 <10.0 mg/L 01/04/2023 10:50 EDT [facility] Blood VENOUS BLOOD / Unknown Venipuncture / Unknown 01/04/2023 10:07 EDT 01/04/2023 10:22 EDT Tee MASON CHEMISTRY & BLOOD GA S ORDERABLES Performing Organization Address [facility]/ZIP Co de Phone Number [facility] [address] [place] [address] * (ABNORMAL) LYME AB SCREEN, IGG AND IGM (01/04/2023 10:07 EDT) Pathologist [facility] Lyme Antibody, IgG Negative Negative 01/04/2023 13:54 EDT [facility] Lyme Antibody, IgM Equivocal(A) Negative 01/04/2023 13:54 EDT [facility] Blood VENOUS BLOOD / Unknown Venipuncture / Unknown 01/04/2023 10:07 EDT 01/04/2023 10:22 EDT Narrative [facility] - 01/04/2023 13:54 EDT NOTE: PRESUMPTIVE POSITIVE: Lyme Immunoblot confirmation testing has been added by reflex. Tee MASON IMMUNOLOGY AND SEROL OGY ORDERABLES Performing Organization Address [facility]/ZIP Co de Phone Number [facility] [address] [place] [address] * RHEUMATOID SCREEN/TITRE (01/04/2023 10:07 EDT) Pathologist [facility] Rheumatoid Factor <8.6 <12.0 IU/mL 01/04/2023 21:11 EDT [facility] Blood VENOUS BLOOD / Unknown Venipuncture / Unknown 01/04/2023 10:07 EDT 01/04/2023 10:22 EDT Tee MASON CHEMISTRY & BLOOD GA S ORDERABLES [facility] [address] [place] [address] * CCP ANTIBODIES (01/04/2023 10:07 EDT) Pathologist [facility] CCP Antibodies <2.5 <5.0 U/mL 01/05/2023 10:00 EDT [facility] Blood VENOUS BLOOD / Unknown Venipuncture / Unknown 01/04/2023 10:07 EDT 01/04/2023 10:22 EDT Tee MASON IMMUNOLOGY AND SEROL OGY ORDERABLES [facility] [address] [place] [address] * HEPATITIS C AB W REFLEX TO HCV RNA BY PCR (01/04/2023 10:07 EDT) Hep C Antibody Negative Negative 01/04/2023 11:35 EDT [facility] Blood VENOUS BLOOD / Unknown Venipuncture / Unknown 01/04/2023 10:07 EDT 01/04/2023 10:22 EDT Tee MASON CHEMISTRY & BLOOD GA S ORDERABLES Performing Organization Address [facility]/ZIP Co de Phone Number [facility] [address] [place] [address] * HEPATITIS B SURFACE ANTIGEN (01/04/2023 10:07 EDT) Pathologist [facility] Hep B Surface Ag Negative Negative 01/05/20 11:17 EDT [facility] Comment: Expected values: Negative The results of this assay can be falsely lowered due to the consumption of Biotin. Blood VENOUS BLOOD / Unknown Venipuncture / Unknown 01/04/2023 10:07 EDT 01/04/2023 10:22 EDT Tee MASON CHEMISTRY & BLOOD GA S ORDERABLES Performing Organization Address [facility]/ZIP Co de Phone Number [facility] [address] [place] [address] * HEPATITIS B SURFACE ANTIBODY (01/04/2023 10:07 EDT) Hep B Surface Ab, Quantitative 7.2 See Note mIU/mL 01/04/2023 11:35 EDT [facility] Comment: Reference Range for Hep B Surface Ab, Quant: Positive: ?>= 12.00 mIU/mL Negative: ?< 5.00 mIU/mL Indeterminate: ??>= 5.00 mIU/mL and < 12.00 mIU/mL Blood VENOUS BLOOD / Unknown Venipuncture / Unknown 01/04/2023 10:07 EDT 01/04/2023 10:22 EDT Tee EWING CHEMISTRY & BLOOD GA S ORDERABLES Performing Organization Address [facility] Co de Phone Number [facility] [address] [place] [address] * HEPATITIS B CORE ANTIBODY (TOTAL) (01/04/2023 10:07 EDT) [facility] Hepatitis B Core Ab, Total Non-reacti ve Non-reacti ve 01/04/2023 11:35 EDT [facility] Blood VENOUS BLOOD / Unknown Venipuncture / Unknown 01/04/2023 10:07 EDT 01/04/2023 10:22 EDT Tee EWING CHEMISTRY & BLOOD GA S ORDERABLES Performing Organization Address [facility] Co de Phone Number [facility] [address] [place] [address] * (ABNORMAL) COMPREHENSIVE METABOLIC PANEL (CMP) (01/04/2023 10:07 EDT) Pathologist [facility] Sodium 139 136 - 145 mmol/L 01/04/2023 10:50 EDT [facility] Potassium 5.3(H) 3.5 - 5.0 mmol/L 01/04/2023 10:[facility] Chloride 101 96 - 110 mmol/L 01/04/2023 10:[facility] CO2 Total 27 22 - 32 mmol/L 01/04/2023 10:50 [facility] Glucose 87 70 - 99 mg/dl 01/04/2023 10:50 [facility] BUN 16 10 - 26 mg/dL 01/04/2023 10:50 [facility] Creatinine 0.91 0.66 - 1.25 mg/dL 01/04/2023 10:50 [facility] eGFR 104 >60 mL/min/1.7 3m2 01/04/2023 10:50 [facility] Total Protein 8.2 6.3 - 8.2 g/dL 01/04/2023 10:50 [facility] Albumin 4.4 3.4 - 4.9 g/dL 01/04/2023 10:50 [facility] Alkaline Phosphatase 63 38 - 126 U/L 01/04/2023 10:50 [facility] AST 29 15 - 46 U/L 01/04/2023 10:50 [facility] ALT 26 <50 U/L 01/04/2023 10:50 [facility] Bilirubin, Total 0.4 <1.4 mg/dL 01/05/20 10:50 [facility] Calcium 9.9 8.5 - 10.5 mg/dL 01/04/2023 10:50 [facility] Albumin/Globulin Ratio 1.2 1.0 - 2.5 g/dL 01/04/2023 10:50 [facility] Anion Gap 11 5 - 14 mmol/L 01/04/2023 10:50 [facility] Blood VENOUS BLOOD / Unknown Venipuncture / Unknown 01/04/2023 10:07 EDT 01/04/2023 10:22 EDT Tee MASON CHEMISTRY & BLOOD GA S ORDERABLES [facility] [address] [place] [address] * (ABNORMAL) COMPLETE BLOOD COUNT AND DIFFERENTIAL (01/04/2023 10:07 EDT) WBC 6.36 4.00 - 10.40 K/cmm 01/04/2023 10:23 T [facility] RBC 4.72 4.36 - 5.78 M/cmm 01/04/2023 10:23 [facility] Hemoglobin 13.7(L) 13.8 - 17.3 g/dL 01/04/2023 10:23 [facility] HCT 40.8 39.5 - 50.2 % 01/04/2023 10:23 [facility] MCV 86 81 - 95 fL 01/04/2023 10:23 [facility] MCH 29.0 27.6 - 33.0 pg 01/04/2023 10:23 [facility] MCHC 33.6 32.8 - 36.4 g/dL 01/04/2023 10:23 [facility] RDW-CV 12.7 <14.2 % 01/04/2023 10:23 [facility] RDW-SD 40.0 <46.0 fl 01/04/2023 10:23 [facility] PLT 317 141 - 377 K/cmm 01/04/2023 10:23 [facility] MPV 9.3(L) 9.5 - 12.7 fL 01/04/2023 10:23 [facility] % Neutrophils 57.3 % 01/04/2023 10:23 [facility] % Lymphocytes 30.7 % 01/04/2023 10:23 [facility] % Monocytes 9.7 % 01/04/2023 10:23 [facility] % Eosinophils 1.4 % 01/04/2023 10:23 [facility] % Basophils 0.6 % 01/04/2023 10:23 [facility] % Immature Grans 0.3 % 01/05/20 10:23 [facility] Absolute Neutrophils 3.64 2.20 - 8.85 K/cmm 01/04/2023 10:23 [facility] Absolute Lymphocytes 1.95 1.09 - 3.30 K/cmm 01/04/2023 10:23 [facility] Absolute Monocytes 0.62 0.10 - 0.80 K/cmm 01/04/2023 10:23 EDT [facility] Absolute Eosinophils 0.09 0.03 - 0.61 K/cmm 01/04/2023 10:23 EDT [facility] ABS Basophils 0.04 0.01 - 0.11 K/cmm 01/04/2023 10:23 [facility] Absolute Immature Grans 0.02 0.00 - 0.06 K/cmm 01/04/2023 10:23 EDT [facility] Type of Differential: Auto 01/04/2023 10:23 EDT [facility] Blood VENOUS BLOOD / Unknown Venipuncture / Unknown 01/04/2023 10:07 EDT 01/04/2023 10:21 EDT Tee MASON PACKAGES & DNA PROBE ORDERABLES Performing Organization Address City/State/[facility] Co de Phone Number [facility] [address] [place] [address] documented in this encounter Visit Diagnoses Diagnosis Sacroiliitis ([facility])- Primary Sacroiliitis, not elsewhere classified High risk medication use Encounter for long-term (current) use of other medications Encounter for long-term (current) use of medications Encounter for long-term (current) use of other medications Drug-induced immunodeficiency ([facility]) Unspecified disorder of immune mechanism Spondyloarthropathy Spondylosis of unspecified site without mention of myelopathy Ankylosing spondylitis of lumbosacral region ([facility]) Ankylosing spondylitis Vision changes Unspecified visual disturbance Sacroiliitis ([facility]) Sacroiliitis, not elsewhere classified High [...] spondylitis documented in this encounter Care Teams Wool Sorter Relationship Specialty Start Date End Date Mariia Burt MD [address] [place] [phone] PCP - General Family Medicine - Primary Care 08/25/22 documented as of this encounter
--- OUTSIDE RECORDS SUMMARY | 2024-01-07 09:08 | XMS_ITS | Encounter Summary ---
Author Organization [facility] Address [address] [place] [address] Care Team Providers Care Account Development Associate Name Role Phone Mariia Burt MD Primary Care Provider [phone] Encounter Details Date Type Department Care Team (Late st Contact Info) Description 09/05/2022 Orders Only [facility] MRI [address] [place] [address] Brittnee Underwood Social History Tobacco Use Types Packs/Day Years [...] Info) Description 04/10/2024 10:15 EST Office Visit [facility] Rheumatology [address] [place] [address] Tee Narayanan MBBS [address] [facility], [facility] [address] [place] [phone] documented as of this encounter Visit Diagnoses Not on filedocumented in this encounter Care Teams Account Development Associate Relationship Specialty Start Date End Date Mariia Burt MD [address] [place] [phone] PCP - General Family Medicine - Primary Care 08/25/22 documented as of this encounter
--- OUTSIDE RECORDS SUMMARY | 2024-01-07 09:08 | XMS_ITS | Encounter Summary ---
Author Organization [facility] Address [address] [place] [address] Care Team Providers Care Knot Cutter Name Role Phone Unknown, Provider Primary Care Provider Encounter Details Date Type Department Care Team (Late st Contact Info) Description 08/01/2016 Historical Results Only [facility] [place] [address] Yared Martinez MD [address] [place] [address] [address] [place] [address] Social History Tobacco Use Types Packs/Day Years Used Date Smoking Tobacco: Never Assessed Sex and Gender Information Value Date Recorded Sex Assigned at Not on file Gender Identity Male 08/15/2021 15:14 EDT Sexual Orientation Not on file documented as of this encounter Plan of Treatment Upcoming Encounters Date Type Department Care Team (Late st Contact Info) Description 04/10/2024 10:15 EST Office Visit [facility] Rheumatology [address] [place] [address] Tee Narayanan MBBS [address] [facility], [address] [place] [address] documented as of this encounter Procedures Procedure Name Priority Date/Time Associated Diagnosis Comments SURGICAL PATHOLOGY Routine 08/01/2016 documented in this encounter Results * SURGICAL PATHOLOGY (08/01/2016) 08/01/2016 08/01/2016 16: 15 EST Narrative [facility] - 08/03/2016 10:43 EST ----- ------- Name: VALERIA CHRISTIANSON ? : 73 ?Age/Sex: 43/M ?Unit#: [id number] ? Loc: END ? Status: DEP CLI ?? Reg Date: 08/01/16 ? Pt.Phone Number: ? ----- ------- Specimen: [id number] ?STATUS: SOUT ?Spec Date:08/01/16 ? Physician Copies: ?Yared Martinez MD ? Tissues: A ?? Endoscopy specimen (RANDOM COLON) ?Meenu Vyas ?? CPT: 35083 ?? Units: ??1 ?FINAL DIAGNOSIS ? COLON, RANDOM BIOPSY; ? -Unremarkable colonic mucosal fragments with no evident colitis ?-Scattered intramucosal lymphoid aggregates are noted, but otherwise ?normal glandular architecture ?-No evident increased inflammatory infiltrate of lamina propria ?-No evident epithelial lymphocytosis or increased thickness of submucosal ?collagen layer ?-No evident atypia or malignancy ? GROSS DESCRIPTION ? Received in formalin labeled with the patient's name and Random colon bx's ? are six mucosal tissue fragments ranging in size from 0.3 to 0.6 cm. es 2 NM ?? PREOP DX/CLINICAL HISTORY ?DIARRHEA Signed ____(signature on file)____ Staci Acosta M.D. 08/03/16 ? By the signature above, the attending physician certifies that he/she has personally conducted a gross and/or microscopic examination of the described specimens and rendered or confirmed the above diagnosis. Test Performed by [facility], [address] [place] [address] Power Transmission Engineer: Char Dhaliwal MD PHD ----- ------- Yared Martinez MD PATHOLOGY ORDERABLES [facility] documented in this encounter Visit Diagnoses Not on filedocumented in this encounter Care Teams Knot Cutter Relationship Specialty Start Date End Date Unknown, Provider, PCP - General 05/25/16 08/24/22 documented as of this encounter
--- OUTSIDE RECORDS SUMMARY | 2024-01-07 09:08 | XMS_ITS | Encounter Summary ---
Author Organization [facility] [place] Address [address] [place] [address] Care Team Providers Care Criminal Justice Social Worker Name Role Phone Unknown, Provider Primary Care Provider Reason for Visit * Reason Comments Sinus Problems Headache Tinnitus Encounter Details Date Type Department Care Team (Late st Contact Info) Description 08/22/2021 11:30 EDT Office Visit [facility] [address], [place] [address] Harsh Licona, SALES PLANNER [address] [facility] [address] [place] [address] Sinus pressure (Primary Dx) Social History Tobacco Use Types [...] Sign Reading Time Taken Comments Blood Pressure 140/72 08/22/2021 1235 EDT Pulse 62 08/22/2021 1235 EDT Temperature 36.8 ??C (98.3 ??F) 08/22/2021 1235 EDT Respiratory Rate 16 08/22/2021 1235 EDT Oxygen Saturation 100% 08/22/2021 1235 EDT Inhaled Oxygen Concentration - - Weight - - Height - - Body Mass Index - - documented in this encounter Functional Status Functional Status Response Date of Assess ment Are you deaf or do you have serious difficulty h earing? No 08/15/2021 documented as of this encounter Patient Instructions * Patient Instructions* Harsh Licona NP - 08/22/2021 11:30 EDT Images from the original note were not included. [facility] Patient Instructions Sinusitis: Care Instructions Your Care Instructions Sinusitis is an infection of the lining of the sinus cavities in your head. Sinusitis often followsa cold. It causes pain and pressure in your head and face. In most cases, sinusitis gets better on its own in 1 to 2 weeks. But some mild symptoms may last for several weeks. Sometimes antibiotics are needed. Follow-up care is a rowland part of your treatment and safety. Be sure to make and go to all appointments, and call your doctor if you are having problems. It's also a good idea to know your test resultsand keep a list of the medicines you take. How can you care for yourself at home? ?? Take an awdi-nio-ezyoaow pain medicine, such as acetaminophen (Tylenol), ibuprofen (Advil, Motrin), or naproxen (Aleve). Read and follow all instructions on the label. ?? If the doctor prescribed antibiotics, take them as directed. Do not stop taking them just because you feel better. You need to take the full course of antibiotics. ?? Be careful when taking wkmd-vsw-fgqdezf cold or flu medicines and Tylenol at the same time. Manyof these medicines have acetaminophen, which is Tylenol. Read the labels to make sure that you are not taking more than the recommended dose. Too much acetaminophen (Tylenol) can be harmful. ?? Breathe warm, moist air from a steamy shower, a hot bath, or a sink filled with hot water. Avoidcold, dry air. Using a humidifier in your home may help. Follow the directions for cleaning the machine. ?? Use saline (saltwater) nasal washes. This can help keep your nasal passages open and wash out mucus and bacteria. You can buy saline nose drops at a grocery store or drugstore. Or you can make your own at home by adding 1 teaspoon of salt and 1 teaspoon of baking soda to 2 cups of distilled water. If you make your own, fill a bulb syringe with the solution, insert the tip into your nostril, and squeeze gently. Blow your nose. ?? Put a hot, wet towel or a warm gel pack on your face 3 or 4 times a day for 5 to 10 minutes eachtime. ?? Try a decongestant nasal spray like oxymetazoline (Afrin). Do not use it for more than 3 days rebecca row. Using it for more than 3 days can make your congestion worse. When should you call for help? Call your doctor now or seek immediate medical care if: ? You have new or worse swelling or redness in your face or around your eyes. ? You have a new or higher fever. Watch closely for changes in your health, and be sure to contact your doctor if: ? You have new or worse facial pain. ? The mucus from your nose becomes thicker (like pus) or has new blood in it. ? You are not getting better as expected. Where can you learn more? Go to https://www.[email or web address]/Tamarac or log into your [employer] account at [email or web address].Tamarac.org Enter I933 in the search box to learn more about Sinusitis: Care Instructions. Current as of: February 09, 2021?Content Version: 13.2 ?? [employer]. Care instructions adapted under license by [facility]. If you have questions about a medical condition or this instruction, always ask your healthcare professional. [employer] disclaims any warranty or liability for your use of this information. documented in this encounter Ordered Prescriptions Prescription Sig Dispensed Refills Start Date End Da te doxycycline (VIBRA-TABS) 100 mg tabletIndications:Sinus pressure Take 1 Tablet by mouth 2 times daily for 5 days. 10 Tablet 08/22/2021 08/27/2021 documented in this encounter Progress Notes * Violette Garcia MA - 08/22/2021 1130 EDT CC/HPI: Patient reports worsening bilateral tinnitus, headache, sinus and congestion/runny nose x 3weeks. He is concerned it has now turned into a sinus infection. Has a history of allergies and takes something daily. Patient denies sore throat, cough, or shortness of breath. He was seen in the ER on 08/15 for this issue. Covid Screening: In the last 72 hours, has the patient had: New or unusual cough, shortness of breath, new nasal congestion, sore throat, fever, chills, body aches, or new loss of taste or smell without a reasonable alternative diagnosis*? (If yes, assign to ARC) See above In the past 10 days, has the patient had a positive Covid test OR a confirmed close Covid exposure (<6ft for > 15mins in 24hr period)? (if yes, assign to ARC, regardless of vaccination status) No Is the patient fully Covid vaccinated? Yes Approximate date of last dose? April 2021 *may be determined by RN or in discussion with available provider (USER INTERFACE DESIGNER's and CCA's can defer to Charge Nurse to complete triage when appropriate) PCP: UNKNOWN,PROVIDER * Harsh Licona NP - 08/22/2021 1130 EDT [facility] Chief Complaint(s): Sinus Problems, Headache, and Tinnitus Assessment & Plan: 1. Sinus pressure Jayy is a pleasant 46-year-old male, non-smoker, presenting with ongoing sinus pressure preceded by several months of tinnitus. I think they are likely mutually exclusive. He describes symptoms that could be consistent with a sphenoid sinusitis, electing to treat with a short course of doxycycline. Side effects and interactions with the doxycycline were reviewed with patient. Encouraged on continued supportive measures, monitoring. Follow up with ENT as planned. He is working to establish PCP in the [facility]; he was pushed to do this soon. Return sooner for worsening or concerning symptoms such as changes in vision, weakness, worsening headache, loss of hearing, dizziness. He verbalizes understanding and agreement. - doxycycline (VIBRA-TABS) 100 mg tablet; Take 1 Tablet by mouth 2 times daily for 5 days. Dispense: 10 Tablet; Refill: 0 Reason for referral to [facility]: headache, congestion Where patient was examined: Exam room 5 HPI: Jayy presents to [facility] for concern of possible sinus infection. He was seen in the ED 08/15 for concern of bilateral tinnitus, which had been worsening over severalweeks, but initially started several months prior. This was felt to be reassuring, and no imaging was considered. Referral made to ENT; follow up planned for October, and he wants to know if it's possible not to wait that long. It occurred to him that he may have a sinus infection now, which could be contributing to increasedtinnitus. Tinnitus is not pulsatile. Constant. Bilateral. He reports dull pain in the back of his right head, with pressure into his right face. He takes allergy medications regularly, and notes a change when they wear off. Wondering if there could be a secondary sinus issue. Reports a history of TMJ issue, which has never previously given him complications, except now whenhe opens the jaw he will get cracking and popping in his right ear. Pressure in the sinuses is not positional for laying down/leaning forward, but he does note heaviness in the right side of his head. He describes right sided posterior headache, but most in his neck, which he believes is a tension headache. Worse as the day goes on and his tension increases. He still denies any hearing changes, vision changes, vomiting, balance issues, abdominal pain, chest pain, weakness/tingling/numbness. I have reviewed current problem list and current medications. ROS: See HPI for details ROS Objective: Examination: Vitals: BP 140/72 (BP Cuff Location: Left arm, BP Patient Position: Sitting, BP Cuff Sizes: Adult, long) Pulse 62 Temp 36.8 ??C (98.3 ??F) (Oral) Resp 16 SpO2 100% There is no height or weight on file to calculate BMI. Physical Exam Vitals and nursing note reviewed. Constitutional: General: He is not in acute distress. Appearance: He is well-groomed and normal weight. He is not ill-appearing. HENT: Head: Normocephalic and atraumatic. Jaw: No trismus. Right Ear: Tympanic membrane and ear canal normal. No decreased hearing noted. Left Ear: Tympanic membrane and ear canal normal. No decreased hearing noted. Nose: No congestion. Right Turbinates: Swollen. Not pale. Left Turbinates: Swollen. Not pale. Right Sinus: No maxillary sinus tenderness or frontal sinus tenderness. Left Sinus: No maxillary sinus tenderness or frontal sinus tenderness. Mouth/Throat: Lips: [place]. Mouth: Mucous membranes are moist. Pharynx: Oropharynx is clear. Pulmonary: Effort: Pulmonary effort is normal. Musculoskeletal: Cervical back: Normal range of motion and neck supple. No rigidity or tenderness. Lymphadenopathy: Cervical: No cervical adenopathy. Skin: General: Skin is warm and dry. Neurological: Mental Status: He is alert. Psychiatric: Mood and Affect: Mood normal. Behavior: Behavior normal. Behavior is cooperative. Data reviewed (past results):Reviewed and/or ordered active problem list, medication list, allergies, notes from last encounter This note may be in part documented using dictation software. There may be errors, omissions or typos from use of dictation. documented in this encounter Plan of Treatment Upcoming Encounters Date Type Department Care Team (Late st Contact Info) Description 04/10/2024 10:15 EST Office Visit [facility] Rheumatology [address] [place] [address] Tee Narayanan MBBS [address] [place] [address], [facility] [address] [place] [address] documented as of this encounter Visit Diagnoses Diagnosis Sinus pressure- Primary Other diseases of nasal cavity and sinuses documented in this encounter Care Teams Criminal Justice Social Worker Relationship Specialty Start Date End Date Unknown, Provider, PCP - General 05/25/16 08/24/22 documented as of this encounter
--- OUTSIDE RECORDS SUMMARY | 2024-01-07 09:08 | XMS_ITS | Encounter Summary ---
Author Organization [facility] Address [address] [place] [address] Care Team Providers Care Data Developer Name Role Phone Unknown, Provider Primary Care Provider Encounter Details Date Type Department Care Team (Late st Contact Info) Description 05/24/2016 Historical Results Only [facility] [place] [id number] Meenu Vyas PA-C [address] [place] [address] [phone] Social History Tobacco Use Types Packs/Day Years Used Date Smoking Tobacco: Never Assessed Sex and Gender Information Value Date Recorded Sex Assigned at Not on file Gender Identity Male 08/15/2021 15:14 EDT Sexual Orientation Not on file documented as of this encounter Plan of Treatment Upcoming Encounters Date Type Department Care Team (Late st Contact Info) Description 04/10/2024 10:15 EST Office Visit [facility] Rheumatology [address] [place] [address] Tee Narayanan MBBS [address] [facility], [facility] [address] [place] [address] documented as of this encounter Procedures Procedure Name Priority Date/Time Associated Diagnosis Comments VITAMIN D 25 POC - [facility] Routine 05/24/2016 9:57 EST LIPID PANEL POC - CV Routine 6 9:57 EST COMPREHENSIVE METABOLIC POC - [facility] Routine 05/24/2016 9:57 EST THYROID STIM HORMONE POC - CV Routine 05/24/2016 9:57 EST MAGNESIUM POC - CV Routine 05/24/2016 9:57 EST CBC W/PLT & DIFF,POINT OF CARE - CV Routine 05/24/2016 9:57 EST POCT CHOLESTEROL LDL ([facility]) Routine 05/24/2016 9:57 EST documented in this encounter Results * (ABNORMAL) VITAMIN D 25 POC - CV (05/24/2016 9:57 EST) VIT D, 25 HYDROXY - CV 18(L) 30 - 100 NG/ML 06/02/2016 10:00 EST [facility] 05/24/2016 9:57 EST 05/24/2016 9:57 EST Meenu Vyas PA-C CHEMISTRY & BLOOD GA S ORDERABLES [facility] * THYROID STIM HORMONE POC - CV (05/24/2016 9:57 EST) Pathologist [facility] THYROID STIM HORMONE - CV 2.85 0.34 - 5.60 UIU/ML 06/02/2016 10:00 EST [facility] 05/24/2016 9:57 EST 05/24/2016 9:57 EST [facility] Lilliam PA-C CHEMISTRY & BLOOD GA S ORDERABLES [facility] * MAGNESIUM POC - CV (05/24/2016 9:57 EST) Magnesium 2.00 1.60 - 2.30 MG/DL 06/02/2016 10:00 EST [facility] 05/24/2016 9:57 EST 05/24/2016 9:57 EST Meenu Vyas PA-C CHEMISTRY & BLOOD GA S ORDERABLES [facility] * (ABNORMAL) LIPID PANEL POC - [facility] (05/24/2016 9:57 EST) Triglyceride 178(H) 0.00 - 150.00 MG/DL 06/02/2016 10:00 EST [facility] Cholesterol 253(H) 0.00 - 200.00 MG/DL 06/02/2016 10:00 [facility] HDL 51 40.00 - 60.00 MG/DL 06/02/2016 10:00 [facility] 05/24/2016 9:57 EST 05/24/2016 9:57 EST Meenu Vyas PA-C CHEMISTRY & BLOOD GA S ORDERABLES Performing Organization Address City/[facility]/ZIP Co de Phone Number [facility] * (ABNORMAL) POCT CHOLESTEROL LDL ([facility]) (05/24/2016 9:57 EST) LDL CHOLESTEROL - [facility] 166(H) 60 - 100 mg/dl 06/02/2016 10:00 [facility] 05/24/2016 9:57 EST 05/24/2016 9:57 EST Meenu Vyas PA-C POINT OF CARE TEST O RDERABLES [facility] * COMPREHENSIVE METABOLIC POC - [facility] (05/24/2016 9:57 EST) Albumin % 4.1 3.50 - 5.00 G/DL 06/02/2016 10:00 [facility] ALKALINE PHOSPHATASE - [facility] 58 38.00 - 126.00 U/L 06/02/2016 10:00 [facility] BILIRUBIN TOTAL 0.5 0.20 - 1.30 MG/DL 06/02/2016 10:00 [facility] BUN - [facility] 16 7.00 - 20.00 MG/DL 06/02/2016 10:00 [facility] CALCIUM - [facility] 9.4 8.50 - 10.50 MG/DL 06/02/2016 10:00 [facility] Chloride 103 98.00 - 107.00 MMOL/L 06/02/2016 10:00 [facility] CO2 Total 28 22.00 - 30.00 MMOL/L 06/02/2016 10:00 [facility] CREATININE 0.9 0.70 - 1.50 MG/DL 06/02/2016 10:00 [facility] Anion Gap 11 7 - 17 06/02/2016 10:00 [facility] GLUCOSE - [facility] 74 70.00 - 100.00 MG/DL 06/02/2016 10:00 [facility] Potassium 4.4 3.50 - 5.10 MMOL/L 06/02/2016 10:00 [facility] Sodium 142 137.00 - 145.00 MMOL/L 06/02/2016 10:00 [facility] TOTAL PROTEIN - [facility] 7.3 6.30 - 8.20 G/DL 06/02/2016 10:00 [facility] SGOT/AST - [facility] 26 15.00 - 46.00 U/L 06/02/2016 10:00 [facility] SGPT/ALT - [facility] 41 13.00 - 69.00 U/L 06/02/2016 10:00 [facility] 05/24/2016 9:57 EST 05/24/2016 9:57 EST Meenu Vyas PA-C CHEMISTRY & BLOOD GA S ORDERABLES [facility] * (ABNORMAL) CBC W/PLT & DIFF,POINT OF CARE - [facility] (05/24/2016 9:57 EST) Gran # 1.9 1.4 - 6.5 X10E3/UL 06/02/2016 10:00 [facility] GRAN % - [facility] 37.9(L) 42.2 - 75.2 % 06/02/2016 10:00 [facility] HEMATOCRIT - [facility] 40.9 35.0 - 60.0 % 06/02/2016 10:00 [facility] HEMOGLOBIN - [facility] 13.7 11.0 - 18.0 G/DL 06/02/2016 10:00 [facility] LYMPH # - CV 2.8 1.2 - 3.4 X10E3/UL 06/02/2016 10:00 [facility] LYMPH% - [facility] 55.5(H) 20.5 - 51.1 % 06/02/2016 10:00 [facility] MEAN CORPUSCULAR HGB - [facility] 28.8 27.0 - 31.0 PG 06/02/2016 10:00 [facility] MEAN CORPUSCULAR HGB CONC - [facility] 33.4 33.0 - 37.0 G/DL 06/02/2016 10:00 [facility] MEAN CELL VOLUME - [facility] 86.2 80.0 - 99.9 FL 06/02/2016 10:00 [facility] MONO # - [facility] 0.3 0.1 - 0.6 X10E3/UL 06/02/2016 10:00 [facility] MONO% - [facility] 6.6 1.7 - 9.3 % 06/02/2016 10:00 [facility] MEAN PLATELET VOLUME - [facility] 7.5(L) 7.8 - 11.0 FL 06/02/2016 10:00 [facility] PLATELET COUNT 272 150 - 450 X10E3/UL 06/02/2016 10:00 [facility] RED BLOOD COUNT - [facility] 4.75 4.00 - 6.00 X10E6/UL 06/02/2016 10:00 [facility] RED CELL DISTRI WIDTH - [facility] 13.0 11.6 - 13.7 % 06/02/2016 10:00 [facility] WHITE BLOOD COUNT - [facility] 5.0 4.5 - 10.5 X10E3/UL 06/02/2016 10:00 EST [facility] 05/24/2016 9:57 EST 05/24/2016 9:57 EST Meenu Vyas PA-C CHEMISTRY & BLOOD GA S ORDERABLES [facility] documented in this encounter Visit Diagnoses Not on filedocumented in this encounter Care Teams Data Developer Relationship Specialty Start Date End Date Unknown, Provider, PCP - General 05/25/16 08/24/22 documented as of this encounter
--- OUTSIDE RECORDS SUMMARY | 2024-01-07 09:08 | XMS_ITS | Encounter Summary ---
Author Organization [facility] Address [address] [place] [address] Care Team Providers Care Replenisher Name Role Phone Mariia Burt MD Primary Care Provider [phone] Reason for Referral * Radiology Services (Routine/Next Available) - Closed Specialty Diagnoses / Procedures Referred By Contac t Referred To Contact Radiology Diagnoses Sacroiliitis, not elsewhere classified (HCC-CMS) Procedures MR PELVIS W WO CONTRAST Mariia Burt MD [address] [place] [address] [facility] Referral ID Status Reason Start Date Expiration Date Visits Re quested Visits Authorized [id number] Closed 09/04/2022 11/02/2022 1 1 Reason for Visit * Radiology Services (Routine/Next Available) - Closed Specialty Diagnoses / Procedures Referred By Contac t Referred To Contact Radiology Diagnoses Sacroiliitis, not elsewhere classified (HCC-CMS) Procedures MR PELVIS W WO CONTRAST Mariia Burt MD [address] [place] [address] [facility] Referral ID Status Reason Start Date Expiration Date Visits Re quested Visits Authorized [id number] Closed 09/04/2022 11/02/2022 1 1 Encounter Details Date Type Department Care Team (Latest Contact Info) Description 10/12/2022 10:24 EDT - 10/12/2022 23:59 EDT Hospital Encounter [facility] MRI [address] [place] [address] Sacroiliitis, not elsewhere classified ([facility]) Discharge Disposition: Home or Self Care [...] Info) Description 04/10/2024 10:15 EST Office Visit [facility] Rheumatology [address] [place] [address] Tee Narayanan MBBS [address] [place] [address], [address] [place] [phone] documented as of this encounter Procedures Procedure Name Priority Date/Time Associated Diagnosis Comments MR PELVIS W WO CONTRAST Routine 10/12/2022 11:45 EDT Sacroiliitis, not elsewhere classified ([facility]) documented in this encounter Results * MR PELVIS W WO CONTRAST (10/12/2022 11:45 EDT) Anatomical Region Laterality Modality Body, Pelvis Magnetic Resonan ce 10/12/2022 11:5 3 EDT Addenda Addendum by Madhav Olguin MD on 10/25/2022 9:33 EDT Addendum: ADDENDUM: TECHNIQUE: Multiplanar multisequence MR imaging of the PELVIS was obtained without AND WITH IV ADMINISTRATION OF gadolinium contrast. Impressions 10/12/2022 11:53 EDT 1. Bilateral asymmetric sacroiliitis. This includes right SI joint iliac, predominately iliac sided bony sclerosis and edema. On the left, there is chronic appearing serpiginous low T1 signal adjacent to the joint within the iliac bone (series 9 image 13). Narrative 10/12/2022 11:53 EDT INDICATION: BILATERAL SACROILIAC JOINT ARTHRITIS, EVAL FOR INFLAMMATORY SACROILITIS ; BILATERAL SACROILIAC ARTHRITIS, EVAL FOR INFLAMMATORY SACROLILITIS TECHNIQUE: Multiplanar multisequence MR imaging of the sacroiliac joints was obtained without gadolinium contrast. COMPARISON: 08/25/2022 plain film. FINDINGS: On T1-weighted imaging, there is right SI joint iliac sided sclerosis as well as diffuse bone edema (series 9 image 10 and series 6 image 7). A small amount of edema is seen within the adjacent right sacrum (series 6 image 5). No clear bony fusion of the right SI joint is seen. No appreciable right SI joint effusion is seen. There is abnormal mottled signal in the medial aspect of the left iliac bone along the margin of the right SI joint with a somewhat serpiginous appearance (series 9 image 13 and series 10 image 13). Fatty infiltration is seen adjacent to the joint (series 8 image 21). No appreciable left-sided SI joint focal bone edema is seen. No left SI joint bony fusion is noted. The sacrum and coccyx are well aligned. The visualized portions of the lower lumbar spine are unremarkable. No deep pelvic free fluid is seen. Procedure Note Madhav Olguin MD - 10/12/2022 INDICATION: BILATERAL SACROILIAC JOINT ARTHRITIS, EVAL FOR INFLAMMATORYSACROILITIS ; BILATERAL SACROILIAC ARTHRITIS, EVAL FOR INFLAMMATORYSACROLILITIS TECHNIQUE: Multiplanar multisequence MR imaging of the sacroiliac jointswas obtained without gadolinium contrast. COMPARISON: 08/25/2022 plain film. FINDINGS: On T1-weighted imaging, there is right SI joint iliac sidedsclerosis as well as diffuse bone edema (series 9 image 10 and series 6image 7). A small amount of edema is seen within the adjacent right sacrum(series 6 image 5). No clear bony fusion of the right SI joint is seen. Noappreciable right SI joint effusion is seen. There is abnormal mottled signal in the medial aspect of the left iliacbone along the margin of the right SI joint with a somewhat serpiginousappearance (series 9 image 13 and series 10 image 13). Fatty infiltrationis seen adjacent to the joint (series 8 image 21). No appreciableleft-sided SI joint focal bone edema is seen. No left SI joint bony fusionis noted. The sacrum and coccyx are well aligned. The visualized portions of thelower lumbar spine are unremarkable. No deep pelvic free fluid is seen. IMPRESSION 1. Bilateral asymmetric sacroiliitis. This includes right SI joint iliac,predominately iliac sided bony sclerosis and edema. On the left, there ischronic appearing serpiginous low T1 signal adjacent to the joint withinthe iliac bone (series 9 image 13). Mariia Burt MD IMG MRI ORDERABLES documented in this encounter Visit Diagnoses Diagnosis Sacroiliitis, not elsewhere classified ([facility]) Sacroiliitis, not elsewhere classified documented in this encounter Administered Medications Inactive Administered Medications - up to 3 most recent administrations Medication Order MAR Action Action Date Dose Rate Site gadoterate meglumine solution 1-30 mL 1-30 mL, intravenous, Once in imaging, 1 dose, Starting on Mouna 10/12/22 at 1050, Until Mouna 10/12/22 at 1146, Routine, Imaging Protocol Orders Given 10/12/2022 11:46 EDT 15 mL documented in this encounter Orders Medications Ordered That Benoit ht Not Have Been Administered Count Last Ordered Date First Ordered Date gadoterate meglumine solution 1-30 mL 1 04/2023 documented in this encounter Care Teams Replenisher Relationship Specialty Start Date End Date Mariia Burt MD [address] [place] [address] PCP - General Family Medicine - Primary Care 08/25/22 documented as of this encounter
--- OUTSIDE RECORDS SUMMARY | 2024-01-07 09:08 | XMS_ITS ---
Author Organization [facility] Address [address] [place] [address] Care Team Providers Care Scrap Metal Processing Worker Name Role Phone Mariia Burt MD Primary Care Provider [phone] Rheumatology Status:Enrolled (Active) Start date:05/25/2023 Enrollment date:05/29/2023 Enrollment reason:Referred by provider Current support & services provided:Clinical Management, Refill Management, Benefits and PA Management Linked medications:adalimumab (Active) Linked problems:Bilateral sacroiliitis (HCC-CMS) (Active), Undifferentiated spondyloarthropathy (Active) Case Team Name Relationship Phone Humble Sheikh [facility] Pharmacist(Responsible Staff) Continued Care and Services Coordination
--- OUTSIDE RECORDS SUMMARY | 2024-01-07 09:08 | XMS_ITS | Encounter Summary ---
Author Organization [facility] Address [address] [place] [address] Care Team Providers Care Textile Designer Name Role Phone Mariia Burt MD Primary Care Provider [phone] Encounter Details Date Type Department Care Team (Late st Contact Info) Description 09/05/2022 Orders Only [facility] MRI [address] [place] [address] Brittnee Underwood Social History Tobacco Use Types [...] Info) Description 04/10/2024 10:15 EST Office Visit [facility] Rheumatology [address] [place] [address] Tee Narayanan MBBS [address] [facility], [facility] [address] [place] [address] documented as of this encounter Visit Diagnoses Not on filedocumented in this encounter Care Teams Textile Designer Relationship Specialty Start Date End Date Mariia Burt MD [address] [place] [address] PCP - General Family Medicine - Primary Care 08/25/22 documented as of this encounter
--- OUTSIDE RECORDS SUMMARY | 2024-01-07 09:08 | XMS_ITS | Encounter Summary ---
Author Organization [facility] Address [address] [place] [address] Care Team Providers Care Tape Coater Name Role Phone Mariia Burt MD Primary Care Provider [phone] Encounter Details Date Type Department Care Team (Late st Contact Info) Description 08/31/2022 Orders Only [facility] MRI [address] [place] [address] Couture, Gricelda Social History Tobacco Use Types Packs/Day Years [...] Info) Description 04/10/2024 10:15 EST Office Visit [facility] Rheumatology [address] [place] [address] Tee Narayanan MBBS [address] [facility], [facility] [address] [place] [address] documented as of this encounter Visit Diagnoses Not on filedocumented in this encounter Care Teams Tape Coater Relationship Specialty Start Date End Date Mariia Burt MD [address] [place] [phone] PCP - General Family Medicine - Primary Care 08/25/22 documented as of this encounter
--- OUTSIDE RECORDS SUMMARY | 2024-01-07 09:08 | XMS_ITS | Encounter Summary ---
Author Organization [facility] Address [address] [place] [address] Care Team Providers Care Sash Sticker Name Role Phone Mariia Burt MD Primary Care Provider [phone] Reason for Referral * Radiology Services (Routine/Next Available) - Authorization Not Required Specialty Diagnoses / Procedures Referred By Rachelac t Referred To Contact Diagnoses Sacroiliitis, not elsewhere classified ([facility]) Encounter for imaging to screen for eye metal prior to magnetic resonance imaging (MRI) Procedures XR ORBITS FOR FOREIGN BODY Mariia Burt MD [address] [place] [address] [facility] Referral ID Status Reason Start Date Expiration Date Visits Requested Visits Authorized [id number] Authorization Not Required 09/07/2022 1 1 Reason for Visit * Radiology Services (Routine/Next Available) - Authorization Not Required Specialty Diagnoses / Procedures Referred By Contac t Referred To Contact Diagnoses Sacroiliitis, not elsewhere classified ([facility]) Encounter for imaging to screen for eye metal prior to magnetic resonance imaging (MRI) Procedures XR ORBITS FOR FOREIGN BODY Mariia Burt MD [address] [place] [address] [facility] Referral ID Status Reason Start Date Expiration Date Visits Requested Visits Authorized [id number] Authorization Not Required 09/07/2022 1 1 Encounter Details Date Type Department Care Team (Latest Contact Info) Description 10/12/2022 10:23 EDT Hospital Encounter [facility] Xray [address] [place] [address] Sacroiliitis, not elsewhere classified ([facility]); Encounter for imaging to screen for eye metal prior to magnetic resonance imaging (MRI) Discharge Disposition: Home or Self Care Social [...] Info) Description 04/10/2024 10:15 EST Office Visit [facility] Rheumatology [address] [place] [address] Tee Narayanan MBBS [address] [facility], [facility] [address] [place] [address] documented as of this encounter Procedures Procedure Name Priority Date/Time Associated Diagnosis Comments XR ORBITS FOR FOREIGN BODY Routine 10/12/2022 10:39 EDT Sacroiliitis, not elsewhere classified (HCC-CMS) Encounter for imaging to screen for eye metal prior to magnetic resonance imaging (MRI) documented in this encounter Results * XR ORBITS FOR FOREIGN BODY (10/12/2022 10:39 EDT) Anatomical Region Laterality Modality Computed Radiogr aphy 10/12/2022 10:4 7 EDT Impressions 10/12/2022 10:47 EDT No orbit metal foreign body identified. Narrative 10/12/2022 10:47 EDT INDICATION: BILATERAL SACROILIAC JOINT ARTHRITIS, EVAL FOR INFLAMMATORY SACROILITIS ; H/O METAL INJURY TO EYE, PRE MRI SCREENING . COMPARISON: None. TECHNIQUE: AP and lateral views of the orbits were obtained for evaluation of possible metal foreign body prior to MRI. FINDINGS: No radiopaque metal foreign body is seen superimposed over either orbit. Procedure Note J Carlos Alatorre MD - 10/12/2022 INDICATION: BILATERAL SACROILIAC JOINT ARTHRITIS, EVAL FOR INFLAMMATORYSACROILITIS ; H/O METAL INJURY TO EYE, PRE MRI SCREENING . COMPARISON: None. TECHNIQUE: AP and lateral views of the orbits were obtained for evaluationof possible metal foreign body prior to MRI. FINDINGS: No radiopaque metal foreign body is seen superimposed over either orbit. IMPRESSION No orbit metal foreign body identified. Mariia Burt MD IMG DIAGNOSTIC IMAGI NG ORDERABLES documented in this encounter Visit Diagnoses Diagnosis Sacroiliitis, not elsewhere classified ([facility]) Sacroiliitis, not elsewhere classified Encounter for imaging to screen for eye metal prior to magnetic resonance imaging (MRI) documented in this encounter Care Teams Sash Sticker Relationship Specialty Start Date End Date Mariia Burt MD [address] [place] [address] PCP - General Family Medicine - Primary Care 08/25/22 documented as of this encounter
--- OUTSIDE RECORDS SUMMARY | 2024-01-07 09:08 | XMS_ITS | Encounter Summary ---
Author Organization [facility] Address [address] [place] [address] Care Team Providers Care Bible Worker Name Role Phone Unknown, Provider Primary Care Provider [phone] Encounter Details Date Type Department Care Team (Latest Contact Info) Description 10/25/2021 Travel Social History Tobacco Use Types Packs/Day [...] Info) Description 04/10/2024 10:15 EST Office Visit [facility] [place] [address] [place], [place] [address] Tee Narayanan MBBS [address] [facility], [facility] [address] [place] [address] documented as of this encounter Visit Diagnoses Not on filedocumented in this encounter Care Teams Bible Worker Relationship Specialty Start Date End Date Unknown, Provider, PCP - General 05/25/16 08/24/22 documented as of this encounter
--- OUTSIDE RECORDS SUMMARY | 2024-01-07 09:08 | XMS_ITS | Encounter Summary ---
Author Organization [facility] Address [address] [place] [address] Care Team Providers Care Senior Ios Developer Name Role Phone Unknown, Provider Primary Care Provider Reason for Visit * Reason Comments Hand Injury Encounter Details Date Type Department Care Team (Late st Contact Info) Description 12/09/2021 11:15 EDT Walk-In [facility] [address] [place] [id number] Betsy Hanks, PA-C [address] [facility] [address] [place] [address] Hand injury, right, initial encounter (Primary Dx) Social History Tobacco Use Types [...] Sign Reading Time Taken Comments Blood Pressure 110/60 12/09/2021 1118 EDT Pulse 67 12/09/2021 1118 EDT Temperature 36.4 ??C (97.5 ??F) 12/09/2021 1118 EDT Respiratory Rate - - Oxygen Saturation 97% 12/09/2021 1118 EDT Inhaled Oxygen Concentration - - Weight 79.4 kg (175 lb) 12/09/2021 1118 EDT Height 182.9 cm (6') 12/09/2021 1118 EDT Body Mass Index 23.73 12/09/2021 1118 EDT documented in this encounter Functional Status Functional Status Response Date of Assess ment Are you deaf or do you have serious difficulty h earing? No 08/15/2021 documented as of this encounter Patient Instructions * Patient Instructions* Betsy Hanks - 12/09/2021 11:15 EDT Good news, the radiologist did not see concern for a fracture. I suspect you injured the small muscles of the hand we were talking about called the thenar eminence. This may take 1-2 weeks to feel better. The more you rest initially the quicker you will improve. Ice, elevate, compression can be helpful.Ibuprofen and tylenol may help as well. Follow up with worsening or prolonged symptoms. documented in this encounter Progress Notes * Felipa Vera RN - 12/09/2021 1115 EDT CC/HPI: injury to right hand while working yesterday. Covid Screening: In the last 72 hours, has the patient had: New or unusual cough, shortness of breath, new nasal congestion, sore throat, fever, chills, body aches, or new loss of taste or smell without a reasonable alternative diagnosis*? (If yes, assign to [facility])- NO In the past 10 days, has the patient had a positive Covid test OR a confirmed close Covid exposure (<6ft for > 15mins in 24hr period)? (if yes, assign to [facility], regardless of vaccination status)- NO *may be determined by RN or in discussion with available provider (PAPER INSERTER's and CCA's can defer to Charge Nurse to complete triage when appropriate) PCP: UNKNOWN,PROVIDER * Betsy Hanks - 12/09/2021 1115 EDT [facility] Express [facility] Chief Complaint(s): Chief Complaint Patient presents with ??? Hand Injury Assessment & Plan: 1. Hand injury, right, initial encounter XR HAND RIGHT 3 OR MORE VIEWS New Prescriptions No medications on file Given patient's point tenderness on exam I opted to proceed with x-ray. Rad read confirms no fracture. I suspect contusion or strain of the thenar eminence. Advised to rest, ice, elevation, time. Strict follow-up with any worsening or prolonged symptoms as discussed. HPI: Patient was working for himself in his garage when he injured his right hand. Patient notes he was using his palm to hit a metal mark and on one of the hits he felt significant pain. Patient notes injury occurred yesterday. He notes he has normal range of motion of the hand. Notes he does have pain with flexion and extension of the thumb. No recent fracture or other significant trauma to the hand. The history is provided by the patient. ROS: Review of Systems Constitutional: Negative for fever. HENT: Negative for sore throat. Respiratory: Negative for cough and shortness of breath. Musculoskeletal: Negative for myalgias. Neurological: No change in taste or sense of smell Objective: Vitals and nursing notes reviewed Examination: BP 110/60 (BP Cuff Location: Left arm, BP Patient Position: Sitting, BP Cuff Sizes: Adult, long) Pulse 67 Temp 36.4 ??C (97.5 ??F) (Oral) Ht 182.9 cm (72) Wt 79.4 kg (175 lb) SpO2 97% BMI 23.73 kg/m?? Physical Exam Constitutional: General: He is not in acute distress. Appearance: Normal appearance. Musculoskeletal: Comments: Right hand without swelling or deformity. The patient has point tenderness over the mid thenar eminence. The patient has normal strength with opposition and can hold against resistance. Normal flexion and extension of the digits and wrist. NV intact distally. Skin: General: Skin is warm and dry. Neurological: Mental Status: He is alert. Gait: Gait normal. This note may be in part documented using voice dictation software. Please forgive any errors or omissions that may result from use of dictation. documented in this encounter Plan of Treatment Upcoming Encounters Date Type Department Care Team (Late st Contact Info) Description 04/10/2024 10:15 EST Office Visit Health system Rheumatology [address] [place] [address] Tee Narayanan MBBS [address] [facility], [address] [place] [phone] documented as of this encounter Procedures Procedure Name Priority Date/Time Associated Diagnosis Comments XR HAND RIGHT 3 OR MORE VIEWS STAT 12/09/2021 11:59 EDT Hand injury, right, initial encounter documented in this encounter Results * XR HAND RIGHT 3 OR MORE VIEWS (12/09/2021 11:59 EDT) Anatomical Region Laterality Modality Upper Extremities Right Computed Radio graphy 12/09/2021 12:1 1 EDT Impressions 12/09/2021 12:11 EDT No acute osseous abnormality. Narrative 12/09/2021 12:11 EDT INDICATION: pt hit hand on metal post. Point tender over mid thenar eminence, r.o fracture TECHNIQUE: ??3 views right hand. COMPARISON: None. FINDINGS: The bony alignment is anatomic. No fracture is detected. The joint spaces are preserved. Procedure Note Angel Mazariegos MD - 12/09/2021 INDICATION: pt hit hand on metal post. Point tender over mid thenareminence, r.o fracture TECHNIQUE: 3 views right hand. COMPARISON: None. FINDINGS: The bony alignment is anatomic. No fracture is detected. Thejoint spaces are preserved. IMPRESSION No acute osseous abnormality. Betsy Hanks PA-C IMG DIAGNOSTIC IMAGING ORDERABLES documented in this encounter Visit Diagnoses Diagnosis Hand injury, right, initial encounter- Primary documented in this encounter Care Teams Senior Ios Developer Relationship Specialty Start Date End Date Unknown, Provider, PCP - General 05/25/16 08/24/22 documented as of this encounter
--- OUTSIDE RECORDS SUMMARY | 2024-01-07 09:08 | XMS_ITS | Encounter Summary ---
Author Organization [facility] Address [address] [place] [address] Care Team Providers Care Instrument Calibrator Name Role Phone Mariia Burt MD Primary Care Provider [phone] Reason for Referral * Radiology Services (Routine/Next Available) - Authorization Not Required Specialty Diagnoses / Procedures Referred By Contac t Referred To Contact Diagnoses Low back pain, unspecified Procedures XR LUMBAR SPINE 4+ VIEWS XR LUMBAR SPINE COMPLETE WITH FLEX/EXT AND OBLIQUES MIN 6 VIEWS Mariia Burt MD [address] [place] [address] [facility] [place] Reason Start Date Expiration Date Visits Requested Visits Authorized [id number] Authorization Not Required 08/23/2022 1 1 * Radiology Services (Routine/Next Available) - Authorization Not Required Specialty Diagnoses / Procedures Referred By Contac t Referred To Contact Diagnoses Pain in right hip Procedures XR HIP RIGHT 2-3 VIEWS, OPTIONAL PELVIS Mariia Burt MD [address] [place] [address] [facility] [place] Status Reason Start Date Expiration Date Visits Requested Visits Authorized [id number] Authorization Not Required 08/23/2022 1 1 * Radiology Services (Routine/Next Available) - Authorization Not Required Specialty Diagnoses / Procedures Referred By Contac t Referred To Contact Diagnoses Low back pain, unspecified Procedures XR SACROILIAC JOINTS 3 OR MORE VIEWS Mariia Burt MD [address] [place] [address] [facility] [place] Status Reason Start Date Expiration Date Visits Requested Visits Authorized [id number] Authorization Not Required 08/23/2022 1 1 Reason for Visit * Radiology Services (Routine/Next Available) - Authorization Not Required Specialty Diagnoses / Procedures Referred By Contac t Referred To Contact Diagnoses Low back pain, unspecified Procedures XR SACROILIAC JOINTS 3 OR MORE VIEWS Mariia Burt MD [address] [place] [address] [facility] [place] Status Reason Start Date Expiration Date Visits Requested Visits Authorized [id number] Authorization Not Required 08/23/2022 1 1 Encounter Details Date Type Department Care Team (Latest Contact Info) Description 08/25/2022 9:58 EDT Hospital Encounter [facility] Xray [address] [place] [address] Low back pain, unspecified; Pain in right hip Discharge Disposition: Home or Self Care Social [...] Office Visit [facility] Rheumatology [address] [place] [address] Tee Narayanan MBBS [address] [facility] [place] [address] documented as of this encounter Procedures Procedure Name Priority Date/Time Associated Diagnosis Comments XR LUMBAR SPINE 4+ VIEWS Routine 08/25/2022 11:02 EDT Low back pain, unspecified XR SACROILIAC JOINTS 3 OR MORE VIEWS Routine 08/25/2022 10:35 EDT Low back pain, unspecified XR HIP RIGHT 2-3 VIEWS, OPTIONAL PELVIS Routine 08/25/2022 10:35 EDT Pain in right hip documented in this encounter Results * XR [...] 2. No significant spondylolisthesis. Mariia Burt MD [facility] [place] DIAGNOSTIC IMAGI NG ORDERABLES * XR HIP RIGHT 2-3 VIEWS, OPTIONAL PELVIS (08/25/2022 10:35 EDT) Anatomical Region Laterality Modality Lower Extremities Right Computed Radio graphy 08/25/2022 10:4 0 EDT Impressions 08/25/2022 10:40 EDT 1. No right hip osseous abnormality is detected. Narrative 08/25/2022 10:40 EDT INDICATION: Pain in right hip TECHNIQUE: 2 views right hip. COMPARISON: None. FINDINGS: The right hip is well aligned. The joint spaces preserved. No fractures seen. The right SI joint appears unremarkable. Procedure Note Madhav Olguin MD - 08/25/2022 INDICATION: Pain in right hip TECHNIQUE: 2 views right hip. COMPARISON: None. FINDINGS: The right hip is well aligned. The joint spaces preserved. Nofractures seen. The right SI joint appears unremarkable. IMPRESSION 1. No right hip osseous abnormality is detected. Mariia Burt MD [facility] [place] DIAGNOSTIC IMAGI NG ORDERABLES * XR SACROILIAC JOINTS 3 OR MORE VIEWS (08/25/2022 10:35 EDT) Anatomical Region Laterality Modality Spine Computed Radiogr aphy 08/25/2022 10:5 4 EDT Impressions 08/25/2022 10:54 EDT Mild left and minimal right sacroiliac arthrosis. Consider MR to assess for evidence of inflammatory sacroiliitis. Narrative 08/25/2022 10:54 EDT XR SACROILIAC JOINTS 3 OR MORE VIEWS ?? Signs and Symptoms/Comments: ??Low Back Pain Comparison: None. FINDINGS: Sacroiliac joints: 3 views were performed. Bones: No acute fracture or malalignment. Degenerative changes: Mild left and minimal right sacroiliac arthrosis, as evidenced by periventricular sclerotic changes. No definite ankylosis or erosions visible. Soft tissues: Unremarkable. Procedure Note Jaxon Black MD - 08/25/2022 XR SACROILIAC JOINTS 3 OR MORE VIEWS Signs and Symptoms/Comments: Low Back Pain Comparison: None. FINDINGS: Sacroiliac joints: 3 views were performed. Bones: No acute fracture or malalignment. Degenerative changes: Mild left and minimal right sacroiliac arthrosis, asevidenced by periventricular sclerotic changes. No definite ankylosis orerosions visible. Soft tissues: Unremarkable. IMPRESSION Mild left and minimal right sacroiliac arthrosis. Consider MR to assessfor evidence of inflammatory sacroiliitis. Mariia Burt MD [facility] DI[facility]IC IMAGI NG ORDERABLES documented in this encounter Visit Diagnoses Diagnosis Low back pain, unspecified Pain in right hip Pain in joint, pelvic region and thigh documented in this encounter Care Teams Instrument Calibrator Relationship Specialty Start Date End Date Mariia Burt MD [address] [place] [address] PCP - General Family Medicine - Primary Care 08/25/22 documented as of this encounter
[2024-01-07 16:38] LABS: ALT 34 U/L (16-63); AST 20 U/L (15-37); Albumin 3.9 g/dL (3.4-5.0); Alkaline Phosphatase 78 U/L (46-116); Anion Gap 5.1 mmol/L (3-11); BUN 12 mg/dL (7-18); Bilirubin, Total 0.21 mg/dL (0.2-1.0); CO2 30.9 mmol/L (21.0-32.0); Calcium 9.2 mg/dL (8.5-10.1); Calculated LDL 89 mg/dL (<100); Chloride 103 mmol/L (98-107); Cholesterol 172 mg/dL (<200); Estimated GFR 92.26 (mL/min/1.73m2); Glucose 77 mg/dL (74-106); HDL Cholesterol 49 mg/dL (40-60); Sodium 139 mmol/L (136-145); Total Protein 7.1 g/dL (6.4-8.2); Triglyceride 174 mg/dL (<150)
== END 2024-01-07 09:03 | disposition home or self-care (01) ==
LOC: NCHCN 09:02
PROVIDERS: PCP Family Medicine; Visit Provider Family Medicine
DX: E78.5 Hyperlipidemia, unspecified (principal)
CPT/HCPCS: 80053; 80061

== ENCOUNTER 2024-12-10 11:15 | Emergency (ER) | payer OTHER, BC, SELFPAY ==
--- NOTE | 2024-12-10 11:15 | DI.RAD_ITS ---
Exam(s) XR KNEE LT 3V AP,LAT,DEVENDRA EXAM: XR KNEE LT 3V AP,LAT,DEVENDRA CLINICAL HISTORY: LEFT KNEE PAIN. TECHNIQUE: 2D digital imaging was performed. Three views. COMPARISON: No exams were available for comparison FINDINGS: BONES: No acute fracture is present. No bony destructive lesion is seen. JOINTS: The joint spaces are maintained. The knee is normally aligned. No joint effusion is seen. Chondrocalcinosis. SOFT TISSUE: Normal. IMPRESSION: No acute abnormality. DATA REPOSITORY: RADIATION DOSE DELIVERED:
[2024-12-10 11:17] VITALS: BP 143/85; PULSE 75; RESP 18; TEMP 36.4; O2SAT 99
[2024-12-10 12:59] VITALS: BP 131/73; PULSE 75; RESP 18; TEMP 36.8; O2SAT 98
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
== END 2024-12-10 13:00 | disposition home or self-care (01) ==
LOC: ER 12:55
PROVIDERS: Emergency Provider Emergency Medicine; PCP Family Medicine
DX: M25.562 Pain in left knee (principal)
CPT/HCPCS: 99283 ×2; 73562

== ENCOUNTER 2025-02-11 14:48 | Outpatient (CLI) | payer BC, SELFPAY ==
[2025-02-11 14:23] LABS: Abs Immature Grans 0.01 10^3/uL (0.0-0.06); HCT 37.9 % (40.0-50.0); HGB 13.0 g/dL (13.5-17.5); Immature Grans % 0.2 %; MCH 29.1 pg (27.0-33.0); MCHC 34.3 % (32.0-36.0); MCV 85 fL (80-95); MPV 9.2 fL (8.0-11.0); Platelet Count 276 10^3/uL (130-400); RBC 4.47 10^6/uL (4.36-5.78); RDW 12.6 % (11.8-14.1); RDW-SD 38.7 fL; WBC 5.44 10^3/uL (4.4-10.8)
[2025-02-11 15:24] LABS: ALT 65 U/L (16-63); AST 29 U/L (15-37); Albumin 4.1 g/dL (3.4-5.0); Alkaline Phosphatase 63 U/L (46-116); Anion Gap 6.0 mmol/L (3-11); BUN 16 mg/dL (7-18); Bilirubin, Total 0.3 mg/dL (0.2-1.0); CO2 29.0 mmol/L (21.0-32.0); Calcium 9.3 mg/dL (8.5-10.1); Chloride 103 mmol/L (98-107); Estimated GFR 103.40 (mL/min/1.73m2); Glucose 85 mg/dL (74-106); Potassium 4.0 mmol/L (3.5-5.1); Sodium 138 mmol/L (136-145); Total Protein 7.8 g/dL (6.4-8.2)
== END 2025-02-11 14:49 | disposition home or self-care (01) ==
LOC: LBO 14:48
PROVIDERS: PCP Family Medicine; Visit Provider Student in an Organized Health Care Education/Training Program
DX: M45.0 Ankylosing spondylitis of multiple sites in spine (principal); M46.1 Sacroiliitis, not elsewhere classified; Z79.899 Other long term (current) drug therapy
CPT/HCPCS: 36415; 80053; 85025